=== PATIENT | female | born 1955 | race Caucasian/White ===

== ENCOUNTER → 2018-01-22 | Outpatient (CLI) | payer MEDICARE ==
--- NOTE | 2018-01-22 16:50 | WOMENS IMAGING REPORT ---
EXAM DESCRIPTION: BILAT SCREENING MAMMO W/CAD COMPLETED DATE/TIME: 01/22/2018 2:50 pm REASON FOR STUDY: ROUTINE SCREENING;Z12.31 Z12.31 ENCNTR SCREEN MAMMOGRAM FOR MALIGNANT NEOPLASM OF MICHAEL COMPARISON: 2008 TECHNIQUE: Standard craniocaudal and mediolateral oblique views of each breast recorded using [employer] acquisition. LIMITATIONS: None. FINDINGS: No masses, calcifications or architectural distortion. No areas of suspicion. Read with the assistance of CAD. .[facility] - R2 Cenova Version 1.3 .[facility] - R2 Cenova Version 1.3 .[facility] - R2 Cenova Version 2.4 .[facility] [place] R2 Cenova Version 2.4 .[facility] - R2 [employer] Version 9.2 IMPRESSION: NORMAL MAMMOGRAM. BIRADS 1. BREAST DENSITY: b. There are scattered areas of fibroglandular density. BIRAD: 1 NEGATIVE RECOMMENDATION: ROUTINE SCREENING Please continue yearly bilateral screening mammography/tomosynthesis in January 2019 COMMENT: The patient has been notified of the results by letter per SA requirements. Additional no tification policies are in place for contacting patient with suspicious or incomplete findings. Quality ID #[id number]: The [employer] recommends an annual screening mammogram for women aged 40 years or over. This facility utilizes a reminder system to ensure that all patients receive reminder letters, and/or direct phone calls for appointments. This includes reminders for routine scr eening mammograms, diagnostic mammograms, or other Breast Imaging Interventions when appropriate. Th is patient will be placed in the appropriate reminder system. The [employer] (ACR) has developed recommendations for screening MRI of the breast s in certain patient populations, to be used in conjunction with mammography. Breast MRI surveillanc e may be appropriate for women with more than 20% lifetime risk of developing breast cancer as deter mined by genetic testing, significant family history of the disease, or history of mantle radiation f or Hodgkins Disease. ACR Practice Guidelines 2008. TECHNICAL DOCUMENTATION: FINDING NUMBER: (1) ASSESSMENT: (1) JOB ID: [id number] [employer]- All Rights Reserved Reading location - IP/workstation name: [email or web address]
== END ==
LOC: WI 10:20
PROVIDERS: ATTEND Nurse Practitioner Family
DX: Z12.31 Encounter for screening mammogram for malignant neoplasm of breast (principal)
CPT/HCPCS: 77067

== ENCOUNTER → 2018-12-08 | Outpatient (CLI) | payer MEDICARE ==
--- NOTE | 2018-12-08 15:14 | RADIOLOGY REPORT (SQ) ---
EXAM DESCRIPTION: CHEST PA/LATERAL COMPLETED DATE/TIME: 12/08/2018 3:01 pm REASON FOR STUDY: COUGH COMPARISON: None. EXAM PARAMETERS: NUMBER OF VIEWS: two views TECHNIQUE: Digital Frontal and Lateral radiographic views of the chest acquired. RADIATION DOSE: NA LIMITATIONS: none FINDINGS: LUNGS AND PLEURA: No opacities, masses or pneumothorax. No pleural effusion. MEDIASTINUM AND HILAR STRUCTURES: No masses or contour abnormalities. HEART AND VASCULAR STRUCTURES: Heart normal size. No evidence for failure. BONES: No acute findings. HARDWARE: None in the chest. OTHER: No other significant finding. IMPRESSION: NO SIGNIFICANT RADIOGRAPHIC FINDING IN THE CHEST. TECHNICAL DOCUMENTATION: JOB ID: [id number] [employer]- All Rights Reserved Reading location - IP/workstation name: [email or web address]
== END ==
LOC: OD 14:45
PROVIDERS: ATTEND Nurse Practitioner Family
DX: R05 Cough (principal)
CPT/HCPCS: 71046

== ENCOUNTER 2020-06-22 09:18 | Day surgery (SDC) | payer MEDICARE ==
[~2020-06-22 09:18] MED LIST: BESIFLOXACIN HCL 0.6% OPH SUSP 5 ML BOTTLE OD PRN; CHONDR SU A NA/HYALUR INTRAOC KIT (SURGICARE) ONE; CYCLOPENTOLATE 0.2%/PHENYLEPHRINE 1% OPH SOLN 2 ML OD PRN; DORZOLAMIDE HCL 2%/TIMOLOL MALEAT 0.5% OPH SOLN 10 ML OD PRN; EPINEPHRINE INJ/PF 1 MG/1 ML AMPULE ONE; KETOROLAC TROMETHAMINE 0.45% 4 DROP/0.4 ML DROPERETTE OD PRN; LIDOCAINE 1%/PHENYLEPHRINE 1.5% 1 ML VIAL ONE; PREDNISOLONE ACETATE 1% OPH SUSP 5 ML OD PRN; TETRACAINE HCL 0.5% OPH SOLN 4 ML OD PRN; TROPICAMIDE 1% OPH SOLN 15 ML OD PRN
[2020-06-22] MEDS ORDERED: ONDANSETRON HCL INJ/PF 4 MG/2 ML SDV ONE (09:33)
[2020-06-22] MEDS ORDERED: MIDAZOLAM 2 MG/2 ML INJ ONE (09:33)
[2020-06-22] MEDS ORDERED: FENTANYL CITRATE INJ/PF 100 MCG/2 ML AMPUL ONE (09:34)
--- NOTE | 2020-06-22 10:33 | Operative Report ---
Operative Report-[facility] Operative Report: DATE OF SURGERY: June 22, 2020 PREOPERATIVE DIAGNOSIS: NUCLEAR CATARACT, RIGHT EYE. POSTOPERATIVE DIAGNOSIS: NUCLEAR CATARACT, RIGHT EYE. PROCEDURE PERFORMED: PHACOEMULSIFICATION WITH POSTERIOR CHAMBER INTRAOCULAR LENS IMPLANT, RIGHT EYE. SURGEON: Michelet Palafox DO MEDICATIONS AND ANESTHESIA: Versed: IV Versed Tetracaine drops: 1 to 2 drops given as needed COMPLICATION: None INDICATIONS FOR SURGERY: Medical necessity: Best corrected visual acuity worse than 20/40 secondary to cataracts with impairment of ability to carry out needs or desired activities, blurred vision, visual distortion, reduced contrast sensitivity and/or glare with association functional impairment and supporting documentation/testing, and cataracts causing symptomatic impairment of visual functions not corrected with tolerable changes in glasses or contact lenses interfering with activities of daily life. PROCEDURE: Consent: The risks, benefits and alternatives of this procedures was discussed with the patient. The patient read and signed the consent forms, was identified and was seated in the exam chair. IOL: MX 60 E 21.0 IOL Diopters: Phacoemulsification with posterior chamber intraocular lens implant: The face was prepped with 5% povidone iodine solution, and a few drops of 5% povidone iodine solution was instilled into the inferior fornix. A non-fenestrated drape was placed over the eye and the lids were parted with the speculum. A paracentesis was made with a 15 degree blade, and 1% lidocaine MPF followed by viscoelastic was injected into the anterior chamber. A 2.4 mm metal micro- keratome was used to create a temporal clear corneal incision. A circular anterior capsulorrhexis was created, followed by hydro-dissection and hydro- delineation. The phacoemulsification hand piece was inserted and the nucleus was removed with the Phaco chop technique. The irrigation-aspiration hand piece was used to remove the residual cortex, and vacuum the posterior capsule. The capsular bag was inflated and viscoelastic and the above-mentioned IOL was injected into the eye with care to insert both leaning and trailing haptics in the capsular bag. The irrigation/aspiration hand piece was reinserted to remove residual viscoelastic from the capsular bag and anterior chamber. The corneal incision was hydrated, and anterior chamber was inflated with sterile BSS via the paracentesis site, and found to be watertight. Postop medication: 1 drop of prednisolone into operative by followed by 1 drop of Cosopt into operative eye followed by 1 drop of Besivance intraoperative by other:
== END 2020-06-22 10:19 | disposition home or self-care (01) ==
LOC: SC 09:18
PROVIDERS: ATTEND Ophthalmology
DX: Z53.09 Procedure and treatment not carried out because of other contraindication (principal)
CPT/HCPCS: A9270; J3490; J0171; J2250; J2405; J3010

== ENCOUNTER 2020-06-22 15:52 | Inpatient (IN) | payer MEDICARE ==
--- NOTE | 2020-06-22 17:36 | ER Document Report ---
ED Medical Screen (RME) - General Chief Complaint: Blood Pressure Problem Stated Complaint: BLOOD PRESSURE ISSUES Time Seen by Provider: 06/22/20 17:23 Primary Care Provider: AMEE GRIMM FNP-C [Primary Care Provider] - Follow up as needed TRAVEL OUTSIDE OF THE [place] IN LAST 30 DAYS: No - HPI Notes: 06/22/20 17:35 64-year-old female to the emergency department with complaints of elevated blood pressure. She states she is post to get cataract surgery today but when she went her blood pressure was 190/100s. Patient states that she is had a little bit of shortness of breath with her blood pressure but she thought it was potentially just feeling nervous. She denies any chest pain or leg swelling. She denies any dizziness, lightheadedness. She states that her vision is not any worse than usual with her cataracts. She states that she called her primary care physician who is scheduled her for an appointment for tomorrow but they take wanted her to come to the emergency department for further evaluation tonight. I performed a brief medical screening exam on the patient determined that the patient needs further evaluation and management by main side provider. I have placed initial orders to help expedite care. - Related Data Allergies/Adverse Reactions: No Known Allergies Allergy (Verified 06/22/20 17:23) Home Medications: Lisinopril. Azathioprine. prednisone. hydroxychloroquine. hydrochlorothiazide. levothyroxine. mult vitamin. iron. claritin Past Medical History - Past Medical History Cardiac Medical History: Reports: Hx Hypertension Denies: Hx Heart Attack Pulmonary Medical History: Denies: Hx Asthma Neurological Medical History: Denies: Hx Cerebrovascular Accident, Hx Seizures GI Medical History: Denies: Hx Hepatitis, Hx Hiatal Hernia, Hx Ulcer Musculoskeltal Medical History: Reports Hx Arthritis Infectious Medical History: Denies: Hx Hepatitis Past Surgical History: Reports: Hx Hysterectomy. Denies: Hx Mastectomy, Hx Open Heart Surgery, Hx Pacemaker - Immunizations Hx Diphtheria, Pertussis, Tetanus Vaccination: No Physical Exam - Vital signs Vitals: Temp Pulse Resp BP Pulse Ox 98.7 F 108 H 20 190/95 H 98 06/22/20 15:56 06/22/20 15:56 06/22/20 15:56 06/22/20 15:56 06/22/20 15:56 Course - Vital Signs Vital signs: Temp Pulse Resp BP Pulse Ox 98.7 F 108 H 20 190/95 H 98 06/22/20 15:56 06/22/20 15:56 06/22/20 15:56 06/22/20 15:56 06/22/20 15:56 Doctor's Discharge - Discharge Referrals: AMEE GRIMM FNP-C [Primary Care Provider] - Follow up as needed
--- NOTE | 2020-06-22 17:54 | RADIOLOGY REPORT (SQ) ---
EXAM DESCRIPTION: CHEST 2 VIEWS IMAGES COMPLETED DATE/TIME: 06/22/2020 5:43 pm REASON FOR STUDY: SOB, elevated blood pressure COMPARISON: 12/08/2018 TECHNIQUE: Frontal and lateral radiographic views of the chest acquired. NUMBER OF VIEWS: Two view. LIMITATIONS: None. FINDINGS: LUNGS AND PLEURA: No pneumothorax. Diffusely increased interstitial prominence bilaterall y. No consolidation or significant pleural effusion. MEDIASTINUM AND HILAR STRUCTURES: Stable. HEART AND VASCULAR STRUCTURES: Similar cardiomegaly. BONES: No acute findings. HARDWARE: None in the chest. OTHER: No other significant finding. IMPRESSION: Diffusely increased interstitial prominence bilaterally. Cardiomegaly. No consolidatio n or significant pleural effusion. TECHNICAL DOCUMENTATION: JOB ID: [id number] [employer]- All Rights Reserved Reading location - IP/workstation name: [email or web address]
[2020-06-22 18:21] LABS: ABSOLUTE LYMPHOCYTES (AUTO) 0.6 10^3/uL (0.5-4.7); ABSOLUTE MONOCYTES (AUTO) 0.4 10^3/uL (0.1-1.4); ABSOLUTE NEUT (AUTO) 5.2 10^3/uL (1.7-8.2); BASOPHILS % (AUTO) 0.5 % (0-2); EOSINOPHILS % (AUTO) 0.5 % (0-6); MEAN CORPUSCULAR HEMOGLOBIN 27.6 pg (27.0-33.4); MEAN CORPUSCULAR HGB CONC 33.5 g/dL (32.0-36.0); MEAN CORPUSCULAR VOLUME 83 fl (80-97); MONOCYTES % (AUTO) 6.8 % (3-13); PLATELET COUNT 112 10^3/uL (150-450); RED CELL DISTRIBUTION WIDTH 15.2 % (11.5-14.0); SEGMENTED NEUTROPHILS % (AUTO) 83.2 % (42-78); TOTAL CELLS COUNTED % (AUTO) 100 %; WHITE BLOOD COUNT 6.2 10^3/uL (4.0-10.5)
[2020-06-22 18:41] LABS: ALBUMIN 3.7 g/dL (3.5-5.0); ALKALINE PHOSPHATASE 64 U/L (38-126); ANION GAP 11 (5-19); ASPARTATE AMINO TRANSFERASE 37 U/L (14-36); BILIRUBIN,DIRECT 0.4 mg/dL (0.0-0.4); BILIRUBIN,TOTAL 0.8 mg/dL (0.2-1.3); BLOOD UREA NITROGEN 32 mg/dL (7-20); CALCIUM 9.2 mg/dL (8.4-10.2); CARBON DIOXIDE 24 mmol/L (22-30); CHLORIDE 108 mmol/L (98-107); GLUCOSE 93 mg/dL (75-110); POTASSIUM 3.9 mmol/L (3.6-5.0); TOTAL PROTEIN 6.9 g/dL (6.3-8.2)
--- NOTE | 2020-06-22 22:06 | EKG REPORT ---
SEVERITY:- ABNORMAL ECG - SINUS RHYTHM LVH WITH SECONDARY REPOLARIZATION ABNORMALITY : Confirmed by: Des Palacios 22-Jun-2020 22:05:54
[2020-06-23] MEDS ORDERED: LORAZEPAM 0.5 MG TABLET PO ONE (00:46)
--- NOTE | 2020-06-23 01:01 | ER Document Report ---
ED General - General Chief Complaint: Blood Pressure Problem Stated Complaint: BLOOD PRESSURE ISSUES Time Seen by Provider: 06/22/20 17:23 Mode of Arrival: Ambulatory Information source: Patient Notes: 64-year-old female with history of hypothyroidism, lupus, arthritis and hypertension presenting to the emergency department with complaints of elevated blood pressure and shortness of breath. She reports she has been on lisinopril 20 mg for well over a year. She does report that the last few time she went and saw her lupus doctor he told her that her blood pressure was elevated but to co ntinue taking her medication. She states this morning she went to have outpatient cataract surgery and they found her to have a blood pressure of 194/116. They told her they were not able to perform the surgery due to this. She states it was after that time that she started feeling short of breath. She feels that the shortness of breath is likely because she is nervous. She denies any history of anxiety. She does report pain under her bilateral breasts every time she takes a deep breath. TRAVEL OUTSIDE OF THE [place] IN LAST 30 DAYS: No - Related Data Allergies/Adverse Reactions: Iodinated Contrast Media Allergy (Verified 06/23/20 01:38) Generalized rash Home Medications: Lisinopril. Azathioprine. prednisone. hydroxychloroquine. hydrochlorothiazide. levothyroxine. mult vitamin. iron. claritin Past Medical History - General Information source: Patient - Social History Smoking Status: Former Smoker Frequency of alcohol use: None Drug Abuse: None Family History: Hypertension - Past Medical History Cardiac Medical History: Reports: Hx Hypertension Pulmonary Medical History: Denies: Hx Asthma Endocrine Medical History: Reports: Hx Hypothyroidism Malignancy Medical History: Reports: Hx Skin Cancer Musculoskeletal Medical History: Reports Hx Arthritis Past Surgical History: Reports: Hx Hysterectomy, Hx Whipple, Other - skin cancer removal - Immunizations Hx Diphtheria, Pertussis, Tetanus Vaccination: No Review of Systems - Review of Systems Respiratory: Short of breath -: Yes All other systems reviewed and negative Physical Exam - Vital signs Vitals: Temp Pulse Resp BP Pulse Ox 98.7 F 108 H 20 190/95 H 98 06/22/20 15:56 06/22/20 15:56 06/22/20 15:56 06/22/20 15:56 06/22/20 15:56 - Notes Notes: PHYSICAL EXAMINATION: GENERAL: Well-appearing, well-nourished and in no acute distress. HEAD: Atraumatic, normocephalic. EYES: Pupils equal round and reactive to light, extraocular movements intact, conjunctiva are normal. ENT: Nares patent, oropharynx clear without exudates. Moist mucous membranes. NECK: Normal range of motion, supple without lymphadenopathy LUNGS: Breath sounds clear to auscultation bilaterally and equal. No wheezes rales or rhonchi. Increased work of breathing, tachypnea. HEART: Regular rate and rhythm without murmurs ABDOMEN: Soft, nontender, nondistended abdomen. No guarding, no rebound. No masses appreciated. Female : deferred Musculoskeletal: Normal range of motion, no pitting or edema. No cyanosis. NEUROLOGICAL: Cranial nerves grossly intact. Normal speech, normal gait. Normal sensory, motor exams PSYCH: Anxious. SKIN: Warm, Dry, normal turgor, no rashes or lesions noted. Course - Re-evaluation Re-evalutation: Patient admitted to the hospitalist for acute congestive heart failure and hypertensive urgency. - Vital Signs Vital signs: Temp Pulse Resp BP Pulse Ox 98.5 F 66 16 156/92 H 99 06/24/20 13:50 06/24/20 13:50 06/24/20 13:50 06/24/20 13:50 06/24/20 13:50 - Laboratory Result Diagrams: 06/24/20 06:05 06/24/20 06:05 Laboratory results interpreted by me: 06/22/20 06/22/20 06/22/20 17:45 17:45 17:45 RBC 2.90 L Hgb 8.0 L Hct 24.0 L RDW 15.2 H Plt Count 112 L Lymph % (Auto) 9.0 L Seg Neutrophils % 83.2 H Chloride 108 H BUN 32 H Est GFR ( Amer) 55 L Est GFR (MDRD) Non-Af 46 L AST 37 H NT-Pro-B Natriuret Pep 24023 H - Diagnostic Test Radiology reviewed: Image reviewed, Reports reviewed - EKG Interpretation by Me EKG shows normal: Sinus rhythm - rate 98, LVH, no obvious acute ST segment elevations or depressions. Discharge - Discharge Clinical Impression: Acute CHF (congestive heart failure) Qualifiers: Heart failure type: unspecified Qualified Code(s): I50.9 - Heart failure, unspecified Hypertension Qualifiers: Hypertension type: unspecified Qualified Code(s): I10 - Essential (primary) hypertension Condition: Fair Disposition: ADMITTED INPATIENT Admitting Provider: Nabor (Hospitalist) Unit Admitted: [facility]
[2020-06-23] MEDS ORDERED: NITROGLYCERIN 2% OINTMENT 1 GM PACKET TP ONE (01:52)
[2020-06-23] MEDS ORDERED: FUROSEMIDE INJ/PF 40 MG/4 ML SDV IV ONE (01:55)
[2020-06-23] MEDS ORDERED: ACETAMINOPHEN 325 MG TABLET PO ONE (02:14)
--- NOTE | 2020-06-23 02:25 | RADIOLOGY REPORT (SQ) ---
CT CHEST WITHOUT INTRAVENOUS CONTRAST: 06/23/2020 1:21 AM CDT HISTORY: 64-year old patient with chest pain and dyspnea. COMPARISON: None available TECHNIQUE: Serial 3 mm axial images were obtained from above the thoracic inlet to the upper abdomen without intravenous contrast administered. Sagittal and coronal reconstructions were also obtained and reviewed. This exam was performed according to our departmental dose-optimization program, which includes automated exposure control, adjustment of the mA and/or KV according to the patient's size and/or use of iterative reconstruction technique. FINDINGS: Both lobes of the thyroid appear homogenous with no suspicious nodules identified. The ascending aorta is enlarged and measures at least 4.1 cm in transverse dimension.. The main pulmonary artery is enlarged and measures at least 4.6 cm in transverse dimension. The heart is enlarged. Trace pericardial fluid is seen. Coronary artery calcification are seen. No focal consolidative airspace opacity is seen. There is some mild interlobular septal thickening and groundglass change. There is trace bilateral pleural thickening or fluid noted. There is no evidence of a pneumothorax. The central tracheobronchial tree is patent. Evaluation for lung nodules is limited by respiratory motion artifact. No significant supraclavicular, axillary, or mediastinal lymphadenopathy is identified. There are shotty nonspecific pretracheal and paratracheal lymph nodes measuring at least 1.6 cm in short axis dimension. Evaluation of the upper abdomen is limited by the lack of intravenous contrast. No gross abnormality seen at the upper abdomen. There is trace pneumobilia present. There are splenic granulomas present. Review of the bone show no evidence of any suspicious lytic or blastic lesions. IMPRESSION: There is interlobular septal thickening and groundglass change present. This may reflect mild edema. The main pulmonary artery is enlarged, which can be seen with pulmonary hypertension. The ascending aorta is enlarged which can be followed within one year.
[2020-06-23] MEDS ORDERED: NITROGLYCERIN/D5W 50 MG/250 ML RTUINJ IV PRN ×2 (02:27→03:01)
[2020-06-23] MEDS ORDERED: MORPHINE SULFATE 10 MG/ML INJ IV ONE (02:49)
[2020-06-23] MEDS ORDERED: MAG HYDROX/AL HYDROX/SIMETH SUSP 30 ML UDCUP PO PRN (03:01)
[2020-06-23] MEDS ORDERED: ONDANSETRON 4 MG TAB.RAPDIS PO PRN (03:01)
[2020-06-23] MEDS ORDERED: ACETAMINOPHEN 325 MG TABLET PO PRN (03:01)
[2020-06-23] MEDS ORDERED: MAGNESIUM HYDROXIDE SUSP 30 ML UDCUP PO PRN (03:01)
[2020-06-23] MEDS ORDERED: GUAIFENESIN SYRP 200 MG/10 ML UDC PO PRN (03:10)
[2020-06-23] MEDS ORDERED: HYDRALAZINE HCL INJ/PF 20 MG/1 ML SDV IV PRN (03:10)
[2020-06-23] MEDS ORDERED: MELATONIN 5 MG TABLET PO PRN (03:10)
[2020-06-23] MEDS ORDERED: MORPHINE SULFATE 10 MG/ML INJ IV PRN (03:10)
[2020-06-23] MEDS ORDERED: LORAZEPAM INJ 2 MG/1 ML VIAL IV PRN (03:10)
[2020-06-23] MEDS ORDERED: METOPROLOL TARTRATE PF/INJ 5 MG/5 ML SDV IV PRN (03:12)
--- NOTE | 2020-06-23 06:34 | PDOC H&P ---
History of Present Illness Admission Date/PCP: 06/23/20 03:09 VALDEMAR CHAVEZ-Nida Patient complains of: Dyspnea History of Present Illness: DANDRE SANTOS is a 64 year old female who presented to the emergency room with acute dyspnea. This morning she went to a same-day surgery appointment where she was informed her blood pressure was too high to allow for surgery to be performed. She went home and over the course of the day became short of breath with her dyspnea being worsened by exertion and accompanied by a sharp pain under her breasts bilaterally with deep inspirations. Her dyspnea gradually worsened throughout the day and became moderately severe prior to her emergency room arrival. She denies other associated or accompanying signs and symptoms. She denies prior similar episodes. She denies identification of any additional aggravating or ameliorating factors for her dyspnea. In the emergency room she was found to have severe hypertension with acute congestive heart failure and imminent pulmonary edema. She was treated with IV Lasix, oxygen via BiPAP and a nitroglycerin infusion. She showed improvement with those interventions and was subsequently admitted to the hospital for further evaluation and treatment. Past Medical History Cardiac Medical History: Reports: Hypertension Denies: Coronary Artery Disease, DVT, Myocardial Infarction, Hyperlipidema, Pulmonary Embolism Pulmonary Medical History: Denies: Asthma, Chronic Obstructive Pulmonary Disease (COPD) EENT Medical History: Reports: Cataracts Denies: Ears - Hearing aids Neurological Medical History: Denies: Hemorrhagic CVA, Ischemic CVA, Seizures Endocrine Medical History: Reports: Hypothyroidism Denies: Diabetes Mellitus Type 1, Diabetes Mellitus Type 2, Hyperthyroidism Renal/ Medical History: Denies: Chronic Kidney Disease, Nephrolithiasis Malignancy Medical History: Reports: Skin Cancer GI Medical History: Reports: Gastroesophageal Reflux Disease Denies: Cirrhosis, Hepatitis, Hiatal Hernia, Peptic Ulcer Disease Musculoskeltal Medical History: Reports: Arthritis Denies: Fibromyalgia Skin Medical History: Denies: Eczema, Psoriasis Psychiatric Medical History: Denies: Alcohol Dependency, Substance Abuse, Tobacco Dependency Traumatic Medical History: Reports: None Hematology: Reports: Anemia - Chronic Denies: Bleeding Tendencies Infectious Medical History: Reports: None Past Surgical History Past Surgical History: Reports: Hysterectomy, Other - Skin cancer excision, Whipple procedure Social History Information Source: Patient Lives with: Spouse/Significant other Smoking Status: Former Smoker Electronic Cigarette use?: No Frequency of Alcohol Use: None Hx Recreational Drug Use: No Drugs: None Hx Prescription Drug Abuse: No - Advance Directive Resuscitation Status: Full Code Surrogate healthcare decision maker:: Holger Nettles Family History Family History: Hypertension Parental Family History Reviewed: Yes Children Family History Reviewed: No Sibling(s) Family History Reviewed.: Yes Medication/Allergy Home Medications: Azathioprine [Imuran 50 mg Tablet] 50 mg PO TID 06/14/20 Hydrochlorothiazide [Hydrodiuril 12.5 mg Tablet] 12.5 mg PO QAM 06/14/20 Hydroxychloroquine Sulfate [Plaquenil] 100 mg PO QAM 06/14/20 Iron 65 mg PO 06/14/20 Levothyroxine Sodium [Synthroid] 200 mcg PO QAM 06/14/20 Lisinopril [Prinivil] 20 mg PO QAM 06/14/20 Loratadine [Claritin 10 mg Tablet] 10 mg PO DAILY 06/14/20 Multivitamin [Multivitamins] 1 each PO QAM 06/14/20 Prednisone [Deltasone 20 mg Tablet] 20 mg PO 06/14/20 Allergies/Adverse Reactions: Iodinated Contrast Media Allergy (Verified 06/23/20 01:38) Generalized rash Review of Systems Constitutional: ABSENT: chills, fever(s) Eyes: ABSENT: visual disturbances, other - Eye pain Ears: ABSENT: hearing changes, other - Ear pain Nose, Mouth, and Throat: ABSENT: headache(s), sore throat Cardiovascular: PRESENT: as per HPI, dyspnea on exertion. ABSENT: chest pain, palpitations Respiratory: PRESENT: as per HPI, dyspnea. ABSENT: cough Gastrointestinal: ABSENT: abdominal pain, constipation, diarrhea, nausea, vomiting Genitourinary: ABSENT: dysuria, hematuria Musculoskeletal: PRESENT: other - Chronic arthritis. ABSENT: joint swelling, muscle weakness Integumentary: ABSENT: pruritus, rash Neurological: ABSENT: confusion, convulsions, focal weakness, memory loss, syncope Psychiatric: ABSENT: anxiety, depression Endocrine: ABSENT: cold intolerance, heat intolerance Hematologic/Lymphatic: ABSENT: easy bleeding, easy bruising Allergic/Immunologic: ABSENT: seasonal rhinorrhea Physical Exam Vital Signs: Temp Pulse Resp BP Pulse Ox 99.0 F 98 29 H 166/104 H 100 06/23/20 01:11 06/23/20 00:29 06/23/20 02:45 06/23/20 02:45 06/23/20 02:45 Intake & Output 06/21/20 06/22/20 06/23/20 23:59 23:59 23:59 Weight 78.2 kg General appearance: PRESENT: no acute distress, cooperative, other - On BiPAP 10 my exam Head exam: PRESENT: atraumatic, normocephalic Eye exam: PRESENT: conjunctiva pink. ABSENT: conjunctival injection Ear exam: PRESENT: normal external ear exam. ABSENT: bleeding, drainage Mouth exam: PRESENT: dry mucosa, neck supple Neck exam: ABSENT: thyromegaly, tracheal deviation Respiratory exam: PRESENT: rales - Fine rales in the lower one third of both lung garcia, symmetrical, other - On BiPAP at the time of my exam Cardiovascular exam: PRESENT: gallop - S4 gallop rhythm, RRR. ABSENT: clicks, rubs Pulses: PRESENT: normal radial pulses, normal dorsalis pedis pul Vascular exam: PRESENT: normal capillary refill. ABSENT: pallor GI/Abdominal exam: PRESENT: normal bowel sounds, soft Rectal exam: PRESENT: deferred Extremities exam: ABSENT: joint swelling, pedal edema Musculoskeletal exam: ABSENT: deformity, dislocation Neurological exam: PRESENT: alert, oriented to person, oriented to place, oriented to time, oriented to situation, CN II-XII grossly intact. ABSENT: motor sensory deficit Psychiatric exam: PRESENT: appropriate affect, normal mood Skin exam: PRESENT: dry, intact, warm. ABSENT: jaundice, rash, urticaria Results Laboratory Results: 06/22/20 17:45 06/22/20 06/22/20 17:45 17:45 WBC 6.2 RBC 2.90 L Hgb 8.0 L Hct 24.0 L MCV 83 MCH 27.6 MCHC 33.5 RDW 15.2 H Plt Count 112 L Seg Neutrophils % 83.2 H Sodium 142.5 Potassium 3.9 Chloride 108 H Carbon Dioxide 24 Anion Gap 11 BUN 32 H Creatinine 1.20 Est GFR ( Amer) 55 L Glucose 93 Calcium 9.2 Total Bilirubin 0.8 AST 37 H Alkaline Phosphatase 64 Total Protein 6.9 Albumin 3.7 06/22/20 06/22/20 06/22/20 17:45 17:45 22:11 Troponin I 0.049 0.060 NT-Pro-B Natriuret Pep [id number] H Impressions: Chest X-Ray 06/22/20 17:34 IMPRESSION: Diffusely increased interstitial prominence bilaterally. Cardiomegaly. No consolidation or significant pleural effusion. Chest CT 06/23/20 01:43 IMPRESSION: There is interlobular septal thickening and groundglass change present. This may reflect mild edema. The main pulmonary artery is enlarged, which can be seen with pulmonary hypertension. The ascending aorta is enlarged which can be followed within one year. Assessment and Plan - Diagnosis (1) Acute CHF (congestive heart failure) Qualifiers: Heart failure type: unspecified Qualified Code(s): I50.9 - Heart failure, unspecified Is this a current diagnosis for this admission?: Yes (2) Hypertensive crisis Is this a current diagnosis for this admission?: Yes (3) Hypothyroidism Qualifiers: Hypothyroidism type: unspecified Qualified Code(s): E03.9 - Hypothyroidism, unspecified Is this a current diagnosis for this admission?: Yes (4) Systemic lupus erythematosus arthritis Is this a current diagnosis for this admission?: Yes - Plan Summary Summary: Patient will be admitted to the [facility] where she will receive routine supportive and symptomatic cares. Patient will be treated and evaluated per the congestive heart failure protocol. Consultation with Dr. Wren will be obtained. Patient will be treated with morphine sulfate 2 mg IV every hour as needed for severe dyspnea. She will receive Lasix 40 mg IV every 12 hours. She will be placed on nitroglycerin 2% ointment 1 g topically every 6 hours. Intravenous hydralazine and/or metoprolol will be used for control of hypertension. She will be placed on a cardiac diet. Additional laboratory and/or radiographic evaluations will be obtained as appropriate. - Time Time Spent with patient: Less than 15 minutes Medications reviewed and adjusted accordingly: Yes Anticipated Discharge Disposition: Home with Home Health Anticipated Discharge Timeframe: within 72 hours - Inpatient Certification Based on my medical assessment, after consideration of the patient's comorbidities, presenting symptoms, or acuity I expect that the services needed warrant INPATIENT care.: Yes I certify that my determination is in accordance with my understanding of Medicare's requirements for reasonable and necessary INPATIENT services [42 CFR 412.3e].: Yes Medical Necessity: Need Close Monitoring Due to Risk of Patient Decompensation, Need For Continuous Telemetry Monitoring, Risk of Complication if Not Cared For in Hospital
[2020-06-23] MEDS ORDERED: CLOPIDOGREL BISULFATE 75 MG TABLET PO SCH (10:00)
[2020-06-23] MEDS: ASPIRIN 81 MG TABLET, ENT COATED PO SCH (10:44)
[2020-06-23] MEDS: FUROSEMIDE INJ/PF 40 MG/4 ML SDV IV SCH ×2 (10:44→21:24)
[2020-06-23] MEDS: LISINOPRIL 10 MG TABLET PO SCH (10:45)
[2020-06-23] MEDS: METOPROLOL TARTRATE 50 MG TABLET PO SCH (10:45)
[2020-06-23] MEDS: POTASSIUM CHLORIDE 10 MEQ TABLET.ER PO SCH ×3 (10:45→18:16)
[2020-06-23] MEDS: DOCUSATE SODIUM 100 MG CAPSULE PO SCH (10:50)
[2020-06-23] MEDS: NITROGLYCERIN 2% OINTMENT 1 GM PACKET TP SCH ×3 (12:00→18:17)
[2020-06-23] MEDS: HEPARIN SOD (PORCINE) 5,000 UNIT/ML 1 ML VIAL SUBCUT SCH (13:25)
[2020-06-23] MEDS ORDERED: PREDNISONE 20 MG TABLET PO SCH (16:00)
--- NOTE | 2020-06-23 16:04 | PDOC PROGRESS REPORT ---
Subjective Progress Note for:: 06/23/20 Subjective:: 06/23/20 D2 Hospital stay. She was seen and examined at bedside. She denies any SOB, no chest pain, no palpitations. She was started on lasix, metoprolol, EVANS and plavix. She denied any prior episode of SOB or cardiac issues. She has never underwent stress test before. Reason For Visit: ACUTE CHF,HYPERTENSION Physical Exam Vital Signs: Temp Pulse Resp BP Pulse Ox 99.5 F 84 16 151/88 H 97 06/23/20 12:51 06/23/20 14:00 06/23/20 12:51 06/23/20 12:51 06/23/20 12:51 Intake & Output 06/22/20 06/23/20 06/24/20 06:59 06:59 06:59 Output Total 800 Balance -800 Weight 78.2 kg General appearance: PRESENT: no acute distress, cooperative Head exam: PRESENT: atraumatic, normocephalic Eye exam: PRESENT: EOMI, PERRLA Mouth exam: PRESENT: moist Neck exam: PRESENT: full ROM Respiratory exam: PRESENT: rales, symmetrical, unlabored Cardiovascular exam: PRESENT: RRR, +S1, +S2 Pulses: PRESENT: +2 pedal pulses bilateral GI/Abdominal exam: PRESENT: normal bowel sounds, soft. ABSENT: tenderness Extremities exam: PRESENT: full ROM Musculoskeletal exam: PRESENT: full ROM Neurological exam: PRESENT: alert, awake, oriented to person, oriented to place, oriented to time, oriented to situation Psychiatric exam: PRESENT: normal mood Skin exam: PRESENT: normal color Results Laboratory Results: 06/22/20 17:45 06/22/20 17:45 06/22/20 06/22/20 17:45 17:45 WBC 6.2 RBC 2.90 L Hgb 8.0 L Hct 24.0 L MCV 83 MCH 27.6 MCHC 33.5 RDW 15.2 H Plt Count 112 L Seg Neutrophils % 83.2 H Sodium 142.5 Potassium 3.9 Chloride 108 H Carbon Dioxide 24 Anion Gap 11 BUN 32 H Creatinine 1.20 Est GFR ( Amer) 55 L Glucose 93 Calcium 9.2 Total Bilirubin 0.8 AST 37 H Alkaline Phosphatase 64 Total Protein 6.9 Albumin 3.7 06/22/20 06/22/20 06/22/20 17:45 17:45 22:11 Troponin I 0.049 0.060 NT-Pro-B Natriuret Pep [id number] H 06/23/20 09:05 Troponin I 0.064 NT-Pro-B Natriuret Pep Impressions: Chest X-Ray 06/22/20 17:34 IMPRESSION: Diffusely increased interstitial prominence bilaterally. Cardiomegaly. No consolidation or significant pleural effusion. Chest CT 06/23/20 01:43 IMPRESSION: There is interlobular septal thickening and groundglass change present. This may reflect mild edema. The main pulmonary artery is enlarged, which can be seen with pulmonary hypertension. The ascending aorta is enlarged which can be followed within one year. Assessment and Plan - Diagnosis (1) Congestive heart failure due to high blood pressure Qualifiers: Heart failure type: unspecified Qualified Code(s): I11.0 - Hypertensive hea rt disease with heart failure Is this a current diagnosis for this admission?: Yes Plan: - came in with elevated BP 200/100s and SOB - no known prior cardiac history - EKG sinus rhythm, LVH - BNP 62,000 - CXR diffusely increased interstitial prominence bilaterally. Cardiomegaly. No consolidation or significant pleural effusion. - trop 0.049>0.060>0.064 - on Lasix 40 Iv BID - started on beta zhen and EVANS - echo pending - daily weights - strict IO (2) Non-ST elevation (NSTEMI) myocardial infarction Is this a current diagnosis for this admission?: Yes Plan: - came in due to SOB, denies chest pain, jaw pain - former smoker quit a few years ago, 1ppd for 10 years, has SLE, no prior cardiac history - EKG sinus rhythm, LVH - Trop 0.049>0.060>0.064 no active chest pain - trop leak likely 2/2 elevated blood pressure rather than coronary thrombus - on lovenox - started on aspirin, EVANS, BB, statin - will monitor (3) Hypertensive crisis Is this a current diagnosis for this admission?: Yes Plan: - came in with 181/106 BP - with pulm congestion - improved on lasix - started on lisinopril beta zhen (4) Systemic lupus erythematosus arthritis Is this a current diagnosis for this admission?: Yes Plan: on resume plaquenil and prednisone (5) Hypothyroidism Qualifiers: Hypothyroidism type: unspecified Qualified Code(s): E03.9 - Hypothyroidism, unspecified Is this a current diagnosis for this admission?: Yes Plan: - continue levothyroxine - Time Time Spent with patient: 25-34 minutes Medications reviewed and adjusted accordingly: Yes Anticipated Discharge Disposition: Home, Self Care Anticipated Discharge Timeframe: within 48 hours
[2020-06-23] MEDS: LEVOTHYROXINE SODIUM 0.1 MG TABLET PO SCH (18:19)
[2020-06-23] MEDS: PREDNISONE 10 MG TABLET PO SCH (18:21)
[2020-06-23] MEDS: ENOXAPARIN SODIUM INJ 80 MG/0.8 ML DISP.SYRIN SUBCUT SCH (21:25)
[2020-06-23] MEDS ORDERED: ATORVASTATIN CALCIUM 40 MG TABLET PO SCH (22:00)
[2020-06-24] MEDS: NITROGLYCERIN 2% OINTMENT 1 GM PACKET TP SCH ×3 (00:50→13:37)
[2020-06-24] MEDS: PANTOPRAZOLE SODIUM 40 MG TABLET.DR PO SCH ×2 (03:22→05:32)
[2020-06-24] MEDS: HEPARIN SOD (PORCINE) 5,000 UNIT/ML 1 ML VIAL SUBCUT SCH (03:23)
[2020-06-24] MEDS: LEVOTHYROXINE SODIUM 0.1 MG TABLET PO SCH (05:32)
[2020-06-24 06:41] LABS: APPEARANCE,URINE CLEAR; BILIRUBIN,URINE NEGATIVE (NEGATIVE); COLOR,URINE YELLOW; GLUCOSE, URINE NEGATIVE (NEGATIVE); KETONES,URINE NEGATIVE (NEGATIVE); LEUKOCYTE ESTERASE,URINE NEGATIVE (NEGATIVE); NITRITE,URINE NEGATIVE (NEGATIVE); PROTEIN,URINE 30 mg/dL (NEGATIVE); URINE SPECIFIC GRAVITY 1.008; UROBILINOGEN,URINE NEGATIVE mg/dL (<2.0)
[2020-06-24 06:49] LABS: ABSOLUTE LYMPHOCYTES (AUTO) 0.4 10^3/uL (0.5-4.7); ABSOLUTE MONOCYTES (AUTO) 0.3 10^3/uL (0.1-1.4); BASOPHILS % (AUTO) 0.3 % (0-2); EOSINOPHILS % (AUTO) 0.1 % (0-6); HEMATOCRIT 23.1 % (36.0-47.0); LYMPHOCYTES % (AUTO) 11.8 % (13-45); MEAN CORPUSCULAR HEMOGLOBIN 27.4 pg (27.0-33.4); MEAN CORPUSCULAR HGB CONC 33.5 g/dL (32.0-36.0); MEAN CORPUSCULAR VOLUME 82 fl (80-97); MONOCYTES % (AUTO) 7.4 % (3-13); RED BLOOD COUNT 2.82 10^6/uL (3.72-5.28); RED CELL DISTRIBUTION WIDTH 15.1 % (11.5-14.0); SEGMENTED NEUTROPHILS % (AUTO) 80.4 % (42-78); TOTAL CELLS COUNTED % (AUTO) 100 %; WHITE BLOOD COUNT 3.7 10^3/uL (4.0-10.5)
[2020-06-24 07:03] LABS: ANION GAP 9 (5-19); BLOOD UREA NITROGEN 41 mg/dL (7-20); CALCIUM 8.9 mg/dL (8.4-10.2); CARBON DIOXIDE 26 mmol/L (22-30); CHLORIDE 106 mmol/L (98-107); CHOLESTEROL 165.04 mg/dL (0-200); GLUCOSE 111 mg/dL (75-110); TRIGLYCERIDES 157 mg/dL (<150)
[2020-06-24 07:13] LABS: DIRECT LDL 70 mg/dL (<100)
[2020-06-24 07:17] LABS: VLDL CHOLESTEROL 31.4 mg/dL (10-31)
[2020-06-24 08:00] LABS: PLATELET COUNT 70 10^3/uL (150-450)
[2020-06-24 08:01] LABS: HEMOGLOBIN 7.7 g/dL (12.0-15.5)
[2020-06-24] MEDS: LISINOPRIL 10 MG TABLET PO SCH (09:50)
[2020-06-24] MEDS: METOPROLOL TARTRATE 50 MG TABLET PO SCH (09:50)
[2020-06-24] MEDS: DOCUSATE SODIUM 100 MG CAPSULE PO SCH (09:51)
[2020-06-24] MEDS: ASPIRIN 81 MG TABLET, ENT COATED PO SCH (09:51)
[2020-06-24] MEDS: POTASSIUM CHLORIDE 10 MEQ TABLET.ER PO SCH ×2 (09:51→13:38)
[2020-06-24] MEDS: PREDNISONE 10 MG TABLET PO SCH (09:51)
[2020-06-24] MEDS: ENOXAPARIN SODIUM INJ 80 MG/0.8 ML DISP.SYRIN SUBCUT SCH (09:52)
[2020-06-24 13:51] VITALS: BP 156/92
[2020-06-24] MEDS ORDERED: FUROSEMIDE INJ/PF 40 MG/4 ML SDV IV ONE (14:00)
--- NOTE | 2020-06-25 06:49 | PDOC DISCHARGE SUMMARY ---
Impression - Admit/DC Date/PCP Admission Date/Primary Care Provider: 06/23/20 03:09 GLORIA CHAVEZ Discharge Date: 06/25/20 - Discharge Diagnosis (1) Congestive heart failure due to high blood pressure Is this a current diagnosis for this admission?: Yes (2) Non-ST elevation (NSTEMI) myocardial infarction Is this a current diagnosis for this admission?: Yes (3) Hypertensive crisis Is this a current diagnosis for this admission?: Yes (4) Systemic lupus erythematosus arthritis Is this a current diagnosis for this admission?: Yes (5) Hypothyroidism Is this a current diagnosis for this admission?: Yes - Additional Information Resuscitation Status: Full Code Discharge Diet: Cardiac Discharge Activity: Activity As Tolerated, Balance Activity w/Rest, Weigh Daily Referrals: AMEE GRIMM FNP-C [Primary Care Provider] - 06/27/20 10:30 am Prescriptions: Prednisone [Deltasone 10 mg Tablet] 10 mg PO DAILY 30 Days #30 tablet Aspirin [Ecotrin 81 mg EC Tablet] 81 mg PO DAILY 30 Days #30 tabec Sacubitril/Valsartan [Entresto 24 mg/26 mg Tablet] 1 tab PO BID 30 Days #60 tablet Furosemide [Lasix 20 mg Tablet] 20 mg PO QAM 14 Days #30 tablet Atorvastatin Calcium [Lipitor 40 mg Tablet] 40 mg PO QHS 30 Days #30 tablet Metoprolol Tartrate [Lopressor 50 mg Tablet] 50 mg PO DAILY 30 Days #30 tablet Home Medications: Hydroxychloroquine Sulfate [Plaquenil] 200 mg PO QAM 06/14/20 Levothyroxine Sodium [Synthroid] 200 mcg PO Q6AM 06/14/20 Ferrous Sulfate [Feosol 325 mg Tablet] 325 mg PO DAILY 06/23/20 Loratadine [Claritin 10 mg Tablet] 10 mg PO DAILY 06/23/20 Multivitamin [Tab-A-Carter (Multiple Vitamin) Tablet] 1 tab PO DAILY 06/23/20 Triamcinolone Acetonide [Aristocort 0.1% Cream] 1 applic TP TIDP PRN 06/23/20 Aspirin [Ecotrin 81 mg EC Tablet] 81 mg PO DAILY 30 Days #30 tabec 06/24/20 Atorvastatin Calcium [Lipitor 40 mg Tablet] 40 mg PO QHS 30 Days #30 tablet 06/24/20 Furosemide [Lasix 20 mg Tablet] 20 mg PO QAM 14 Days #30 tablet 06/24/20 Metoprolol Tartrate [Lopressor 50 mg Tablet] 50 mg PO DAILY 30 Days #30 tablet 06/24/20 Prednisone [Deltasone 10 mg Tablet] 10 mg PO DAILY 30 Days #30 tablet 06/24/20 Sacubitril/Valsartan [Entresto 24 mg/26 mg Tablet] 1 tab PO BID 30 Days #60 tablet 06/24/20 History of Present Illiness History of Present Illness: DANDRE SANTOS is a 64 year old female, who presented to the emergency room with acute dyspnea. This morning she went to a same-day surgery appointment where she was informed her blood pressure was too high to allow for surgery to be performed. She went home and over the course of the day became short of breath with her dyspnea being worsened by exertion and accompanied by a sharp pain under her breasts bilaterally with deep inspirations. Her dyspnea gradually worsened throughout the day and became moderately severe prior to her emergency room arrival. She denies other associated or accompanying signs and symptoms. She denies prior similar episodes. She denies identification of any additional aggravating or ameliorating factors for her dyspnea. In the emergency room she was found to have severe hypertension with acute congestive heart failure and imminent pulmonary edema. She was treated with IV Lasix, oxygen via BiPAP and a nitroglycerin infusion. She showed improvement with those interventions and was subsequently admitted to the hospital for further evaluation and treatment. Hospital Course Hospital Course: 06/23/20 D2 Hospital stay. She was seen and examined at bedside. She denies any SOB, no chest pain, no palpitations. She was started on lasix, metoprolol, EVANS and plavix. She denied any prior episode of SOB or cardiac issues. She has never underwent stress test before. 06/24/20 She remained stable with no SOB, no chest pain. Echo result came back and showed EF of 25%, grade III diastolic dysfunction but she is otherwise stable. She was discharged on beta zhen, lisinopril, aspirin and statin. 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 Physical Exam Vital Signs: Temp Pulse Resp BP Pulse Ox 98.5 F 66 16 156/92 H 99 06/24/20 13:50 06/24/20 13:50 06/24/20 13:50 06/24/20 13:50 06/24/20 13:50 Intake & Output 06/23/20 06/24/20 06/25/20 06:59 06:59 06:59 Intake Total 974 Output Total 800 2200 Balance -800 -1226 Weight 78.2 kg 76.4 kg General appearance: PRESENT: no acute distress, cooperative Head exam: PRESENT: atraumatic, normocephalic Eye exam: PRESENT: EOMI, PERRLA Mouth exam: PRESENT: moist Neck exam: PRESENT: full ROM Respiratory exam: PRESENT: rales, symmetrical, unlabored. ABSENT: tachypnea Cardiovascular exam: PRESENT: RRR, +S1, +S2 Pulses: PRESENT: +2 pedal pulses bilateral GI/Abdominal exam: PRESENT: normal bowel sounds, soft. ABSENT: rebound, tenderness Extremities exam: PRESENT: full ROM Musculoskeletal exam: PRESENT: full ROM Neurological exam: PRESENT: alert, awake, oriented to person, oriented to place, oriented to time, oriented to situation Psychiatric exam: PRESENT: normal mood Skin exam: PRESENT: normal color Results Laboratory Results: WBC 3.7 10^3/uL (4.0-10.5) L 06/24/20 06:05 RBC 2.82 10^6/uL (3.72-5.28) L 06/24/20 06:05 Hgb 7.7 g/dL (12.0-15.5) L 06/24/20 06:05 Hct 23.1 % (36.0-47.0) L 06/24/20 06:05 MCV 82 fl (80-97) 06/24/20 06:05 MCH 27.4 pg (27.0-33.4) 06/24/20 06:05 MCHC 33.5 g/dL (32.0-36.0) 06/24/20 06:05 RDW 15.1 % (11.5-14.0) H 06/24/20 06:05 Plt Count 70 10^3/uL (150-450) L 06/24/20 06:05 Lymph % (Auto) 11.8 % (13-45) L 06/24/20 06:05 [place] % (Auto) 7.4 % (3-13) 06/24/20 06:05 Eos % (Auto) 0.1 % (0-6) 06/24/20 06:05 Baso % (Auto) 0.3 % (0-2) 06/24/20 06:05 Absolute Neuts (auto) 3.0 10^3/uL (1.7-8.2) 06/24/20 06:05 Absolute Lymphs (auto) 0.4 10^3/uL (0.5-4.7) L 06/24/20 06:05 Absolute Monos (auto) 0.3 10^3/uL (0.1-1.4) 06/24/20 06:05 Absolute Eos (auto) 0.0 10^3/uL (0.0-0.6) 06/24/20 06:05 Absolute Basos (auto) 0.0 10^3/uL (0.0-0.2) 06/24/20 06:05 Seg Neutrophils % 80.4 % (42-78) H 06/24/20 06:05 Sodium 140.9 mmol/L (137-145) 06/24/20 06:05 Potassium 5.0 mmol/L (3.6-5.0) 06/24/20 06:05 Chloride 106 mmol/L (98-107) 06/24/20 06:05 Carbon Dioxide 26 mmol/L (22-30) 06/24/20 06:05 Anion Gap 9 (5-19) 06/24/20 06:05 BUN 41 mg/dL (7-20) H 06/24/20 06:05 Creatinine 1.39 mg/dL (0.52-1.25) H 06/24/20 06:05 Est GFR ( Amer) 46 (>60) L 06/24/20 06:05 Est GFR (MDRD) Non-Af 38 (>60) L 06/24/20 06:05 Glucose 111 mg/dL (75-110) H 06/24/20 06:05 Calcium 8.9 mg/dL (8.4-10.2) 06/24/20 06:05 Magnesium 1.8 mg/dL (1.6-2.3) 06/24/20 06:05 Total Bilirubin 0.8 mg/dL (0.2-1.3) 06/22/20 17:45 Direct Bilirubin 0.4 mg/dL (0.0-0.4) 06/22/20 17:45 Neonat Total Bilirubin Not Reportable 06/22/20 17:45 Neonat Direct Bilirubin Not Reportable 06/22/20 17:45 Neonat Indirect Bili Not Reportable 06/22/20 17:45 AST 37 U/L (14-36) H 06/22/20 17:45 ALT 31 U/L (<35) 06/22/20 17:45 Alkaline Phosphatase 64 U/L (38-126) 06/22/20 17:45 Troponin I 0.053 ng/mL 06/23/20 16:01 NT-Pro-B Natriuret Pep 31213 pg/mL (<125) H 06/22/20 17:45 Total Protein 6.9 g/dL (6.3-8.2) 06/22/20 17:45 Albumin 3.7 g/dL (3.5-5.0) 06/22/20 17:45 Triglycerides 157 mg/dL (<150) H 06/24/20 06:05 Cholesterol 165.04 mg/dL (0-200) 06/24/20 06:05 LDL Cholesterol Direct 70 mg/dL (<100) 06/24/20 06:05 VLDL Cholesterol 31.4 mg/dL (10-31) H 06/24/20 06:05 HDL Cholesterol 44 mg/dL (>40) 06/24/20 06:05 TSH 0.73 uIU/mL (0.47-4.68) 06/24/20 06:05 Urine Color YELLOW 06/24/20 05:38 Urine Appearance CLEAR 06/24/20 05:38 Urine pH 5.0 (5.0-9.0) 06/24/20 05:38 Ur Specific [place] 1.008 06/24/20 05:38 Urine Protein 30 mg/dL (NEGATIVE) H 06/24/20 05:38 Urine Glucose (UA) NEGATIVE mg/dL (NEGATIVE) 06/24/20 05:38 Urine Ketones NEGATIVE mg/dL (NEGATIVE) 06/24/20 05:38 Urine Blood LARGE (NEGATIVE) H 06/24/20 05:38 Urine Nitrite NEGATIVE (NEGATIVE) 06/24/20 05:38 Urine Bilirubin NEGATIVE (NEGATIVE) 06/24/20 05:38 Urine Urobilinogen NEGATIVE mg/dL (<2.0) 06/24/20 05:38 Ur Leukocyte Esterase NEGATIVE (NEGATIVE) 06/24/20 05:38 Urine WBC (Auto) 3 /HPF 06/24/20 05:38 Urine RBC (Auto) 29 /HPF 06/24/20 05:38 U Hyaline Cast (Auto) 14 /LPF 06/24/20 05:38 Squamous Epi Cells Auto <1 /HPF 06/24/20 05:38 Urine Mucus (Auto) RARE /LPF 06/24/20 05:38 Urine Ascorbic Acid NEGATIVE (NEGATIVE) 06/24/20 05:38 06/22/20 06/22/20 06/22/20 17:45 17:45 22:11 Troponin I 0.049 0.060 NT-Pro-B Natriuret Pep [id number] H 06/23/20 06/23/20 09:05 16:01 Troponin I 0.064 0.053 NT-Pro-B Natriuret Pep Impressions: Chest X-Ray 06/22/20 17:34 IMPRESSION: Diffusely increased interstitial prominence bilaterally. Cardiomegaly. No consolidation or significant pleural effusion. Chest CT 06/23/20 01:43 IMPRESSION: There is interlobular septal thickening and groundglass change present. This may reflect mild edema. The main pulmonary artery is enlarged, which can be seen with pulmonary hypertension. The ascending aorta is enlarged which can be followed within one year. Plan Health Concerns: Congestive Heart Failure You have been diagnosed as having congestive heart failure (CHF). CHF occurs when the heart is unable to pump blood efficiently, leading to fluid buildup in the veins and lungs. Typical symptoms are swelling of the legs, shortness of breath on minor exertion, and fatigue. CHF is treated with salt restriction, medicine to eliminate excess water and salt from the body, and medication to help the heart contract more efficiently. Eliminate added salt and salty foods in your diet. Decrease your activity until excess fluid has been eliminated. It will also be helpful to raise the head of your bed so you can sleep more easily. Keep a daily record of your weight. This will help your physician monitor your progress. Once extra water has been eliminated, light aerobic exercise da fam -- such as walking -- will be helpful (unless your physician has told you to restrict activity for other reasons). Be sure to follow up with the physician as instructed. Contact the doctor at once if you worsen in any way. Plan of Treatment: - start beta zhen, AVE, aspirin and statin - follow up with Dr. Magdiel Wren for a cardiac cath Time Spent: Greater than 30 Minutes Stroke Is this a Stroke Patient?: No Acute Heart Failure Is this a Heart Failure Patient?: No
== END 2020-06-24 15:16 | disposition home or self-care (01) | DRG 280 ==
LOC: ER 15:52 → EH 06-23 03:09 → 3W 06-23 07:11
PROVIDERS: ADMIT Emergency Medicine; ATTEND Internal Medicine
PROC: 5A09357 Assistance with Respiratory Ventilation, Less than 24 Consecutive Hours, Continuous Positive Airway Pressure (ICD-10-PCS; principal; 2020-06-23)
DX: I16.9 Hypertensive crisis, unspecified (principal); I21.4 Non-ST elevation (NSTEMI) myocardial infarction; I50.21 Acute systolic (congestive) heart failure; M32.9 Systemic lupus erythematosus, unspecified; I11.0 Hypertensive heart disease with heart failure; M19.90 Unspecified osteoarthritis, unspecified site; E03.9 Hypothyroidism, unspecified; K21.9 Gastro-esophageal reflux disease without esophagitis; D64.9 Anemia, unspecified; H26.9 Unspecified cataract; Z79.82 Long term (current) use of aspirin; Z79.52 Long term (current) use of systemic steroids; Z79.899 Other long term (current) drug therapy; Z85.828 Personal history of other malignant neoplasm of skin; Z87.891 Personal history of nicotine dependence; Z82.49 Family history of ischemic heart disease and other diseases of the circulatory system; Z91.041 Radiographic dye allergy status
CPT/HCPCS: 36415; 71046; 71250; 80048; 80053; 80061; 81001; 83735; 83880; 84443; 84484; 85025; 93005; 93010; 93306; 94660; 96374; 96375; 99285; J1644; J1650; J1940; J2270; J3490; J7512

== ENCOUNTER 2020-07-27 10:00 | Inpatient (IN) | payer MEDICARE ==
--- NOTE | 2020-07-27 10:27 | ER Document Report ---
ED Medical Screen (RME) - General Chief Complaint: Abnormal Lab Results Stated Complaint: ABNORMAL LABS Time Seen by Provider: 07/27/20 10:23 Primary Care Provider: AMEE GRIMM FNP-C [Primary Care Provider] - Follow up as needed Mode of Arrival: Ambulatory Information source: Patient Notes: 64-year-old female patient presented to the emergency department concern for abnormal labs. Patient had labs drawn yesterday at Dr. Magdiel Vickers' office, cardiology. Patient reports they called her this morning and told her that her platelets were abnormally low. Patient patient does report having history of this before. She states she is feeling very rundown, has lack of appetite and nausea. Patient appears well, nontoxic, respirations equal and unlabored. No acute distress noted. I have greeted and performed a rapid initial assessment of this patient. A comprehensive ED assessment and evaluation of the patient, analysis of test results and completion of the medical decision making process will be conducted by additional ED providers. I have specifically instructed the patient or family members with the patient to immediately return to any nursing staff should anything change in the patient's condition or with their chief complaint. TRAVEL OUTSIDE OF THE [place] IN LAST 30 DAYS: No - Related Data Allergies/Adverse Reactions: Iodinated Contrast Media Allergy (Verified 07/27/20 10:21) Generalized rash Past Medical History - Past Medical History Cardiac Medical History: Reports: Hx Hypertension Denies: Hx Coronary Artery Disease, Hx DVT, Hx Heart Attack, Hx Hypercholesterolemia, Hx Pulmonary Embolism Pulmonary Medical History: Denies: Hx Asthma, Hx COPD Neurological Medical History: Denies: Hx Cerebrovascular Accident, Hx Seizures Endocrine Medical History: Reports: Hx Hypothyroidism. Denies: Hx Diabetes Mellitus Type 1, Hx Diabetes Mellitus Type 2, Hx Hyperthyroidism Malignancy Medical History: Reports: Hx Skin Cancer GI Medical History: Reports: Hx Gastroesophageal Reflux Disease. Denies: Hx Cirrhosis, Hx Hepatitis, Hx Hiatal Hernia, Hx Ulcer Musculoskeltal Medical History: Reports Hx Arthritis, Denies Hx Fibromyalgia Skin Medical History: Denies Hx Eczema, Denies Hx Psoriasis Psychiatric Medical History: Denies: Hx Depression Infectious Medical History: Denies: Hx Hepatitis Past Surgical History: Reports: Hx Hysterectomy, Hx Whipple, Other - skin cancer removal. Denies: Hx Mastectomy, Hx Open Heart Surgery, Hx Pacemaker - Immunizations Hx Diphtheria, Pertussis, Tetanus Vaccination: No Physical Exam - Vital signs Vitals: Temp Pulse Resp BP Pulse Ox 98.2 F 76 18 151/72 H 100 07/27/20 10:05 07/27/20 10:05 07/27/20 10:05 07/27/20 10:05 07/27/20 10:05 Course - Vital Signs Vital signs: Temp Pulse Resp BP Pulse Ox 98.2 F 76 18 151/72 H 100 07/27/20 10:05 07/27/20 10:05 07/27/20 10:05 07/27/20 10:05 07/27/20 10:05 Doctor's Discharge - Discharge Referrals: AMEE GRIMM FNP-C [Primary Care Provider] - Follow up as needed
[2020-07-27 11:36] LABS: APPEARANCE,URINE SLIGHTLY-CLOUDY; BILIRUBIN,URINE NEGATIVE (NEGATIVE); COLOR,URINE YELLOW; GLUCOSE, URINE NEGATIVE (NEGATIVE); KETONES,URINE NEGATIVE (NEGATIVE); PROTEIN,URINE 100 mg/dL (NEGATIVE); URINE SPECIFIC GRAVITY 1.012; UROBILINOGEN,URINE NEGATIVE mg/dL (<2.0)
[2020-07-27 11:41] LABS: INTERNATIONAL RATION (INR) 0.97; PROTHROMBIN TIME 13.1 SEC (11.4-15.4)
[2020-07-27 11:42] LABS: PARTIAL THROMBOPLASTIN TIME 26.3 SEC (23.5-35.8)
[2020-07-27 11:48] LABS: ALBUMIN 3.4 g/dL (3.5-5.0); ALKALINE PHOSPHATASE 67 U/L (38-126); ANION GAP 11 (5-19); ASPARTATE AMINO TRANSFERASE 34 U/L (14-36); BILIRUBIN,DIRECT 0.1 mg/dL (0.0-0.4); BILIRUBIN,TOTAL 0.6 mg/dL (0.2-1.3); BLOOD UREA NITROGEN 48 mg/dL (7-20); CALCIUM 9.1 mg/dL (8.4-10.2); CARBON DIOXIDE 21 mmol/L (22-30); CHLORIDE 109 mmol/L (98-107); GLUCOSE 98 mg/dL (75-110); POTASSIUM 4.9 mmol/L (3.6-5.0); TOTAL PROTEIN 6.6 g/dL (6.3-8.2)
[2020-07-27 12:16] LABS: ABSOLUTE LYMPHOCYTES (AUTO) 0.3 10^3/uL (0.5-4.7); ABSOLUTE MONOCYTES (AUTO) 0.2 10^3/uL (0.1-1.4); ABSOLUTE NEUT (AUTO) 1.7 10^3/uL (1.7-8.2); BASOPHILS % (AUTO) 0.4 % (0-2); EOSINOPHILS % (AUTO) 0.2 % (0-6); MEAN CORPUSCULAR HEMOGLOBIN 27.5 pg (27.0-33.4); MEAN CORPUSCULAR HGB CONC 33.8 g/dL (32.0-36.0); MEAN CORPUSCULAR VOLUME 81 fl (80-97); MONOCYTES % (AUTO) 10.4 % (3-13); RED BLOOD COUNT 2.22 10^6/uL (3.72-5.28); RED CELL DISTRIBUTION WIDTH 15.8 % (11.5-14.0); TOTAL CELLS COUNTED % (AUTO) 100 %; WHITE BLOOD COUNT 2.3 10^3/uL (4.0-10.5)
[2020-07-27 12:40] LABS: HEMOGLOBIN 6.1 g/dL (12.0-15.5)
[2020-07-27] MEDS ORDERED: NORMAL SALINE 250 ML IV PRN ×2 (13:22)
--- NOTE | 2020-07-27 13:30 | ER Document Report ---
ED General - General Chief Complaint: Abnormal Lab Results Stated Complaint: ABNORMAL LABS Time Seen by Provider: 07/27/20 10:23 Primary Care Provider: AMEE GRIMM FNP-C [Primary Care Provider] - Follow up as needed Mode of Arrival: Ambulatory Information source: Patient TRAVEL OUTSIDE OF THE [place] IN LAST 30 DAYS: No - HPI Notes: Patient presents with abnormal laboratory values from the cardiology office. Patient has been having some cardiac issues and was being worked up for heart catheterization by the [facility] cooper. In the process he obtained some laboratory values and saw that her hemoglobin and platelets were very low and had her sent here to the emergency department for admission and further treatment. Patient states she has been having some nosebleeds but otherwise no significant bleeding from the urine stool or gums. She has been having some weakness and fatigue. States she has lupus and is chronically on Plaquenil. - Related Data Allergies/Adverse Reactions: Iodinated Contrast Media Allergy (Verified 07/27/20 10:21) Generalized rash Past Medical History - General Information source: Patient - Social History Smoking Status: Former Smoker Chew tobacco use (# tins/day): No Frequency of alcohol use: None Drug Abuse: None Family History: Hypertension - Past Medical History Cardiac Medical History: Reports: Hx Hypertension Denies: Hx Coronary Artery Disease, Hx DVT, Hx Heart Attack, Hx Hypercholesterolemia, Hx Pulmonary Embolism Pulmonary Medical History: Denies: Hx Asthma, Hx COPD Neurological Medical History: Denies: Hx Cerebrovascular Accident, Hx Seizures Endocrine Medical History: Reports: Hx Hypothyroidism. Denies: Hx Diabetes Mellitus Type 1, Hx Diabetes Mellitus Type 2, Hx Hyperthyroidism Malignancy Medical History: Reports: Hx Skin Cancer GI Medical History: Reports: Hx Gastroesophageal Reflux Disease. Denies: Hx Cirrhosis, Hx Hepatitis, Hx Hiatal Hernia, Hx Ulcer Musculoskeletal Medical History: Reports Hx Arthritis, Denies Hx Fibromyalgia Skin Medical History: Denies Hx Eczema, Denies Hx Psoriasis Psychiatric Medical History: Denies: Hx Depression Infectious Medical History: Denies: Hx Hepatitis Past Surgical History: Reports: Hx Hysterectomy, Hx Whipple, Other - skin cancer removal. Denies: Hx Mastectomy, Hx Open Heart Surgery, Hx Pacemaker - Immunizations Hx Diphtheria, Pertussis, Tetanus Vaccination: No Review of Systems - Review of Systems Constitutional: Malaise, Weakness. denies: Chills, Fever Cardiovascular: denies: Chest pain, Palpitations Respiratory: denies: Cough, Short of breath -: Yes All other systems reviewed and negative Physical Exam - Vital signs Vitals: Temp Pulse Resp BP Pulse Ox 98.2 F 76 18 151/72 H 100 07/27/20 10:05 07/27/20 10:05 07/27/20 10:05 07/27/20 10:05 07/27/20 10:05 Interpretation: Normal - General General appearance: Appears well, Alert - HEENT Head: Normocephalic, Atraumatic Eyes: Normal Pupils: PERRL - Respiratory Respiratory status: No respiratory distress Chest status: Nontender Breath sounds: Normal Chest palpation: Normal - Cardiovascular Rhythm: Regular Heart sounds: Normal auscultation Murmur: No - Abdominal Inspection: Normal Distension: No distension Bowel sounds: Normal Tenderness: Nontender Organomegaly: No organomegaly - Back Back: Normal, Nontender - Extremities General upper extremity: Normal inspection, Nontender, Normal color, Normal ROM, Normal temperature General lower extremity: Normal inspection, Nontender, Normal color, Normal ROM, Normal temperature, Normal weight bearing. No: Lyle's sign - Neurological Neuro grossly intact: Yes Cognition: Normal Orientation: AAOx4 Benjamin Coma Scale Eye Opening: Spontaneous Benjamin Coma Scale Verbal: Oriented [place] Coma Scale Motor: Obeys Commands Benjamin Coma Scale Total: 15 Speech: Normal Motor strength normal: LUE, RUE, LLE, RLE Sensory: Normal - Psychological Associated symptoms: Normal affect, Normal mood - Skin Skin Temperature: Warm Skin Moisture: Dry Skin Color: Pale Course - Re-evaluation Re-evalutation: 07/27/20 13:33 Patient presents with severe anemia and severe thrombocytopenia. I have discussed the case with oncology. Have also discussed the case with the hospitalist. At this time we are currently waiting on the morphology to determine our final treatment plan. In the meantime 2 units of blood have been ordered. In discussion with oncology they have requested that we not transfuse platelets until further evaluation can be done. - Vital Signs Vital signs: Temp Pulse Resp BP Pulse Ox 98.2 F 76 18 151/72 H 100 07/27/20 10:05 07/27/20 10:05 07/27/20 10:05 07/27/20 10:05 07/27/20 10:05 - Laboratory Result Diagrams: 07/27/20 11:55 07/27/20 11:05 Laboratory results interpreted by me: 07/27/20 07/27/20 07/27/20 11:05 11:05 11:05 WBC RBC Hgb Hct RDW Plt Count Absolute Lymphs (auto) Chloride 109 H Carbon Dioxide 21 L BUN 48 H Creatinine 1.37 H Est GFR ( Amer) 47 L Est GFR (MDRD) Non-Af 39 L Albumin 3.4 L Urine Protein 100 H Urine Blood LARGE H Crossmatch See Detail 07/27/20 11:55 WBC 2.3 L RBC 2.22 L Hgb 6.1 L Hct 18.0 L RDW 15.8 H Plt Count 7 L* Absolute Lymphs (auto) 0.3 L Chloride Carbon Dioxide BUN Creatinine Est GFR ( Amer) Est GFR (MDRD) Non-Af Albumin Urine Protein Urine Blood Crossmatch Critical Care Note - Critical Care Note Total time excluding time spent on procedures (mins): 50 Comments: Approximately 50 minutes of critical care time were spent on this patient with lupus, severe anemia, and severe thrombocytopenia. Discharge - Discharge Clinical Impression: Thrombocytopenia, Systemic lupus erythematosus arthritis Anemia Qualifiers: Anemia type: unspecified type Qualified Code(s): D64.9 - Anemia, unspecified Condition: Critical Disposition: ADMITTED INPATIENT Admitting Provider: Jessica (Hospitalist) Unit Admitted: Medical Floor Referrals: AMEE GRIMM FNP-C [Primary Care Provider] - Follow up as needed
[2020-07-27 13:37] LABS: ANISOCYTOSIS SLIGHT; PLATELET COMMENT DECREASED
[2020-07-27 13:38] LABS: OVALOCYTES 2+; POIKILOCYTOSIS 2+; TEAR DROP CELLS 2+
[2020-07-27 13:43] LABS: TOXIC GRANULATION SLIGHT
[2020-07-27] MEDS ORDERED: ZOLPIDEM TARTRATE 5 MG TABLET PO PRN (14:01)
[2020-07-27] MEDS ORDERED: ONDANSETRON HCL INJ/PF 4 MG/2 ML SDV IV PRN (14:01)
[2020-07-27] MEDS ORDERED: IPRATROPIUM/ALBUTEROL 0.5-2.5 MG/3 ML AMPUL NEB PRN (14:01)
[2020-07-27] MEDS ORDERED: ACETAMINOPHEN 325 MG TABLET PO PRN (14:01)
[2020-07-27] MEDS ORDERED: OXYCODONE-ACETAMINOPHEN 5-325 MG TABLET PO PRN (14:01)
[2020-07-27 14:56] LABS: ANION GAP 11 (5-19); BLOOD UREA NITROGEN 49 mg/dL (7-20); CALCIUM 8.8 mg/dL (8.4-10.2); CARBON DIOXIDE 18 mmol/L (22-30); CHLORIDE 110 mmol/L (98-107); GLUCOSE 83 mg/dL (75-110); POTASSIUM 4.6 mmol/L (3.6-5.0)
--- NOTE | 2020-07-27 15:10 | PDOC H&P ---
History of Present Illness Admission Date/PCP: 07/27/20 13:45 GLORIA CHAVEZ Patient complains of: Patient presents emergency room with evaluation after being sent from the cardiology office. She was found to have severe thrombocytopenia as well as anemia during routine blood work for a preop assessment for cardiac catheterization patient complains of epistaxis last episode this morning and she said she had noticed some bleeding from her skin History of Present Illness: DANDRE SANTOS is a 64 year old female Patient presents emergency room with evaluation after being sent from the cardiology office. She was found to have severe thrombocytopenia as well as anemia during routine blood work for a preop assessment for cardiac catheterization patient complains of epistaxis last episode this morning and she said she had noticed some bleeding from her skin but otherwise denies any vagina bleeding, hematuria or bloody stool. Of note she does have hematuria on her urinalysis. Patient was in the hospital about 3 to 4 weeks ago. She had presen abelino for with chest pain. In fact she was scheduled for cardiac cath from the visit today. She was on prednisone, azathioprine as well as Plaquenil and it appears she was taken off the prednisone and azathioprine at that visit. She was supposed to go back and see her heel cementer. She does have a history of SLE since 2004. She had been on the aforementioned medications since 2004 and on Plaquenil for about 4 years. She had been taking Plaquenil Past Medical History Cardiac Medical History: Reports: Hypertension Denies: Coronary Artery Disease, DVT, Myocardial Infarction, Hyperlipidema, Pulmonary Embolism Pulmonary Medical History: Denies: Asthma, Chronic Obstructive Pulmonary Disease (COPD) Neurological Medical History: Denies: Seizures Endocrine Medical History: Reports: Hypothyroidism Denies: Diabetes Mellitus Type 1, Diabetes Mellitus Type 2, Hyperthyroidism Malignancy Medical History: Reports: Skin Cancer GI Medical History: Reports: Gastroesophageal Reflux Disease Denies: Cirrhosis, Hepatitis, Hiatal Hernia Musculoskeltal Medical History: Reports: Arthritis Denies: Fibromyalgia Skin Medical History: Denies: Eczema, Psoriasis Psychiatric Medical History: Denies: Depression Hematology: Reports: Anemia - Chronic Denies: Sickle Cell Disease, Bleeding Tendencies Past Surgical History Past Surgical History: Reports: Hysterectomy, Other - skin cancer removal Denies: Amputation, Mastectomy, Pacemaker Social History Information Source: Patient Smoking Status: Former Smoker Electronic Cigarette use?: No Frequency of Alcohol Use: None Hx Recreational Drug Use: No Drugs: None Hx Prescription Drug Abuse: No - Advance Directive Resuscitation Status: Full Code Family History Family History: Reviewed & Not Pertinent, Hypertension Parental Family History Reviewed: No Children Family History Reviewed: Yes Sibling(s) Family History Reviewed.: Yes Medication/Allergy Home Medications: Hydroxychloroquine Sulfate [Plaquenil] 200 mg PO QAM 06/14/20 Levothyroxine Sodium [Synthroid] 200 mcg PO Q6AM 06/14/20 Multivitamin [Tab-A-Carter (Multiple Vitamin) Tablet] 1 tab PO DAILY 06/23/20 Aspirin [Ecotrin 81 mg EC Tablet] 81 mg PO DAILY 30 Days #30 tabec 06/24/20 Atorvastatin Calcium [Lipitor 40 mg Tablet] 40 mg PO QHS 30 Days #30 tablet 06/24/20 Furosemide [Lasix 20 mg Tablet] 20 mg PO QAM 14 Days #30 tablet 06/24/20 Metoprolol Tartrate [Lopressor 50 mg Tablet] 50 mg PO DAILY 30 Days #30 tablet 06/24/20 Sacubitril/Valsartan [Entresto 24 mg/26 mg Tablet] 1 tab PO BID 30 Days #60 tablet 06/24/20 Calcium Carbonate/Vitamin D3 [Calcium 600 + Vit D Caplet] 1 tab-cap PO DAILY 07/27/20 Allergies/Adverse Reactions: Iodinated Contrast Media Allergy (Verified 07/27/20 10:21) Generalized rash Review of Systems All systems: reviewed and no additional remarkable complaints except as stated Constitutional: ABSENT: chills, fever(s) Nose, Mouth, and Throat: ABSENT: headache(s) Cardiovascular: ABSENT: chest pain, dyspnea on exertion Respiratory: ABSENT: cough Gastrointestinal: ABSENT: abdominal pain Genitourinary: ABSENT: hematuria Musculoskeletal: ABSENT: back pain Neurological: ABSENT: abnormal speech, confusion, numbness, paresthesias, weakness Hematologic/Lymphatic: PRESENT: easy bleeding, easy bruising Physical Exam Vital Signs: Temp Pulse Resp BP Pulse Ox 98.2 F 76 18 151/72 H 100 07/27/20 10:05 07/27/20 10:05 07/27/20 10:05 07/27/20 10:05 07/27/20 10:05 Intake & Output 07/26/20 07/27/20 07/28/20 06:59 06:59 06:59 Weight 71.1 kg General appearance: PRESENT: no acute distress, well-nourished Head exam: PRESENT: atraumatic, normocephalic Eye exam: PRESENT: conjunctiva pale, PERRLA. ABSENT: scleral icterus Ear exam: PRESENT: normal external ear exam Mouth exam: PRESENT: moist, tongue midline Neck exam: ABSENT: carotid bruit, JVD, lymphadenopathy, thyromegaly Respiratory exam: PRESENT: clear to auscultation beth. ABSENT: rales, rhonchi, wheezes Cardiovascular exam: PRESENT: RRR, +S1, +S2. ABSENT: diastolic murmur, rubs, systolic murmur Pulses: PRESENT: normal dorsalis pedis pul Vascular exam: PRESENT: normal capillary refill GI/Abdominal exam: PRESENT: normal bowel sounds, soft. ABSENT: distended, guarding, mass, organolmegaly, rebound, tenderness Rectal exam: PRESENT: deferred Extremities exam: PRESENT: full ROM. ABSENT: calf tenderness, clubbing, pedal edema Musculoskeletal exam: PRESENT: ambulatory Neurological exam: PRESENT: alert, awake, oriented to person, oriented to place, oriented to time, oriented to situation, CN II-XII grossly intact. ABSENT: motor sensory deficit Psychiatric exam: PRESENT: appropriate affect, normal mood. ABSENT: homicidal ideation, suicidal ideation Skin exam: PRESENT: dry, intact, rash, warm. ABSENT: cyanosis Results Laboratory Results: 07/27/20 11:55 07/27/20 07/27/20 07/27/20 11:05 11:05 11:05 WBC Cancelled RBC Cancelled Hgb Cancelled Hct Cancelled MCV Cancelled MCH Cancelled MCHC Cancelled RDW Cancelled Plt Count Cancelled Seg Neutrophils % Cancelled Sodium 140.6 Potassium 4.9 Chloride 109 H Carbon Dioxide 21 L Anion Gap 11 BUN 48 H Creatinine 1.37 H Est GFR ( Amer) 47 L Glucose 98 Calcium 9.1 Total Bilirubin 0.6 AST 34 Alkaline Phosphatase 67 Total Protein 6.6 Albumin 3.4 L Urine Color Urine Appearance Urine pH Ur Specific [place] Urine Protein Urine Glucose (UA) Urine Ketones Urine Blood Urine RBC (Auto) Blood Type O POSITIVE Antibody Screen NEGATIVE 07/27/20 07/27/20 11:05 11:55 WBC 2.3 L RBC 2.22 L Hgb 6.1 L Hct 18.0 L MCV 81 MCH 27.5 MCHC 33.8 RDW 15.8 H Plt Count 7 L* Seg Neutrophils % 74.0 Sodium Potassium Chloride Carbon Dioxide Anion Gap BUN Creatinine Est GFR ( Amer) Glucose Calcium Total Bilirubin AST Alkaline Phosphatase Total Protein Albumin Urine Color YELLOW Urine Appearance SLIGHTLY-CLOUDY Urine pH 5.0 Ur Specific [place] 1.012 Urine Protein 100 H Urine Glucose (UA) NEGATIVE Urine Ketones NEGATIVE Urine Blood LARGE H Urine RBC (Auto) 19 Blood Type Antibody Screen Assessment and Plan - Diagnosis (1) Pancytopenia Is this a current diagnosis for this admission?: Yes Plan: Patient came in with a platelet count of 7000 and she had been having some epistaxis as well as ecchymosis. I see very little to take care. Dr. Archuleta was consulted and I did speak with her and she suggested a blood transfusion only and to hold off on any platelets at this time. Pathologist did review her slide as recommended and no schistocytes were identified and as such patient to be started on prednisone for possible ITP. She suggest to monitor for any bleeding for now. (2) Systemic lupus erythematosus arthritis Is this a current diagnosis for this admission?: Yes Plan: Patient gives a history of SLE for about 15 years. She does follow with a heel cementer. She had been on azathioprine and prednisone which were discontinued during her last admission. This may have played a role in her current pancytopenia. We will continue to follow her values. (3) Chronic kidney disease (CKD) stage G3a/A1, moderately decreased glomerular filtration rate (GFR) between 45-59 mL/min/1.73 square meter and albuminuria creatinine ratio less than 30 mg/g Is this a current diagnosis for this admission?: Yes Plan: Function relatively stable - Plan Summary Summary: At this time as patient has no urgent cardiology needs will defer any cardiology consult if she remains stable she can follow-up as outpatient - Time Time Spent with patient: 35 or more minutes Medications reviewed and adjusted accordingly: Yes Anticipated Discharge Disposition: Home, Self Care Anticipated Discharge Timeframe: within 72 hours
--- NOTE | 2020-07-27 15:11 | PDOC CONSULTATION ---
Consultation Consult Date: 07/27/20 Attending physician:: MARINA HOFFMAN Provider Consulted: LETTY FORD Consult reason:: CHF History of Present Illness Admission Date/PCP: 07/27/20 13:45 GLORIA CHAVEZ Patient complains of: Epistaxis History of Present Illness: DANDRE SANTOS is a 64 year old female With the following active problems 1. Systemic lupus erythematosus 2. Dilated cardiomyopathy 3. Congestive heart failure Patient was admitted to the hospital in June with uncontrolled hypertension and heart failure symptoms. She was diuresed and improved significantly. However during the evaluation and prior to discharge she was noted to have severe LV dysfunction with ejection fraction estimated at approximately 25%. Based on that an outpatient referral to my office was made. I saw the patient in the office. At that time she was fairly well compensated. Based on her presentation with dilated cardiomyopathy and given risk factors for coronary artery disease including age we decided to proceed with cardiac catheterization. As part of the work-up preoperative lab tests were ordered which included a hemogram. This morning I was alerted to the fact that patient had panic labs including hemoglobin at 6.6 g/dL and platelet count less than 5K. Subsequently I called the patient at her residence. She appeared to be in her usual state of health but reported that she was having unprovoked epistaxis episodes as well as spontaneous skin bruising. No other symptoms. From a heart failure standpoint she was doing well. I also spoke with Dr. Miko Hart car salesperson who suggested this as a plan since the blood dyscrasia was quite profound. Subsequently patient presented to the hospital. Past Medical History Cardiac Medical History: Reports: Hypertension Denies: Coronary Artery Disease, DVT, Myocardial Infarction, Hyperlipidema, Pulmonary Embolism Pulmonary Medical History: Denies: Asthma, Chronic Obstructive Pulmonary Disease (COPD) Neurological Medical History: Denies: Seizures Endocrine Medical History: Reports: Hypothyroidism Denies: Diabetes Mellitus Type 1, Diabetes Mellitus Type 2, Hyperthyroidism Malignancy Medical History: Reports: Skin Cancer GI Medical History: Reports: Gastroesophageal Reflux Disease Denies: Cirrhosis, Hepatitis, Hiatal Hernia Musculoskeltal Medical History: Reports: Arthritis Denies: Fibromyalgia Skin Medical History: Denies: Eczema, Psoriasis Psychiatric Medical History: Denies: Depression Hematology: Reports: Anemia - Chronic Denies: Sickle Cell Disease, Bleeding Tendencies Past Surgical History Past Surgical History: Reports: Hysterectomy, Other - skin cancer removal Denies: Amputation, Mastectomy, Pacemaker Social History Smoking Status: Former Smoker Electronic Cigarette use?: No Frequency of Alcohol Use: None Hx Recreational Drug Use: No Drugs: None Hx Prescription Drug Abuse: No Family History Family History: Hypertension Parental Family History Reviewed: Yes - No familial illnesses Children Family History Reviewed: NA Sibling(s) Family History Reviewed.: NA Medication/Allergy Home Medications: Hydroxychloroquine Sulfate [Plaquenil] 200 mg PO QAM 06/14/20 Levothyroxine Sodium [Synthroid] 200 mcg PO Q6AM 06/14/20 Multivitamin [Tab-A-Carter (Multiple Vitamin) Tablet] 1 tab PO DAILY 06/23/20 Aspirin [Ecotrin 81 mg EC Tablet] 81 mg PO DAILY 30 Days #30 tabec 06/24/20 Atorvastatin Calcium [Lipitor 40 mg Tablet] 40 mg PO QHS 30 Days #30 tablet 06/24/20 Furosemide [Lasix 20 mg Tablet] 20 mg PO QAM 14 Days #30 tablet 06/24/20 Metoprolol Tartrate [Lopressor 50 mg Tablet] 50 mg PO DAILY 30 Days #30 tablet 06/24/20 Sacubitril/Valsartan [Entresto 24 mg/26 mg Tablet] 1 tab PO BID 30 Days #60 t ablet 06/24/20 Calcium Carbonate/Vitamin D3 [Calcium 600 + Vit D Caplet] 1 tab-cap PO DAILY 07/27/20 Allergies/Adverse Reactions: Iodinated Contrast Media Allergy (Verified 07/27/20 10:21) Generalized rash Review of Systems Constitutional: PRESENT: as per HPI Eyes: ABSENT: as per HPI, visual disturbances, other Nose, Mouth, and Throat: PRESENT: other - Epistaxis Cardiovascular: PRESENT: dyspnea on exertion, orthropnea Neurological: ABSENT: as per HPI, abnormal gait, abnormal movements, abnormal speech, confusion, convulsions, dizziness, focal weakness, frequent falls, lack of coordination, memory loss, numbness, paresthesias, restless legs, syncope, tingling, tremor(s), vertigo, weakness, other Hematologic/Lymphatic: PRESENT: easy bleeding, easy bruising Physical Exam Vital Signs: Temp Pulse Resp BP Pulse Ox 98.2 F 76 18 151/72 H 100 07/27/20 10:05 07/27/20 10:05 07/27/20 10:05 07/27/20 10:05 07/27/20 10:05 Intake & Output 07/26/20 07/27/20 07/28/20 06:59 06:59 06:59 Weight 71.1 kg General appearance: PRESENT: cooperative, well-developed, well-nourished Head exam: PRESENT: atraumatic, normocephalic Eye exam: PRESENT: conjunctiva pale Mouth exam: PRESENT: moist Respiratory exam: PRESENT: clear to auscultation beth, symmetrical, unlabored Cardiovascular exam: PRESENT: RRR, +S1, +S2 Pulses: PRESENT: normal radial pulses GI/Abdominal exam: PRESENT: soft Rectal exam: PRESENT: deferred Musculoskeletal exam: PRESENT: normal inspection Neurological exam: PRESENT: alert, awake, oriented to person, oriented to place, oriented to time Psychiatric exam: PRESENT: appropriate affect Skin exam: PRESENT: dry, intact Results Laboratory Results: 07/27/20 11:55 07/27/20 13:05 07/27/20 07/27/20 07/27/20 11:05 11:05 11:05 WBC Cancelled RBC Cancelled Hgb Cancelled Hct Cancelled MCV Cancelled MCH Cancelled MCHC Cancelled RDW Cancelled Plt Count Cancelled Seg Neutrophils % Cancelled Sodium 140.6 Potassium 4.9 Chloride 109 H Carbon Dioxide 21 L Anion Gap 11 BUN 48 H Creatinine 1.37 H Est GFR ( Amer) 47 L Glucose 98 Calcium 9.1 Total Bilirubin 0.6 AST 34 Alkaline Phosphatase 67 Total Protein 6.6 Albumin 3.4 L Urine Color Urine Appearance Urine pH Ur Specific [place] Urine Protein Urine Glucose (UA) Urine Ketones Urine Blood Urine RBC (Auto) Blood Type O POSITIVE Antibody Screen NEGATIVE 07/27/20 07/27/20 07/27/20 11:05 11:55 13:05 WBC 2.3 L RBC 2.22 L Hgb 6.1 L Hct 18.0 L MCV 81 MCH 27.5 MCHC 33.8 RDW 15.8 H Plt Count 7 L* Seg Neutrophils % 74.0 Sodium 138.6 Potassium 4.6 Chloride 110 H Carbon Dioxide 18 L Anion Gap 11 BUN 49 H Creatinine 1.28 H Est GFR ( Amer) 51 L Glucose 83 Calcium 8.8 Total Bilirubin AST Alkaline Phosphatase Total Protein Albumin Urine Color YELLOW Urine Appearance SLIGHTLY-CLOUDY Urine pH 5.0 Ur Specific [place] 1.012 Urine Protein 100 H Urine Glucose (UA) NEGATIVE Urine Ketones NEGATIVE Urine Blood LARGE H Urine RBC (Auto) 19 Blood Type Antibody Screen Assessment & Plan - Notes Notes: 1. Dilated cardiomyopathy Patient appears to be euvolemic on exam Given presentation with pancytopenia she is not a candidate for invasive work- up. Cardiac catheterization will have to be put on hold at the moment Continue medications for dilated cardiomyopathy. Continue sacubitril/valsartan 24/26 mg twice daily Continue metoprolol tartrate 50 mg twice daily 2. Congestive heart failure Patient appears to be euvolemic I believe there are plans for blood transfusion Volume status is to be closely monitored. She may require furosemide injections after transfusion 3. Pancytopenia Hematology input has been requested
[2020-07-27] MEDS ORDERED: PREDNISONE 20 MG TABLET PO SCH (18:00)
[2020-07-27] MEDS: SACUBITRIL/VALSARTAN 24 MG/26 MG TABLET PO SCH (18:22)
[2020-07-27] MEDS: ATORVASTATIN CALCIUM 40 MG TABLET PO SCH (21:50)
[2020-07-28 05:28] LABS: HEMATOCRIT 23.3 % (36.0-47.0); MEAN CORPUSCULAR HEMOGLOBIN 27.6 pg (27.0-33.4); MEAN CORPUSCULAR HGB CONC 34.1 g/dL (32.0-36.0); MEAN CORPUSCULAR VOLUME 81 fl (80-97); RED BLOOD COUNT 2.87 10^6/uL (3.72-5.28); RED CELL DISTRIBUTION WIDTH 15.4 % (11.5-14.0)
[2020-07-28] MEDS ORDERED: LEVOTHYROXINE SODIUM 200 MCG PO SCH (06:00)
[2020-07-28] MEDS: PANTOPRAZOLE SODIUM 40 MG TABLET.DR PO SCH (06:05)
[2020-07-28] MEDS: LEVOTHYROXINE SODIUM 0.1 MG TABLET PO SCH (06:05)
[2020-07-28 06:20] LABS: HEMOGLOBIN 7.9 g/dL (12.0-15.5); WHITE BLOOD COUNT 1.9 10^3/uL (4.0-10.5)
[2020-07-28 06:21] LABS: PLATELET COUNT 5 10^3/uL (150-450)
[2020-07-28 06:25] LABS: ABSOLUTE LYMPHOCYTES# (MANUAL) 0.2 10^3/uL (0.5-4.7); ABSOLUTE MONOCYTES # (MANUAL) 0.2 10^3/uL (0.1-1.4); BAND NEUTROPHILS % (MANUAL) 2 % (3-5); BASOPHILS % (MANUAL) 0 % (0-2); EOSINOPHILS % (MANUAL) 0 % (0-6); LYMPHOCYTES % (MANUAL) 12 % (13-45); MONOCYTES % (MANUAL) 10 % (3-13); SEGMENTED NEUTROPHILS % (MAN) 76 % (42-78); TOTAL CELLS COUNTED 50
[2020-07-28 06:26] LABS: ANISOCYTOSIS SLIGHT; OVALOCYTES 1+; PLATELET COMMENT DECREASED; TEAR DROP CELLS SLIGHT
[2020-07-28 07:08] LABS: PLATELET COUNT 7 10^3/uL (150-450)
[2020-07-28] MEDS: PREDNISONE 20 MG TABLET PO SCH ×2 (10:27→17:54)
[2020-07-28] MEDS: MULTIVITAMIN TABLET PO SCH (10:28)
[2020-07-28] MEDS: CALCIUM CARBONATE 600 MG/VITAMIN D3 400 UNIT TABLET PO SCH (10:28)
[2020-07-28] MEDS: METOPROLOL TARTRATE 50 MG TABLET PO SCH (10:28)
[2020-07-28] MEDS: SACUBITRIL/VALSARTAN 24 MG/26 MG TABLET PO SCH ×2 (10:28→17:54)
[2020-07-28] MEDS: DOCUSATE SODIUM 100 MG CAPSULE PO SCH (10:28)
--- NOTE | 2020-07-28 10:48 | PDOC CONSULTATION ---
Consultation Consult Date: 07/28/20 Provider Consulted: DANISH SMITH Consult reason:: Hematology/Oncology consultation was requested for patient with pancytopenia. History of Present Illness Admission Date/PCP: 07/27/20 13:45 GLORIA CHAVEZ History of Present Illness: DANDRE SANTOS is a 64 year old female who has been treated for lupus for quite some time. She had been on plaquinil, prednisone and azothiaprine for the lupus. Three weeks ago, her cataract surgery was cancelled due to uncontrolled HTN and new CHF. Cardiology work-up has been in process and she was scheduled for a cardiac cath in [place] but pre-op blood work showed low PLT count and patient was instructed to come to the hospital. The prednisone and azothiaprine were stopped last week in preparation for the heart cath (had been taking these since 2004). Over the last 2 weeks, she reports nose bleeds every day, all day, but not enough to be concerning. She also has noticed increased bruising the day before her admission. She has been weak, dizzy, and had increased dyapnea on Exertion. However, she thought this was due to her heart. Today, she denies any recent infections. No prior ITP, but she did require PLT transfusion in the past prior to a surgery. She does not remember seeing hemato logist in the past. Past Medical History Cardiac Medical History: Reports: Hypertension Denies: Coronary Artery Disease, DVT, Myocardial Infarction, Hyperlipidema, Pulmonary Embolism Pulmonary Medical History: Denies: Asthma, Chronic Obstructive Pulmonary Disease (COPD) Neurological Medical History: Denies: Seizures Endocrine Medical History: Reports: Hypothyroidism Denies: Diabetes Mellitus Type 1, Diabetes Mellitus Type 2, Hyperthyroidism Malignancy Medical History: Reports: Skin Cancer GI Medical History: Reports: Gastroesophageal Reflux Disease Denies: Cirrhosis, Hepatitis, Hiatal Hernia Musculoskeltal Medical History: Reports: Arthritis Denies: Fibromyalgia Skin Medical History: Denies: Eczema, Psoriasis Psychiatric Medical History: Denies: Depression Hematology: Reports: Anemia - Chronic Denies: Sickle Cell Disease, Bleeding Tendencies Past Surgical History Past Surgical History: Reports: Hysterectomy, Other - skin cancer removal Denies: Amputation, Mastectomy, Pacemaker Social History Information Source: Patient, Parent Lives with: Spouse/Significant other Smoking Status: Former Smoker Electronic Cigarette use?: No Frequency of Alcohol Use: None Hx Recreational Drug Use: No Drugs: None Hx Prescription Drug Abuse: No Past Social History Note: Son lives in [place]. She quit smoking in 1998 - Advance Directive Resuscitation Status: Full Code Family History Family History: Hypertension Parental Family History Reviewed: Yes - Mom with CAD Children Family History Reviewed: Yes Sibling(s) Family History Reviewed.: Yes - Brother with CAD Medication/Allergy Home Medications: Hydroxychloroquine Sulfate [Plaquenil] 200 mg PO QAM 06/14/20 Levothyroxine Sodium [Synthroid] 200 mcg PO Q6AM 06/14/20 Multivitamin [Tab-A-Carter (Multiple Vitamin) Tablet] 1 tab PO DAILY 06/23/20 Aspirin [Ecotrin 81 mg EC Tablet] 81 mg PO DAILY 30 Days #30 tabec 06/24/20 Atorvastatin Calcium [Lipitor 40 mg Tablet] 40 mg PO QHS 30 Days #30 tablet 06/24/20 Furosemide [Lasix 20 mg Tablet] 20 mg PO QAM 14 Days #30 tablet 06/24/20 Metoprolol Tartrate [Lopressor 50 mg Tablet] 50 mg PO DAILY 30 Days #30 tablet 06/24/20 Sacubitril/Valsartan [Entresto 24 mg/26 mg Tablet] 1 tab PO BID 30 Days #60 tablet 06/24/20 Calcium Carbonate/Vitamin D3 [Calcium 600 + Vit D Caplet] 1 tab-cap PO DAILY 07/27/20 Allergies/Adverse Reactions: Iodinated Contrast Media Allergy (Verified 07/27/20 10:21) Generalized rash Review of Systems Constitutional: ABSENT: fever(s), headache(s) Eyes: ABSENT: visual disturbances Ears: ABSENT: hearing changes Nose, Mouth, and Throat: ABSENT: sore throat Cardiovascular: ABSENT: chest pain Respiratory: PRESENT: dyspnea Gastrointestinal: ABSENT: hematemesis, hematochezia Genitourinary: ABSENT: hematuria Integumentary: PRESENT: as per HPI Neurological: PRESENT: dizziness, weakness Hematologic/Lymphatic: PRESENT: as per HPI Physical Exam Vital Signs: Temp Pulse Resp BP Pulse Ox 98.1 F 78 16 147/80 H 98 07/28/20 07:46 07/28/20 09:11 07/28/20 09:11 07/28/20 07:46 07/28/20 09:11 Intake & Output 07/27/20 07/28/20 07/29/20 06:59 06:59 06:59 Intake Total 850 Balance 850 Weight 71 kg General appearance: PRESENT: no acute distress, well-developed, well-nourished Exam: 64 year old female. Eye exam: PRESENT: EOMI, PERRLA Mouth exam: PRESENT: moist, tongue midline Neck exam: ABSENT: lymphadenopathy, tenderness Respiratory exam: PRESENT: clear to auscultation beth, unlabored Cardiovascular exam: PRESENT: RRR GI/Abdominal exam: PRESENT: soft. ABSENT: tenderness Extremities exam: ABSENT: pedal edema Musculoskeletal exam: PRESENT: normal inspection Neurological exam: PRESENT: alert, awake Psychiatric exam: PRESENT: appropriate affect Skin exam: PRESENT: other - echymoses over arms. Petechei over legs. Results Laboratory Results: 07/28/20 04:36 07/27/20 13:05 07/27/20 07/27/20 07/27/20 11:05 11:05 11:05 WBC Cancelled RBC Cancelled Hgb Cancelled Hct Cancelled MCV Cancelled MCH Cancelled MCHC Cancelled RDW Cancelled Plt Count Cancelled Seg Neutrophils % Cancelled Sodium 140.6 Potassium 4.9 Chloride 109 H Carbon Dioxide 21 L Anion Gap 11 BUN 48 H Creatinine 1.37 H Est GFR ( Amer) 47 L Glucose 98 Calcium 9.1 Total Bilirubin 0.6 AST 34 Alkaline Phosphatase 67 Total Protein 6.6 Albumin 3.4 L Urine Color Urine Appearance Urine pH Ur Specific [place] Urine Protein Urine Glucose (UA) Urine Ketones Urine Blood Urine RBC (Auto) Blood Type O POSITIVE Antibody Screen NEGATIVE 07/27/20 07/27/20 07/27/20 11:05 11:55 13:05 WBC 2.3 L RBC 2.22 L Hgb 6.1 L Hct 18.0 L MCV 81 MCH 27.5 MCHC 33.8 RDW 15.8 H Plt Count 7 L* Seg Neutrophils % 74.0 Sodium 138.6 Potassium 4.6 Chloride 110 H Carbon Dioxide 18 L Anion Gap 11 BUN 49 H Creatinine 1.28 H Est GFR ( Amer) 51 L Glucose 83 Calcium 8.8 Total Bilirubin AST Alkaline Phosphatase Total Protein Albumin Urine Color YELLOW Urine Appearance SLIGHTLY-CLOUDY Urine pH 5.0 Ur Specific [place] 1.012 Urine Protein 100 H Urine Glucose (UA) NEGATIVE Urine Ketones NEGATIVE Urine Blood LARGE H Urine RBC (Auto) 19 Blood Type Antibody Screen 07/28/20 04:36 WBC 1.9 L RBC 2.87 L Hgb 7.9 L Hct 23.3 L MCV 81 MCH 27.6 MCHC 34.1 RDW 15.4 H Plt Count 5 L* Seg Neutrophils % Not Reportable Sodium Potassium Chloride Carbon Dioxide Anion Gap BUN Creatinine Est GFR ( Amer) Glucose Calcium Total Bilirubin AST Alkaline Phosphatase Total Protein Albumin Urine Color Urine Appearance Urine pH Ur Specific [place] Urine Protein Urine Glucose (UA) Urine Ketones Urine Blood Urine RBC (Auto) Blood Type Antibody Screen Assessment & Plan - Diagnosis (1) Pancytopenia Is this a current diagnosis for this admission?: Yes Plan: Multiple possible causes of this currently. However, most likely is due to Lupus and medications for Lupus. Would HOLD plaquinil. Prednisone has been started for possible ITP. There were no schistocytes on smear to suggest TTP. I will check B12, Folate, ferritin, and retic count. If no improvement in the next few days, then consider bone marrow biopsy. I do not believe this is HIT, but will HOLD all heparin products just in case. ANC remains >1. No evidence of fevers. (2) Systemic lupus erythematosus arthritis Is this a current diagnosis for this admission?: Yes Plan: I will try to reach her regular char puller to discuss her further.
--- NOTE | 2020-07-28 10:53 | PDOC PROGRESS REPORT ---
Subjective Date:: 07/28/20 Subjective:: Patient feels well. She denies any bleeding or epistaxis. Her platelet count i s noted to be down again to 5000. Reason For Visit: PANCYTOPENIA, SLE Physical Exam Vital Signs: Temp Pulse Resp BP Pulse Ox 98.1 F 78 16 147/80 H 98 07/28/20 07:46 07/28/20 09:11 07/28/20 09:11 07/28/20 07:46 07/28/20 09:11 Intake & Output 07/27/20 07/28/20 07/29/20 06:59 06:59 06:59 Intake Total 850 Balance 850 Weight 71 kg General appearance: PRESENT: no acute distress, well-developed, well-nourished Head exam: PRESENT: atraumatic, normocephalic Eye exam: PRESENT: conjunctiva pink, EOMI, PERRLA. ABSENT: scleral icterus Ear exam: PRESENT: normal external ear exam Mouth exam: PRESENT: moist, tongue midline Neck exam: ABSENT: carotid bruit, JVD, lymphadenopathy, thyromegaly Respiratory exam: PRESENT: clear to auscultation beth, unlabored. ABSENT: rales, rhonchi, wheezes Cardiovascular exam: PRESENT: RRR, +S1, +S2. ABSENT: diastolic murmur, rubs, systolic murmur Pulses: PRESENT: normal dorsalis pedis pul Vascular exam: PRESENT: normal capillary refill GI/Abdominal exam: PRESENT: normal bowel sounds, soft. ABSENT: distended, guarding, mass, organolmegaly, rebound, tenderness Rectal exam: PRESENT: deferred Extremities exam: PRESENT: full ROM. ABSENT: calf tenderness, clubbing, pedal edema Neurological exam: PRESENT: alert, awake, oriented to person, oriented to place, oriented to time, oriented to situation, CN II-XII grossly intact. ABSENT: motor sensory deficit Psychiatric exam: PRESENT: appropriate affect, normal mood. ABSENT: homicidal ideation, suicidal ideation Skin exam: PRESENT: dry, intact, rash, warm. ABSENT: cyanosis Results Laboratory Results: 07/28/20 04:36 07/27/20 13:05 07/27/20 07/27/20 07/27/20 11:05 11:05 11:05 WBC Cancelled RBC Cancelled Hgb Cancelled Hct Cancelled MCV Cancelled MCH Cancelled MCHC Cancelled RDW Cancelled Plt Count Cancelled Seg Neutrophils % Cancelled Sodium 140.6 Potassium 4.9 Chloride 109 H Carbon Dioxide 21 L Anion Gap 11 BUN 48 H Creatinine 1.37 H Est GFR ( Amer) 47 L Glucose 98 Calcium 9.1 Total Bilirubin 0.6 AST 34 Alkaline Phosphatase 67 Total Protein 6.6 Albumin 3.4 L Urine Color Urine Appearance Urine pH Ur Specific [place] Urine Protein Urine Glucose (UA) Urine Ketones Urine Blood Urine RBC (Auto) Blood Type O POSITIVE Antibody Screen NEGATIVE 07/27/20 07/27/20 07/27/20 11:05 11:55 13:05 WBC 2.3 L RBC 2.22 L Hgb 6.1 L Hct 18.0 L MCV 81 MCH 27.5 MCHC 33.8 RDW 15.8 H Plt Count 7 L* Seg Neutrophils % 74.0 Sodium 138.6 Potassium 4.6 Chloride 110 H Carbon Dioxide 18 L Anion Gap 11 BUN 49 H Creatinine 1.28 H Est GFR ( Amer) 51 L Glucose 83 Calcium 8.8 Total Bilirubin AST Alkaline Phosphatase Total Protein Albumin Urine Color YELLOW Urine Appearance SLIGHTLY-CLOUDY Urine pH 5.0 Ur Specific [place] 1.012 Urine Protein 100 H Urine Glucose (UA) NEGATIVE Urine Ketones NEGATIVE Urine Blood LARGE H Urine RBC (Auto) 19 Blood Type Antibody Screen 07/28/20 04:36 WBC 1.9 L RBC 2.87 L Hgb 7.9 L Hct 23.3 L MCV 81 MCH 27.6 MCHC 34.1 RDW 15.4 H Plt Count 5 L* Seg Neutrophils % Not Reportable Sodium Potassium Chloride Carbon Dioxide Anion Gap BUN Creatinine Est GFR ( Amer) Glucose Calcium Total Bilirubin AST Alkaline Phosphatase Total Protein Albumin Urine Color Urine Appearance Urine pH Ur Specific [place] Urine Protein Urine Glucose (UA) Urine Ketones Urine Blood Urine RBC (Auto) Blood Type Antibody Screen Assessment and Plan - Diagnosis (1) Pancytopenia Is this a current diagnosis for this admission?: Yes (2) Systemic lupus erythematosus arthritis Is this a current diagnosis for this admission?: Yes (3) Chronic kidney disease (CKD) stage G3a/A1, moderately decreased glomerular filtration rate (GFR) between 45-59 mL/min/1.73 square meter and albuminuria creatinine ratio less than 30 mg/g Is this a current diagnosis for this admission?: Yes - Plan Summary Summary: At this time as patient has no urgent cardiology needs will defer any cardiology consult if she remains stable she can follow-up as outpatient 07/28 Patient is being treated for presumptive ITP. Her prednisone has been increased to 80 mg a day. Hemoglobin did increase after transfusion but platelet count is still down. We will continue to monitor closely. At this time as per oil pipe inspector helper recommendation no platelet transfusion indicated. Patient remains afebrile and no indications for antibiotics currently - Time Time Spent with patient: 15-24 minutes Medications reviewed and adjusted accordingly: Yes Anticipated Discharge Disposition: Home, Self Care Anticipated Discharge Timeframe: within 72 hours
[2020-07-28 11:51] LABS: IRON(TIBC) 44.1 ug/dL (37-170)
[2020-07-28 11:52] LABS: ABSOLUTE RETICS # 0.051 10^6/uL (0.028-0.122); RETICULOCYTE COUNT (AUTO) 1.78 % (0.66-2.85)
--- NOTE | 2020-07-28 12:18 | PDOC PROGRESS REPORT ---
Subjective Date:: 07/28/20 Subjective:: Patient seen and examined. Resting comfortably. Reports epistaxis. No chest p ain, dyspnea, PND or orthopnea. Patient is not on telemetry. Reason For Visit: PANCYTOPENIA, SLE Physical Exam Vital Signs: Temp Pulse Resp BP Pulse Ox 98.1 F 78 16 147/80 H 98 07/28/20 07:46 07/28/20 09:11 07/28/20 09:11 07/28/20 07:46 07/28/20 09:11 Intake & Output 07/27/20 07/28/20 07/29/20 06:59 06:59 06:59 Intake Total 850 Balance 850 Weight 71 kg General appearance: PRESENT: well-developed, well-nourished Head exam: PRESENT: atraumatic Eye exam: PRESENT: conjunctiva pale, EOMI Mouth exam: PRESENT: moist Neck exam: PRESENT: full ROM Respiratory exam: PRESENT: clear to auscultation beth, symmetrical, unlabored Cardiovascular exam: PRESENT: RRR, +S1, +S2 GI/Abdominal exam: PRESENT: soft Rectal exam: PRESENT: deferred Neurological exam: PRESENT: alert, awake, oriented to person, oriented to place, oriented to time, oriented to situation Skin exam: PRESENT: dry, intact, normal color Results Laboratory Results: 07/28/20 04:36 07/27/20 13:05 07/27/20 07/27/20 07/27/20 11:05 11:55 13:05 WBC 2.3 L RBC 2.22 L Hgb 6.1 L Hct 18.0 L MCV 81 MCH 27.5 MCHC 33.8 RDW 15.8 H Plt Count 7 L* Seg Neutrophils % 74.0 Retic Count (auto) Sodium 138.6 Potassium 4.6 Chloride 110 H Carbon Dioxide 18 L Anion Gap 11 BUN 49 H Creatinine 1.28 H Est GFR ( Amer) 51 L Glucose 83 Calcium 8.8 Blood Type O POSITIVE Antibody Screen NEGATIVE 07/28/20 07/28/20 04:36 04:36 WBC 1.9 L RBC 2.87 L Hgb 7.9 L Hct 23.3 L MCV 81 MCH 27.6 MCHC 34.1 RDW 15.4 H Plt Count 5 L* Seg Neutrophils % Not Reportable Retic Count (auto) 1.78 Sodium Potassium Chloride Carbon Dioxide Anion Gap BUN Creatinine Est GFR ( Amer) Glucose Calcium Blood Type Antibody Screen EKG Comments: Laboratory data creatinine is 1.28 07/27/2020 Hemoglobin is 7.9 Hematocrit 23.3 White blood cell count 1.9 Platelets low at 5 Assessment & Plan - Diagnosis (1) Dilated cardiomyopathy Is this a current diagnosis for this admission?: Yes Plan: Dilated cardiomyopathy Euvolemic on exam Continue guideline directed medical therapy 3 water restriction to 1.25 L/day No added salt in the diet Plans for cardiac catheterization are on hold on account of profound anemia and thrombocytopenia Would ideally place patient on telemetry given dilated cardiomyopathy (2) Pancytopenia Is this a current diagnosis for this admission?: Yes Plan: Appreciate hematology input Patient is on prednisone therapy Potential plans for bone marrow biopsy if there is no improvement. No concerning ongoing bleeding noted. Plan continue to watch hemoglobin and hematocrit as well as platelet count. - Notes Notes: Continue sacubitril/valsartan 24/26 mg twice daily Continue metoprolol tartrate 50 mg twice daily continue atorvastatin 40 mg daily
[2020-07-28 12:50] LABS: PATH REVIEW PATHOLOGIST REVIEWED
[2020-07-28 12:50] LABS: PATH REVIEW PATHOLOGIST REVIEWED
[2020-07-28 13:03] LABS: FOLATE > 20.00 ng/mL (>2.76)
[2020-07-28] MEDS: ATORVASTATIN CALCIUM 40 MG TABLET PO SCH (21:21)
[2020-07-29] MEDS: LEVOTHYROXINE SODIUM 0.1 MG TABLET PO SCH (05:39)
[2020-07-29] MEDS: PANTOPRAZOLE SODIUM 40 MG TABLET.DR PO SCH (05:40)
[2020-07-29 08:08] LABS: HEMATOCRIT 23.1 % (36.0-47.0); MEAN CORPUSCULAR HEMOGLOBIN 27.3 pg (27.0-33.4); MEAN CORPUSCULAR HGB CONC 33.9 g/dL (32.0-36.0); MEAN CORPUSCULAR VOLUME 80 fl (80-97); RED BLOOD COUNT 2.87 10^6/uL (3.72-5.28); RED CELL DISTRIBUTION WIDTH 15.6 % (11.5-14.0); WHITE BLOOD COUNT 2.7 10^3/uL (4.0-10.5)
[2020-07-29 08:24] LABS: ABSOLUTE LYMPHOCYTES# (MANUAL) 0.4 10^3/uL (0.5-4.7); ABSOLUTE MONOCYTES # (MANUAL) 0.1 10^3/uL (0.1-1.4); BAND NEUTROPHILS % (MANUAL) 1 % (3-5); BASOPHILS % (MANUAL) 0 % (0-2); EOSINOPHILS % (MANUAL) 0 % (0-6); LYMPHOCYTES % (MANUAL) 16 % (13-45); METAMYELOCYTES % (MANUAL) 1 % (0-1); MONOCYTES % (MANUAL) 3 % (3-13); SEGMENTED NEUTROPHILS % (MAN) 79 % (42-78); TOTAL CELLS COUNTED 100
[2020-07-29 08:26] LABS: ANISOCYTOSIS 1+; PLATELET COMMENT DECREASED; TEAR DROP CELLS 1+
[2020-07-29] MEDS ORDERED: NORMAL SALINE 250 ML IV PRN ×4 (08:27→08:48)
[2020-07-29 08:33] LABS: HEMOGLOBIN 7.8 g/dL (12.0-15.5); PLATELET COUNT 16 10^3/uL (150-450)
--- NOTE | 2020-07-29 08:33 | PDOC PROGRESS REPORT ---
Subjective Date:: 07/29/20 Subjective:: Patient states that for several hours last night, she had another nose bleed. S he states that one of the nurses put a piece of gauze up her nostril and this seemed to stop it. No other evidence of bleeding. She has no other complaints today and is eating breakfast. She has been getting up to the bathroom without difficulty. Reason For Visit: PANCYTOPENIA, SLE Physical Exam Vital Signs: Temp Pulse Resp BP Pulse Ox 97.6 F 57 L 18 138/65 H 100 07/29/20 03:28 07/29/20 07:00 07/29/20 03:28 07/29/20 03:28 07/29/20 03:28 Intake & Output 07/28/20 07/29/20 07/30/20 06:59 06:59 06:59 Intake Total 850 1602 Balance 850 1602 Weight 71 kg 73.9 kg General appearance: PRESENT: no acute distress Head exam: PRESENT: normocephalic Eye exam: PRESENT: EOMI Mouth exam: PRESENT: moist Respiratory exam: PRESENT: unlabored Extremities exam: ABSENT: pedal edema Musculoskeletal exam: PRESENT: normal inspection Neurological exam: PRESENT: alert, awake Psychiatric exam: PRESENT: appropriate affect Skin exam: PRESENT: normal color Results Laboratory Results: 07/27/20 13:05 07/28/20 07/28/20 07/29/20 04:36 04:36 05:40 Seg Neutrophils % Not Reportable Retic Count (auto) 1.78 Iron 44.1 TIBC 260 % Saturation 17 Ferritin 318.00 H Vitamin B12 > 1000.0 H Folate > 20.00 Assessment & Plan - Diagnosis (1) Pancytopenia Is this a current diagnosis for this admission?: Yes Plan: Thought to be due to autoimmune modulating medications and autoimmune process. All offending agents are on hold (except perhaps Entresto). She is on Prednisone. Await today's CBC. (2) Systemic lupus erythematosus arthritis Is this a current diagnosis for this admission?: Yes (3) Epistaxis not due to trauma Is this a current diagnosis for this admission?: Yes Plan: I will transfuse one platelet pharesis pack, due to the active bleeding. I have asked nurses to place her on bleeding precautions and to call me with any other evidence of bleeding. - Time Time Spent with patient: Less than 15 minutes
[2020-07-29] MEDS: SACUBITRIL/VALSARTAN 24 MG/26 MG TABLET PO SCH ×2 (09:58→17:08)
[2020-07-29] MEDS: METOPROLOL TARTRATE 50 MG TABLET PO SCH (09:58)
[2020-07-29] MEDS: PREDNISONE 20 MG TABLET PO SCH ×2 (09:58→17:08)
[2020-07-29] MEDS: CALCIUM CARBONATE 600 MG/VITAMIN D3 400 UNIT TABLET PO SCH (09:58)
[2020-07-29] MEDS: DOCUSATE SODIUM 100 MG CAPSULE PO SCH (09:58)
[2020-07-29] MEDS: MULTIVITAMIN TABLET PO SCH (09:58)
--- NOTE | 2020-07-29 16:12 | PDOC PROGRESS REPORT ---
Subjective Date:: 07/29/20 Subjective:: Patient feels well. She apparently had episodes of epistaxis yesterday evening and so she was transfused with platelets. She is also to be transfused with packed red blood cells Reason For Visit: PANCYTOPENIA, SLE Physical Exam Vital Signs: Temp Pulse Resp BP Pulse Ox 98.1 F 67 16 150/75 H 98 07/29/20 11:20 07/29/20 14:00 07/29/20 13:29 07/29/20 11:20 07/29/20 13:29 Intake & Output 07/28/20 07/29/20 07/30/20 06:59 06:59 06:59 Intake Total 850 1602 545 Balance 850 1602 545 Weight 71 kg 73.9 kg General appearance: PRESENT: no acute distress, well-nourished Head exam: PRESENT: atraumatic, normocephalic Eye exam: PRESENT: EOMI, PERRLA. ABSENT: scleral icterus Mouth exam: PRESENT: moist, tongue midline Neck exam: ABSENT: carotid bruit, JVD, lymphadenopathy, thyromegaly Respiratory exam: PRESENT: clear to auscultation beth. ABSENT: rales, rhonchi, wheezes Cardiovascular exam: PRESENT: RRR, +S1, +S2. ABSENT: diastolic murmur, rubs, systolic murmur Pulses: PRESENT: normal dorsalis pedis pul Vascular exam: PRESENT: normal capillary refill GI/Abdominal exam: PRESENT: normal bowel sounds, soft. ABSENT: distended, guarding, mass, organolmegaly, rebound, tenderness Rectal exam: PRESENT: deferred Extremities exam: PRESENT: full ROM. ABSENT: calf tenderness, clubbing, pedal edema Neurological exam: PRESENT: alert, awake, oriented to person, oriented to place, oriented to time, oriented to situation, CN II-XII grossly intact. ABSENT: motor sensory deficit Psychiatric exam: PRESENT: appropriate affect, normal mood. ABSENT: homicidal ideation, suicidal ideation Skin exam: PRESENT: dry, intact, warm. ABSENT: cyanosis, rash Results Laboratory Results: 07/29/20 05:40 07/27/20 13:05 07/27/20 07/29/20 11:05 05:40 WBC 2.7 L RBC 2.87 L Hgb 7.8 L Hct 23.1 L MCV 80 MCH 27.3 MCHC 33.9 RDW 15.6 H Plt Count 16 L* D Seg Neutrophils % Not Reportable Blood Type O POSITIVE Antibody Screen NEGATIVE Assessment and Plan - Diagnosis (1) Pancytopenia Is this a current diagnosis for this admission?: Yes Plan: Patient came in with a platelet count of 7000 and she had been having some epistaxis as well as ecchymosis. I see very little to take care. Dr. Archuleta was consulted and I did speak with her and she suggested a blood transfusion only and to hold off on any platelets at this time. Pathologist did review her slide as recommended and no schistocytes were identified and as such patient to be started on prednisone for possible ITP. She suggest to monitor for any bleeding for now. (2) Systemic lupus erythematosus arthritis Is this a current diagnosis for this admission?: Yes (3) Chronic kidney disease (CKD) stage G3a/A1, moderately decreased glomerular filtration rate (GFR) between 45-59 mL/min/1.73 square meter and albuminuria creatinine ratio less than 30 mg/g Is this a current diagnosis for this admission?: Yes - Plan Summary Summary: At this time as patient has no urgent cardiology needs will defer any cardiology consult if she remains stable she can follow-up as outpatient 07/28 Patient is being treated for presumptive ITP. Her prednisone has been increased to 80 mg a day. Hemoglobin did increase after transfusion but platelet count is still down. We will continue to monitor closely. At this time as per he matologist recommendation no platelet transfusion indicated. Patient remains afebrile and no indications for antibiotics currently 07/29 patient is being transfused with packed red blood cell blood as well as platelets. Her platelet count is noted to be slightly elevated. She continues on prednisone. Appreciate oncology's input. Remains hemodynamically stable - Time Time Spent with patient: 15-24 minutes Medications reviewed and adjusted accordingly: Yes Anticipated Discharge Disposition: Home, Self Care Anticipated Discharge Timeframe: within 48 hours
[2020-07-29] MEDS: ATORVASTATIN CALCIUM 40 MG TABLET PO SCH (21:57)
[2020-07-29 23:15] LABS: ABSOLUTE LYMPHOCYTES (AUTO) 0.4 10^3/uL (0.5-4.7); ABSOLUTE MONOCYTES (AUTO) 0.3 10^3/uL (0.1-1.4); ABSOLUTE NEUT (AUTO) 5.2 10^3/uL (1.7-8.2); BASOPHILS % (AUTO) 0.1 % (0-2); HEMATOCRIT 28.8 % (36.0-47.0); LYMPHOCYTES % (AUTO) 6.4 % (13-45); MEAN CORPUSCULAR HEMOGLOBIN 28.7 pg (27.0-33.4); MEAN CORPUSCULAR VOLUME 82 fl (80-97); MONOCYTES % (AUTO) 4.4 % (3-13); RED BLOOD COUNT 3.51 10^6/uL (3.72-5.28); RED CELL DISTRIBUTION WIDTH 15.5 % (11.5-14.0); SEGMENTED NEUTROPHILS % (AUTO) 89.1 % (42-78); TOTAL CELLS COUNTED % (AUTO) 100 %
[2020-07-29 23:57] LABS: WHITE BLOOD COUNT 5.8 10^3/uL (4.0-10.5)
[2020-07-29 23:58] LABS: HEMOGLOBIN 10.1 g/dL (12.0-15.5); PLATELET COUNT 32 10^3/uL (150-450)
[2020-07-30] MEDS: LEVOTHYROXINE SODIUM 0.1 MG TABLET PO SCH (05:36)
[2020-07-30] MEDS: PANTOPRAZOLE SODIUM 40 MG TABLET.DR PO SCH (05:36)
[2020-07-30 06:16] LABS: ABSOLUTE LYMPHOCYTES (AUTO) 0.4 10^3/uL (0.5-4.7); ABSOLUTE MONOCYTES (AUTO) 0.3 10^3/uL (0.1-1.4); ABSOLUTE NEUT (AUTO) 4.6 10^3/uL (1.7-8.2); BASOPHILS % (AUTO) 0.1 % (0-2); HEMATOCRIT 30.2 % (36.0-47.0); HEMOGLOBIN 10.6 g/dL (12.0-15.5); LYMPHOCYTES % (AUTO) 6.7 % (13-45); MEAN CORPUSCULAR HGB CONC 35.2 g/dL (32.0-36.0); MEAN CORPUSCULAR VOLUME 82 fl (80-97); MONOCYTES % (AUTO) 6.3 % (3-13); RED BLOOD COUNT 3.67 10^6/uL (3.72-5.28); RED CELL DISTRIBUTION WIDTH 15.5 % (11.5-14.0); SEGMENTED NEUTROPHILS % (AUTO) 86.9 % (42-78); TOTAL CELLS COUNTED % (AUTO) 100 %; WHITE BLOOD COUNT 5.4 10^3/uL (4.0-10.5)
[2020-07-30 06:30] LABS: ANION GAP 9 (5-19); BLOOD UREA NITROGEN 67 mg/dL (7-20); CALCIUM 8.4 mg/dL (8.4-10.2); CARBON DIOXIDE 18 mmol/L (22-30); CHLORIDE 109 mmol/L (98-107); GLUCOSE 181 mg/dL (75-110); POTASSIUM 4.8 mmol/L (3.6-5.0)
[2020-07-30 07:01] LABS: PLATELET COUNT 35 10^3/uL (150-450)
[2020-07-30] MEDS: PREDNISONE 20 MG TABLET PO SCH ×2 (09:16→17:30)
[2020-07-30] MEDS: METOPROLOL TARTRATE 50 MG TABLET PO SCH (09:16)
[2020-07-30] MEDS: SACUBITRIL/VALSARTAN 24 MG/26 MG TABLET PO SCH ×2 (09:16→17:30)
[2020-07-30] MEDS: MULTIVITAMIN TABLET PO SCH (09:16)
[2020-07-30] MEDS: DOCUSATE SODIUM 100 MG CAPSULE PO SCH (09:16)
[2020-07-30] MEDS: CALCIUM CARBONATE 600 MG/VITAMIN D3 400 UNIT TABLET PO SCH (09:16)
--- NOTE | 2020-07-30 12:19 | PDOC PROGRESS REPORT ---
Subjective Date:: 07/30/20 Subjective:: Patient feels well. She apparently had episodes of epistaxis yesterday evening and so she was transfused with platelets. She is also to be transfused with packed red blood cells Patient platelet count continues to recover currently at 35,000. No further bleeding episodes. She remains afebrile and her white count is also recovered. Hemoglobin is currently at 10.6. She is still somewhat acidotic and her kidney function still reflects azotemia with a BUN of 67 she has received a total of 4 units of packed red blood cells and 1 platelet pheresis I think is reasonable to continue to monitor her at least overnight and make sure her counts remain stable and hopefully improved prior to discharge. She remains on prednisone 40 mg twice a day and remains off any immunosuppressants or biologic agents Reason For Visit: PANCYTOPENIA, SLE Physical Exam Vital Signs: Temp Pulse Resp BP Pulse Ox 97.6 F 54 L 17 164/75 H 100 07/30/20 07:50 07/30/20 07:14 07/30/20 07:14 07/30/20 07:14 07/30/20 07:14 Intake & Output 07/29/20 07/30/20 07/31/20 06:59 06:59 06:59 Intake Total 1602 2044 Balance 1602 2044 Weight 73.9 kg 75.5 kg General appearance: PRESENT: no acute distress, well-nourished Head exam: PRESENT: atraumatic, normocephalic Eye exam: PRESENT: conjunctiva pink, EOMI, PERRLA. ABSENT: scleral icterus Ear exam: PRESENT: normal external ear exam Mouth exam: PRESENT: moist, tongue midline Neck exam: ABSENT: carotid bruit, JVD, lymphadenopathy, thyromegaly Respiratory exam: PRESENT: clear to auscultation beth. ABSENT: rales, rhonchi, wheezes Cardiovascular exam: PRESENT: RRR. ABSENT: diastolic murmur, rubs, systolic murmur Pulses: PRESENT: normal dorsalis pedis pul Vascular exam: PRESENT: normal capillary refill GI/Abdominal exam: PRESENT: normal bowel sounds, soft. ABSENT: distended, guarding, mass, organolmegaly, rebound, tenderness Rectal exam: PRESENT: deferred Extremities exam: PRESENT: full ROM. ABSENT: calf tenderness, clubbing, pedal edema Neurological exam: PRESENT: alert, awake, oriented to person, oriented to place, oriented to time, oriented to situation, CN II-XII grossly intact. ABSENT: motor sensory deficit Psychiatric exam: PRESENT: appropriate affect, normal mood. ABSENT: homicidal ideation, suicidal ideation Skin exam: PRESENT: dry, intact, warm, other - scattered rashes, contusions. ABSENT: cyanosis, rash Results Laboratory Results: 07/30/20 05:15 07/30/20 05:15 07/27/20 07/29/20 07/29/20 11:05 21:25 23:01 WBC Cancelled 5.8 D RBC Cancelled 3.51 L Hgb Cancelled 10.1 L D Hct Cancelled 28.8 L MCV Cancelled 82 MCH Cancelled 28.7 MCHC Cancelled 35.0 RDW Cancelled 15.5 H Plt Count Cancelled 32 L Seg Neutrophils % Cancelled 89.1 H Sodium Potassium Chloride Carbon Dioxide Anion Gap BUN Creatinine Est GFR ( Amer) Glucose Calcium Blood Type O POSITIVE Antibody Screen NEGATIVE 07/30/20 07/30/20 05:15 05:15 WBC 5.4 RBC 3.67 L Hgb 10.6 L Hct 30.2 L MCV 82 MCH 29.0 MCHC 35.2 RDW 15.5 H Plt Count 35 L Seg Neutrophils % 86.9 H Sodium 136.3 L Potassium 4.8 Chloride 109 H Carbon Dioxide 18 L Anion Gap 9 BUN 67 H Creatinine 1.34 H Est GFR ( Amer) 48 L Glucose 181 H Calcium 8.4 Blood Type Antibody Screen Assessment and Plan - Diagnosis (1) Pancytopenia Is this a current diagnosis for this admission?: Yes (2) Systemic lupus erythematosus arthritis Is this a current diagnosis for this admission?: Yes (3) Chronic kidney disease (CKD) stage G3a/A1, moderately decreased glomerular filtration rate (GFR) between 45-59 mL/min/1.73 square meter and albuminuria creatinine ratio less than 30 mg/g Is this a current diagnosis for this admission?: Yes - Plan Summary Summary: At this time as patient has no urgent cardiology needs will defer any cardiology consult if she remains stable she can follow-up as outpatient 07/28 Patient is being treated for presumptive ITP. Her prednisone has been increased to 80 mg a day. Hemoglobin did increase after transfusion but platelet count is still down. We will continue to monitor closely. At this time as per criminal legal assistant recommendation no platelet transfusion indicated. Patient remains afebrile and no indications for antibiotics currently 07/29 patient is being transfused with packed red blood cell blood as well as platelets. Her platelet count is noted to be slightly elevated. She continues on prednisone. Appreciate oncology's input. Remains hemodynamically stable - Time Time Spent with patient: 15-24 minutes Medications reviewed and adjusted accordingly: Yes Anticipated Discharge Disposition: Home, Self Care Anticipated Discharge Timeframe: within 24 hours
[2020-07-30] MEDS: ATORVASTATIN CALCIUM 40 MG TABLET PO SCH (21:00)
[2020-07-31] MEDS: PANTOPRAZOLE SODIUM 40 MG TABLET.DR PO SCH (05:37)
[2020-07-31] MEDS: LEVOTHYROXINE SODIUM 0.1 MG TABLET PO SCH (05:37)
--- NOTE | 2020-07-31 08:07 | PDOC PROGRESS REPORT ---
Subjective Date:: 07/31/20 Subjective:: Patient states that she feels much better than on admission. No concerns today. No evidence of bleeding. Reason For Visit: PANCYTOPENIA, SLE Physical Exam Vital Signs: Temp Pulse Resp BP Pulse Ox 97.5 F 81 17 174/82 H 100 07/31/20 04:24 07/31/20 07:00 07/31/20 04:24 07/31/20 04:24 07/31/20 04:24 Intake & Output 07/30/20 07/31/20 08/01/20 06:59 06:59 06:59 Intake Total 2043 1905 Balance 2043 1905 Weight 75.5 kg 75.5 kg General appearance: PRESENT: no acute distress Head exam: PRESENT: normocephalic Eye exam: PRESENT: EOMI Respiratory exam: PRESENT: unlabored Extremities exam: ABSENT: pedal edema Neurological exam: PRESENT: alert, other - Sitting up in bed. Psychiatric exam: PRESENT: appropriate affect Skin exam: PRESENT: normal color, other - Echymoses over arms. Results Laboratory Results: 07/30/20 05:15 07/30/20 05:15 Assessment & Plan - Diagnosis (1) Pancytopenia Is this a current diagnosis for this admission?: Yes Plan: May have been due to immuosuppressive medications. Now much improved. (2) Systemic lupus erythematosus arthritis Is this a current diagnosis for this admission?: Yes Plan: All regular meds on hold. She will need to coordinate with chief information security officer on discharge to slowly resume these medications. (3) Epistaxis not due to trauma Is this a current diagnosis for this admission?: Yes Plan: Now resolved. No further bleeding. (4) Thrombocytopenia Is this a current diagnosis for this admission?: Yes Plan: Most likely ITP. This continue to improve. OK to discharge from my standpoint. She should continue current dose of prednisone and I will see her in the office for weekly CBCs to wean this dose over time. - Time Time Spent with patient: Less than 15 minutes
[2020-07-31] MEDS: DOCUSATE SODIUM 100 MG CAPSULE PO SCH (09:31)
[2020-07-31] MEDS: MULTIVITAMIN TABLET PO SCH (09:31)
[2020-07-31] MEDS: PREDNISONE 20 MG TABLET PO SCH (09:31)
[2020-07-31] MEDS: METOPROLOL TARTRATE 50 MG TABLET PO SCH (09:31)
[2020-07-31] MEDS: SACUBITRIL/VALSARTAN 24 MG/26 MG TABLET PO SCH (09:32)
[2020-07-31] MEDS: CALCIUM CARBONATE 600 MG/VITAMIN D3 400 UNIT TABLET PO SCH (09:32)
[2020-07-31 10:55] LABS: ABSOLUTE LYMPHOCYTES (AUTO) 0.3 10^3/uL (0.5-4.7); ABSOLUTE MONOCYTES (AUTO) 0.4 10^3/uL (0.1-1.4); ABSOLUTE NEUT (AUTO) 4.9 10^3/uL (1.7-8.2); BASOPHILS % (AUTO) 0.1 % (0-2); HEMATOCRIT 31.5 % (36.0-47.0); HEMOGLOBIN 10.6 g/dL (12.0-15.5); LYMPHOCYTES % (AUTO) 5.6 % (13-45); MEAN CORPUSCULAR HEMOGLOBIN 28.4 pg (27.0-33.4); MEAN CORPUSCULAR HGB CONC 33.8 g/dL (32.0-36.0); MEAN CORPUSCULAR VOLUME 84 fl (80-97); MONOCYTES % (AUTO) 6.5 % (3-13); RED BLOOD COUNT 3.75 10^6/uL (3.72-5.28); RED CELL DISTRIBUTION WIDTH 15.4 % (11.5-14.0); SEGMENTED NEUTROPHILS % (AUTO) 87.8 % (42-78); TOTAL CELLS COUNTED % (AUTO) 100 %; WHITE BLOOD COUNT 5.6 10^3/uL (4.0-10.5)
[2020-07-31 11:06] LABS: ANION GAP 14 (5-19); BLOOD UREA NITROGEN 65 mg/dL (7-20); CALCIUM 7.9 mg/dL (8.4-10.2); CARBON DIOXIDE 15 mmol/L (22-30); CHLORIDE 106 mmol/L (98-107); GLUCOSE 287 mg/dL (75-110); POTASSIUM 4.6 mmol/L (3.6-5.0)
[2020-07-31 11:39] LABS: PLATELET COUNT 36 10^3/uL (150-450)
[2020-07-31] MEDS ORDERED: SODIUM BICARBONATE 8.4% INJ 50 MEQ/50 ML DISP.SYRIN IV ONE (12:15)
[2020-07-31 16:11] LABS: ANION GAP 8 (5-19); BLOOD UREA NITROGEN 68 mg/dL (7-20); CALCIUM 8.1 mg/dL (8.4-10.2); CARBON DIOXIDE 21 mmol/L (22-30); CHLORIDE 107 mmol/L (98-107); GLUCOSE 204 mg/dL (75-110); POTASSIUM 4.8 mmol/L (3.6-5.0)
[2020-07-31 16:28] VITALS: BP 163/82
--- NOTE | 2020-07-31 16:31 | PDOC DISCHARGE SUMMARY ---
Impression - Admit/DC Date/PCP Admission Date/Primary Care Provider: 07/27/20 13:45 GLORIA CHAVEZ Discharge Date: 07/31/20 - Discharge Diagnosis (1) Pancytopenia Is this a current diagnosis for this admission?: Yes (2) Systemic lupus erythematosus arthritis Is this a current diagnosis for this admission?: Yes (3) Chronic kidney disease (CKD) stage G3a/A1, moderately decreased glomerular filtration rate (GFR) between 45-59 mL/min/1.73 square meter and albuminuria creatinine ratio less than 30 mg/g Is this a current diagnosis for this admission?: Yes (4) Acidosis, metabolic Is this a current diagnosis for this admission?: Yes (5) Drug-induced ITP Is this a current diagnosis for this admission?: Yes - Additional Information Resuscitation Status: Full Code Discharge Diet: As Tolerated Discharge Activity: Activity As Tolerated Referrals: AMEE GRIMM FNP-C [Primary Care Provider] - 08/08/20 (within a week to recheck CBC, BMPand other lab values as indicated) DANISH SMITH MD [ACTIVE STAFF] - (within a week with CBC to determine further steroid dose. ) Prescriptions: Prednisone [Deltasone 20 mg Tablet] 40 mg PO BID #60 tablet Home Medications: Levothyroxine Sodium [Synthroid] 200 mcg PO Q6AM 06/14/20 Multivitamin [Tab-A-Carter (Multiple Vitamin) Tablet] 1 tab PO DAILY 06/23/20 Atorvastatin Calcium [Lipitor 40 mg Tablet] 40 mg PO QHS 30 Days #30 tablet 06/24/20 Furosemide [Lasix 20 mg Tablet] 20 mg PO QAM 14 Days #30 tablet 06/24/20 Metoprolol Tartrate [Lopressor 50 mg Tablet] 50 mg PO DAILY 30 Days #30 tablet 06/24/20 Sacubitril/Valsartan [Entresto 24 mg/26 mg Tablet] 1 tab PO BID 30 Days #60 tablet 06/24/20 Calcium Carbonate/Vitamin D3 [Calcium 600-Vit D3 400 Caplet] 1 tab-cap PO DAILY 07/27/20 Acetaminophen [Tylenol 325 mg Tablet] 650 mg PO Q4HP PRN tablet 07/31/20 Prednisone [Deltasone 20 mg Tablet] 40 mg PO BID #60 tablet 07/31/20 History of Present Illiness History of Present Illness: DANDRE SANTOS is a 64 year old female Patient presents emergency room with evaluation after being sent from the cardiology office. She was found to have severe thrombocytopenia as well as anemia during routine blood work for a preop assessment for cardiac catheterization patient complains of epistaxis last episode this morning and she said she had noticed some bleeding from her skin but otherwise denies any vagina bleeding, hematuria or bloody stool. Of note she does have hematuria on her urinalysis. Patient was in the hospital about 3 to 4 weeks ago. She had presented for with chest pain. In fact she was scheduled for cardiac cath from the visit today. She was on prednisone, azathioprine as well as Plaquenil and it appears she was taken off the prednisone and azathioprine at that visit. She was supposed to go back and see her elevator repairer. She does have a history of SLE since 2004. She had been on the aforementioned medications since 2004 and on Plaquenil for about 4 years. She had been taking Plaquenil Hospital Course Hospital Course: Patient was admitted with severe thrombocytopenia. She had been scheduled for cardiac cath and had preop evaluation done which revealed a platelet count of 7000 and so she was sent to the hospital. Patient had episodes of epistaxis while in hospital. She was also found to be anemic with hemoglobin of 6.8 on initial presentation. As such she was initially transfused with 2 units of packed red blood cells and was started on prednisone for possible ITP. Her platelet count initially went down to 5000 and she had further episodes of epistasis so she did receive 1 pheresis pack of platelet and received another 2 units of packed red blood cells. Platelet count has since showed an increased and currently it is 36,000 today. She was seen by Dr. Archuleta on consultation and she will follow up with her as outpatient to monitor her CBC. Patient was noted to be acidotic today although the etiology was not quite clear. There was no signs of infection and she remained afebrile with no localizing clinical infection while in hospital. Also azotemic with a creatinine at about 1.3 and a BUN rising from 48-68 which may be a reflection of the bleeding that she had. 50 mEq of bicarb as a CO2 was 15 early on today and repeat value she is 21. Her glucose was also noted to be elevated but this is likely secondary to prednisone. Patient will need to follow-up with her PCP so that a BMP as well as a CBC can be monitored to ensure resolution back to baseline. She has otherwise remained hemodynamically stable in fact her blood pressure has been somewhat high and so this will need to be reevaluated with her medications adjusted if needed metabolic acidosis. 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 As she has been taken off Plaquenil and her other immuno modulating agents and she will need to follow-up with her elevator repairer for evaluation Physical Exam Vital Signs: Temp Pulse Resp BP Pulse Ox 97.9 F 57 L 16 157/91 H 99 07/31/20 11:27 07/31/20 14:00 07/31/20 11:27 07/31/20 11:27 07/31/20 11:27 Intake & Output 07/30/20 07/31/20 08/01/20 06:59 06:59 06:59 Intake Total 2043 1906 240 Balance 2043 1906 240 Weight 75.5 kg 75.5 kg General appearance: PRESENT: no acute distress, well-developed, well-nourished Head exam: PRESENT: atraumatic, normocephalic Eye exam: PRESENT: conjunctiva pink, EOMI, PERRLA. ABSENT: scleral icterus Ear exam: PRESENT: normal external ear exam Mouth exam: PRESENT: moist, tongue midline Neck exam: ABSENT: carotid bruit, JVD, lymphadenopathy, thyromegaly Respiratory exam: PRESENT: clear to auscultation beth. ABSENT: rales, rhonchi, wheezes Cardiovascular exam: PRESENT: RRR, +S1, +S2. ABSENT: diastolic murmur, rubs, systolic murmur Pulses: PRESENT: normal dorsalis pedis pul Vascular exam: PRESENT: normal capillary refill GI/Abdominal exam: PRESENT: normal bowel sounds, soft. ABSENT: distended, guarding, mass, organolmegaly, rebound, tenderness Rectal exam: PRESENT: deferred Extremities exam: PRESENT: full ROM. ABSENT: calf tenderness, clubbing, pedal edema Neurological exam: PRESENT: alert, awake, oriented to person, oriented to place, oriented to time, oriented to situation, CN II-XII grossly intact. ABSENT: motor sensory deficit Psychiatric exam: PRESENT: appropriate affect, normal mood. ABSENT: homicidal ideation, suicidal ideation Skin exam: PRESENT: dry, intact, rash, warm. ABSENT: cyanosis Results Laboratory Results: WBC 5.6 10^3/uL (4.0-10.5) 07/31/20 09:35 RBC 3.75 10^6/uL (3.72-5.28) 07/31/20 09:35 Hgb 10.6 g/dL (12.0-15.5) L 07/31/20 09:35 Hct 31.5 % (36.0-47.0) L 07/31/20 09:35 MCV 84 fl (80-97) 07/31/20 09:35 MCH 28.4 pg (27.0-33.4) 07/31/20 09:35 MCHC 33.8 g/dL (32.0-36.0) 07/31/20 09:35 RDW 15.4 % (11.5-14.0) H 07/31/20 09:35 Plt Count 36 10^3/uL (150-450) L 07/31/20 09:35 Lymph % (Auto) 5.6 % (13-45) L 07/31/20 09:35 [place] % (Auto) 6.5 % (3-13) 07/31/20 09:35 Eos % (Auto) 0.0 % (0-6) 07/31/20 09:35 Baso % (Auto) 0.1 % (0-2) 07/31/20 09:35 Reticulocyte # 0.051 10^6/uL (0.028-0.122) 07/28/20 04:36 Absolute Neuts (auto) 4.9 10^3/uL (1.7-8.2) 07/31/20 09:35 Absolute Lymphs (auto) 0.3 10^3/uL (0.5-4.7) L 07/31/20 09:35 Absolute Monos (auto) 0.4 10^3/uL (0.1-1.4) 07/31/20 09:35 Absolute Eos (auto) 0.0 10^3/uL (0.0-0.6) 07/31/20 09:35 Absolute Basos (auto) 0.0 10^3/uL (0.0-0.2) 07/31/20 09:35 Total Counted Cancelled 07/29/20 21:25 Seg Neutrophils % 87.8 % (42-78) H 07/31/20 09:35 Seg Neuts % (Manual) Cancelled 07/29/20 21:25 Band Neutrophils % Cancelled 07/29/20 21:25 Lymphocytes % (Manual) Cancelled 07/29/20 21:25 Atypical Lymphs % Cancelled 07/29/20 21:25 Monocytes % (Manual) Cancelled 07/29/20 21:25 Eosinophils % (Manual) Cancelled 07/29/20 21:25 Basophils % (Manual) Cancelled 07/29/20 21:25 Metamyelocytes % Cancelled 07/29/20 21:25 Myelocytes % Cancelled 07/29/20 21:25 Promyelocytes % Cancelled 07/29/20 21:25 Immature Leukocytes % Cancelled 07/29/20 21:25 Abs Neuts (Manual) Cancelled 07/29/20 21:25 Abs Lymphs (Manual) Cancelled 07/29/20 21:25 Abs Monocytes (Manual) Cancelled 07/29/20 21:25 Absolute Eos (Manual) Cancelled 07/29/20 21:25 Abs Basophils (Manual) Cancelled 07/29/20 21:25 Nucleated RBCs Cancelled 07/29/20 21:25 Differential Comment Cancelled 07/29/20 21:25 Hypersegmented Neuts Cancelled 07/29/20 21:25 Smudge Cells Cancelled 07/29/20 21:25 Toxic Granulation Cancelled 07/29/20 21:25 Toxic Vacuolation Cancelled 07/29/20 21:25 Dohle Bodies Cancelled 07/29/20 21:25 Ayla Rods Cancelled 07/29/20 21:25 WBC Morphology Comment Cancelled 07/29/20 21:25 Platelet Estimate Cancelled 07/29/20 21:25 Clumped Platelets Cancelled 07/29/20 21:25 Large Platelets Cancelled 07/29/20 21:25 Giant Platelets Cancelled 07/29/20 21:25 Platelet Comment Cancelled 07/29/20 21:25 Polychromasia Cancelled 07/29/20 21:25 Hypochromasia Cancelled 07/29/20 21:25 Poikilocytosis Cancelled 07/29/20 21:25 Basophilic Stippling Cancelled 07/29/20 21:25 Anisocytosis Cancelled 07/29/20 21:25 Microcytosis Cancelled 07/29/20 21:25 Macrocytosis Cancelled 07/29/20 21:25 Spherocytes Cancelled 07/29/20 21:25 Pappenheimer Bodies Cancelled 07/29/20 21:25 Sickle Cells Cancelled 07/29/20 21:25 Target Cells Cancelled 07/29/20 21:25 Tear Drop Cells Cancelled 07/29/20 21:25 Ovalocytes Cancelled 07/29/20 21:25 Stomatocytes Cancelled 07/29/20 21:25 Helmet Cells Cancelled 07/29/20 21:25 [place] Bodies Cancelled 07/29/20 21:25 [place]lap Cells Cancelled 07/29/20 21:25 Acanthocytes (Spur) Cancelled 07/29/20 21:25 Rouleaux Cancelled 07/29/20 21:25 Schistocytes Cancelled 07/29/20 21:25 RBC Morph Comment Cancelled 07/29/20 21:25 Retic Count (auto) 1.78 % (0.66-2.85) 07/28/20 04:36 PT 13.1 SEC (11.4-15.4) 07/27/20 11:05 INR 0.97 07/27/20 11:05 APTT 26.3 SEC (23.5-35.8) 07/27/20 11:05 Sodium 136.3 mmol/L (137-145) L 07/31/20 15:45 Potassium 4.8 mmol/L (3.6-5.0) 07/31/20 15:45 Chloride 107 mmol/L (98-107) 07/31/20 15:45 Carbon Dioxide 21 mmol/L (22-30) L 07/31/20 15:45 Anion Gap 8 (5-19) 07/31/20 15:45 BUN 68 mg/dL (7-20) H 07/31/20 15:45 Creatinine 1.33 mg/dL (0.52-1.25) H 07/31/20 15:45 Est GFR ( Amer) 49 (>60) L 07/31/20 15:45 Est GFR (MDRD) Non-Af 40 (>60) L 07/31/20 15:45 Glucose 204 mg/dL (75-110) H 07/31/20 15:45 Calcium 8.1 mg/dL (8.4-10.2) L 07/31/20 15:45 Iron 44.1 ug/dL (37-170) 07/28/20 04:36 TIBC 260 ug/dL (250-450) 07/28/20 04:36 % Saturation 17 % 07/28/20 04:36 Ferritin 318.00 ng/mL (11.1-264.0) H 07/28/20 04:36 Total Bilirubin 0.6 mg/dL (0.2-1.3) 07/27/20 11:05 Direct Bilirubin 0.1 mg/dL (0.0-0.4) 07/27/20 11:05 Neonat Total Bilirubin Not Reportable 07/27/20 11:05 Neonat Direct Bilirubin Not Reportable 07/27/20 11:05 Neonat Indirect Bili Not Reportable 07/27/20 11:05 AST 34 U/L (14-36) 07/27/20 11:05 ALT 19 U/L (<35) 07/27/20 11:05 Alkaline Phosphatase 67 U/L (38-126) 07/27/20 11:05 Total Protein 6.6 g/dL (6.3-8.2) 07/27/20 11:05 Albumin 3.4 g/dL (3.5-5.0) L 07/27/20 11:05 Vitamin B12 > 1000.0 pg/mL (239-931) H 07/28/20 04:36 Folate > 20.00 ng/mL (>2.76) 07/28/20 04:36 Urine Color YELLOW 07/27/20 11:05 Urine Appearance SLIGHTLY-CLOUDY 07/27/20 11:05 Urine pH 5.0 (5.0-9.0) 07/27/20 11:05 Ur Specific [place] 1.012 07/27/20 11:05 Urine Protein 100 mg/dL (NEGATIVE) H 07/27/20 11:05 Urine Glucose (UA) NEGATIVE mg/dL (NEGATIVE) 07/27/20 11:05 Urine Ketones NEGATIVE mg/dL (NEGATIVE) 07/27/20 11:05 Urine Blood LARGE (NEGATIVE) H 07/27/20 11:05 Urine Nitrite (Reflex) NEGATIVE (NEGATIVE) 07/27/20 11:05 Urine Bilirubin NEGATIVE (NEGATIVE) 07/27/20 11:05 Urine Urobilinogen NEGATIVE mg/dL (<2.0) 07/27/20 11:05 Leukocyte Esterase Rfl NEGATIVE (NEGATIVE) 07/27/20 11:05 Urine RBC (Auto) 19 /HPF 07/27/20 11:05 Urine Bacteria (Auto) TRACE /HPF 07/27/20 11:05 Urine WBC (Reflex) 6 /HPF 07/27/20 11:05 Squamous Epi Cells Auto 1 /HPF 07/27/20 11:05 Urine Mucus (Auto) RARE /LPF 07/27/20 11:05 Urine Ascorbic Acid NEGATIVE (NEGATIVE) 07/27/20 11:05 Slides for Path Review Cancelled 07/29/20 21:25 Blood Type O POSITIVE 07/27/20 11:05 Blood Type Confirm O POSITIVE 07/27/20 13:49 Antibody Screen NEGATIVE 07/27/20 11:05 Crossmatch See Detail 07/27/20 11:05 Plan Health Concerns: Follow-up with PCP to monitor her CBC as well as BMP and for medication adjustments as needed. Patient also need to follow-up with her elevator repairer so she can be placed on other agents as appropriate for her SLE as are her pertinent medications have been discontinued Time Spent: Greater than 30 Minutes Stroke Is this a Stroke Patient?: No Acute Heart Failure Is this a Heart Failure Patient?: No
== END 2020-07-31 16:43 | disposition home or self-care (01) | DRG 809 ==
LOC: ER 10:00 → EH 13:45 → 4W 22:45
PROVIDERS: ADMIT Internal Medicine; ATTEND Internal Medicine
PROC: 30233N1 Transfusion of Nonautologous Red Blood Cells into Peripheral Vein, Percutaneous Approach (ICD-10-PCS; principal; 2020-07-27)
PROC: 30233R1 Transfusion of Nonautologous Platelets into Peripheral Vein, Percutaneous Approach (ICD-10-PCS; 2020-07-27)
PROC: 30233N1 Transfusion of Nonautologous Red Blood Cells into Peripheral Vein, Percutaneous Approach (ICD-10-PCS; 2020-07-29)
DX: D61.818 Other pancytopenia (principal); D69.3 Immune thrombocytopenic purpura; E87.2 Acidosis; I42.0 Dilated cardiomyopathy; D63.1 Anemia in chronic kidney disease; M32.9 Systemic lupus erythematosus, unspecified; I11.0 Hypertensive heart disease with heart failure; I50.9 Heart failure, unspecified; M19.90 Unspecified osteoarthritis, unspecified site; N18.31 Chronic kidney disease, stage 3a; E03.9 Hypothyroidism, unspecified; K21.9 Gastro-esophageal reflux disease without esophagitis; R31.9 Hematuria, unspecified; R04.0 Epistaxis; Z79.52 Long term (current) use of systemic steroids; Z79.899 Other long term (current) drug therapy; Z85.828 Personal history of other malignant neoplasm of skin; Z87.891 Personal history of nicotine dependence; Z82.49 Family history of ischemic heart disease and other diseases of the circulatory system; Z79.82 Long term (current) use of aspirin; Z91.041 Radiographic dye allergy status
CPT/HCPCS: 36415; 36430; 80048; 80053; 81001; 82607; 82728; 82746; 83540; 83550; 85025; 85045; 85610; 85730; 86850; 86900; 86901; 86920; 99285; J3490; J7512; P9016; P9035

== ENCOUNTER 2020-08-03 16:48 | Emergency (ER) | payer MEDICARE ==
[2020-08-03] MEDS ORDERED: METOPROLOL TARTRATE 50 MG TABLET PO ONE (17:52)
[2020-08-03 18:05] LABS: HEMATOCRIT 31.9 % (36.0-47.0); HEMOGLOBIN 10.8 g/dL (12.0-15.5); MEAN CORPUSCULAR HEMOGLOBIN 28.1 pg (27.0-33.4); MEAN CORPUSCULAR HGB CONC 33.9 g/dL (32.0-36.0); MEAN CORPUSCULAR VOLUME 83 fl (80-97); RED BLOOD COUNT 3.85 10^6/uL (3.72-5.28); RED CELL DISTRIBUTION WIDTH 15.3 % (11.5-14.0); WHITE BLOOD COUNT 6.3 10^3/uL (4.0-10.5)
[2020-08-03 18:16] LABS: ALBUMIN 3.3 g/dL (3.5-5.0); ALKALINE PHOSPHATASE 55 U/L (38-126); ANION GAP 8 (5-19); ASPARTATE AMINO TRANSFERASE 24 U/L (14-36); BILIRUBIN,DIRECT 0.1 mg/dL (0.0-0.4); BILIRUBIN,TOTAL 0.7 mg/dL (0.2-1.3); BLOOD UREA NITROGEN 63 mg/dL (7-20); CALCIUM 8.6 mg/dL (8.4-10.2); CARBON DIOXIDE 21 mmol/L (22-30); CHLORIDE 106 mmol/L (98-107); CREATINE KINASE 30 U/L (30-135); GLUCOSE 156 mg/dL (75-110); POTASSIUM 4.5 mmol/L (3.6-5.0); TOTAL PROTEIN 6.3 g/dL (6.3-8.2)
[2020-08-03 18:35] LABS: TROPONIN I 0.029 ng/mL
[2020-08-03 18:48] LABS: PLATELET COUNT 31 10^3/uL (150-450)
[2020-08-03 18:50] LABS: ABSOLUTE LYMPHOCYTES# (MANUAL) 0.6 10^3/uL (0.5-4.7); ABSOLUTE MONOCYTES # (MANUAL) 0.6 10^3/uL (0.1-1.4); BASOPHILS % (MANUAL) 1 % (0-2); EOSINOPHILS % (MANUAL) 0 % (0-6); LYMPHOCYTES % (MANUAL) 9 % (13-45); MONOCYTES % (MANUAL) 9 % (3-13); SEGMENTED NEUTROPHILS % (MAN) 81 % (42-78); TOTAL CELLS COUNTED 100
[2020-08-03 18:53] LABS: ANISOCYTOSIS SLIGHT; OVALOCYTES 1+; PLATELET COMMENT DECREASED; TEAR DROP CELLS 1+
--- NOTE | 2020-08-03 19:36 | EKG REPORT ---
SEVERITY:- ABNORMAL ECG - SINUS RHYTHM LVH WITH SECONDARY REPOLARIZATION ABNORMALITY : Confirmed by: Marvin Valles MD 03-Aug-2020 19:35:11
[2020-08-03 19:38] VITALS: BP 208/92
--- NOTE | 2020-08-03 20:04 | ER Document Report ---
Entered by TONY RIVERA SCRIBE 08/03/20 1804 Acting as scribe for:HALLEY SALAZAR, DO ED General - General Chief Complaint: High Blood Pressure Stated Complaint: HIGH BLOOD PRESSURE Time Seen by Provider: 08/03/20 17:46 Primary Care Provider: AMEE GRIMM FNP-C [Primary Care Provider] - 08/05/20 Information source: Patient, [facility] Records Notes: This 64 year old female patient presents to the emergency department today with complaints of high blood pressure. Patient states at 3pm today she checked her blood pressure at home and it was 204/102, then she called her PCP and was told to check again. Patient states it was 198/98 and was told to visit the ED. Barbara ent states she was admitted in the hospital from 07/27-07/31 this month for pancytopenia, lupus, and dilated cardiomyopathy, and patient's cardiac cath was put on hold, also because her platelets were low. Patient states she was put on prednisone and stopped taking plaquenil, but was put back on it last week. Denies chest pain, shortness of breath, any recent falls, or problems with bleeding. Patient states she takes metoprolol for her HTN and stopped taking aspirin. Patient reports a follow up appointment on 08/16 next month. TRAVEL OUTSIDE OF THE [place] IN LAST 30 DAYS: No - Related Data Allergies/Adverse Reactions: Iodinated Contrast Media Allergy (Verified 07/27/20 10:21) Generalized rash Past Medical History - General Information source: Patient, [facility] Records - Social History Smoking Status: Former Smoker Cigarette use (# per day): No Frequency of alcohol use: None Drug Abuse: None Family History: Hypertension Patient has homicidal ideation: No - Past Medical History Cardiac Medical History: Reports: Hx Hypertension Endocrine Medical History: Reports: Hx Hypothyroidism Malignancy Medical History: Reports: Hx Skin Cancer GI Medical History: Reports: Hx Gastroesophageal Reflux Disease Musculoskeletal Medical History: Reports Hx Arthritis, Reports Hx Systemic Lupus Erythematosus Past Surgical History: Reports: Hx Hysterectomy, Hx Whipple, Other - skin cancer removal - Immunizations Hx Diphtheria, Pertussis, Tetanus Vaccination: No Review of Systems - Review of Systems Constitutional: No symptoms reported EENT: No symptoms reported Cardiovascular: See HPI, Other - high blood pressure. denies: Chest pain Respiratory: See HPI. denies: Short of breath Gastrointestinal: No symptoms reported Genitourinary: No symptoms reported Female Genitourinary: No symptoms reported Musculoskeletal: No symptoms reported Skin: No symptoms reported Hematologic/Lymphatic: See HPI Neurological/Psychological: No symptoms reported -: Yes All other systems reviewed and negative Physical Exam - Vital signs Vitals: Temp Pulse Resp BP Pulse Ox 97.2 F 65 18 196/98 H 98 08/03/20 16:57 08/03/20 16:57 08/03/20 16:57 08/03/20 16:57 08/03/20 16:57 - General General appearance: Appears well, Alert - HEENT Head: Normocephalic, Atraumatic Eyes: Normal Pupils: PERRL - Respiratory Respiratory status: No respiratory distress Chest status: Nontender Breath sounds: Normal Chest palpation: Normal - Cardiovascular Rhythm: Regular Heart sounds: Normal auscultation Murmur: No - Abdominal Inspection: Normal Distension: No distension Bowel sounds: Normal Tenderness: Nontender - Extremities General upper extremity: Normal inspection, Normal ROM General lower extremity: Normal inspection, Normal ROM. No: Edema - Neurological Neuro grossly intact: Yes Cognition: Normal Orientation: AAOx4 Benjamin Coma Scale Eye Opening: Spontaneous Benjamin Coma Scale Verbal: Oriented Benjamin Coma Scale Motor: Obeys Commands Benjamin Coma Scale Total: 15 Speech: Normal Sensory: Normal - Psychological Associated symptoms: Normal affect, Normal mood - Skin Skin Temperature: Warm Skin Moisture: Dry Skin Color: Ecchymosis Course - Re-evaluation Re-evalutation: 08/04/20 02:38 MDM 64 year old female with pancytopenia recently is here with elevated BP but no symptoms. Her blood work is reassuring, Plt count stable as is H/H. No ches t pain and no sob. Very mild gradual onset headache that is better as BP is down a bit. She has hematology follow up and we discussed return here precautions - worsening headache, vomiting, bleeding, chest pain or other problems or concerns. BP better here after treatment and have increased metop rolol and furosemide for the short term. - Vital Signs Vital signs: Temp Pulse Resp BP Pulse Ox 97.2 F 65 17 208/92 H 98 08/03/20 16:57 08/03/20 16:57 08/03/20 19:01 08/03/20 19:01 08/03/20 19:01 - Laboratory Result Diagrams: 08/03/20 17:45 08/03/20 17:45 Laboratory results interpreted by me: 08/03/20 08/03/20 17:45 17:45 Hgb 10.8 L Hct 31.9 L RDW 15.3 H Plt Count 31 L Seg Neuts % (Manual) 81 H Lymphocytes % (Manual) 9 L Sodium 134.7 L Carbon Dioxide 21 L BUN 63 H Est GFR (MDRD) Non-Af 52 L Glucose 156 H Albumin 3.3 L - Diagnostic Test Radiology reviewed: Image reviewed, Reports reviewed - EKG Interpretation by Me EKG shows normal: Sinus rhythm Rate: Normal Rhythm: NSR - NSR NL [place] 64 BPM repol ab LVH no st elevaiton or depression my interpretation. Discharge - Discharge Clinical Impression: Acute ITP Hypertension Qualifiers: Hypertension type: unspecified Qualified Code(s): I10 - Essential (primary) hypertension Anemia Qualifiers: Anemia type: other cause Other causes of anemia: other cause, not classified Qualified Code(s): D64.89 - Other specified anemias Condition: Stable Disposition: HOME, SELF-CARE Instructions: Beta Blockers ([facility]), High Blood Pressure ([facility]), High Blood Pressure, Requiring Treatment ([facility]), Thrombocytopenia ([facility]) Additional Instructions: See your doctor routinely in follow up. Continue the prednisone. Please return here for chest pain, shortness of breath or other concerns. Adjust your medicine as follows: Take 10 mg furosemide at 4 pm daily while on the prednisone. Take 25 mg metoprolol 12 hours after your 50 mg daily dose that you are currently taking. Keep your hematology appointment next month. Medicine has been sent to [facility]. Prescriptions: Furosemide [Lasix] 10 mg PO DAILY #30 tablet Metoprolol Tartrate [Lopressor 25 mg Tablet] 25 mg PO DAILY #30 tab Referrals: AMEE GRIMM FNP-C [Primary Care Provider] - 08/05/20 I personally performed the services described in the documentation, reviewed and edited the documentation which was dictated to the scribe in my presence, and it accurately records my words and actions.
== END 2020-08-03 20:38 | disposition home or self-care (01) ==
LOC: ER 16:48
DX: I10 Essential (primary) hypertension (principal); I42.0 Dilated cardiomyopathy; R51.9 Headache, unspecified; D64.9 Anemia, unspecified; D69.3 Immune thrombocytopenic purpura; M32.9 Systemic lupus erythematosus, unspecified; Z79.899 Other long term (current) drug therapy; Z87.891 Personal history of nicotine dependence; Z91.041 Radiographic dye allergy status
CPT/HCPCS: 93005; 99284; 36415; 82553; 82550; 85025; 80053; 84484; 93010; A9270

== ENCOUNTER 2020-08-23 08:15 | Inpatient (IN) | payer MEDICARE ==
[2020-08-23] MEDS ORDERED: ASPIRIN 325 MG TABLET PO ONE (09:23)
[2020-08-23] MEDS ORDERED: DILTIAZEM HCL INJ 25 MG/5 ML VIAL IV ONE (09:24)
[2020-08-23] MEDS ORDERED: DILTIAZEM HCL/D5W 125 MG/125 ML RTUINJ IV PRN (09:24)
[2020-08-23 09:26] LABS: ANION GAP 8 (5-19); BLOOD UREA NITROGEN 59 mg/dL (7-20); CALCIUM 8.9 mg/dL (8.4-10.2); CARBON DIOXIDE 28 mmol/L (22-30); CHLORIDE 98 mmol/L (98-107); GLUCOSE 157 mg/dL (75-110); POTASSIUM 4.3 mmol/L (3.6-5.0)
--- NOTE | 2020-08-23 09:26 | ER Document Report ---
ED Cardiac - General Chief Complaint: Chest Pain Stated Complaint: CHEST PAIN SHORTNESS OF BREATH Time Seen by Provider: 08/23/20 08:45 Primary Care Provider: AMEE GRIMM FNP-C [Primary Care Provider] - Follow up as needed Notes: HPI: 64-year-old female with past medical history as recorded including recently been diagnosed with congestive heart failure who presents today with 1 week of some worsening shortness of breath. No fevers. Some intermittent left-sided nonradiating chest discomfort. Nausea without vomiting or diarrhea. Patient is seen by the tagman Dr. Wren. No history of atrial fibrillation. Patient presents stating worsening shortness of breath with exertion. Currently no chest pain. Increased lower extremity swelling. ROS: See HPI All other review of systems reviewed and otherwise negative Reviewed vital signs and nursing note as charted by RN. PHYSICAL EXAM: CONSTITUTIONAL: Alert and oriented and responds appropriately to questions. Well-appearing; well-nourished HEAD: Normocephalic; atraumatic EYES: PERRL; Conjunctivae clear, sclerae non-icteric ENT: Normal nose; no rhinorrhea; moist mucous membranes; pharynx without lesions noted NECK: Supple without meningismus; non-tender; no cervical lymphadenopathy, no masses CARD: Tachycardic and irregular; no murmurs; symmetric distal pulses RESP: Normal chest excursion without splinting or tachypnea; breath sounds clear and equal bilaterally; minimal rales with no wheezing or rhonchi ABD/GI: Normal bowel sounds; non-distended; soft, non-tender BACK: The back appears normal and is non-tender to palpation EXT: Normal ROM in all joints; non-tender to palpation; 2+ bilateral lower extremity edema SKIN: No acute lesions noted NEURO: CN 2-12 intact; 5/5 bilateral upper and lower extremity strength with sensation intact to light touch PSYCH: The patient's mood and manner are appropriate. Grooming and personal hygiene are appropriate. TRAVEL OUTSIDE OF THE [place] IN LAST 30 DAYS: No - Related Data Allergies/Adverse Reactions: Iodinated Contrast Media Allergy (Verified 08/23/20 08:46) Generalized rash Home Medications: prednisone. entresto. furosemide. metoprol tar Past Medical History - Social History Smoking Status: Former Smoker Chew tobacco use (# tins/day): No Frequency of alcohol use: None Drug Abuse: None Family History: Hypertension Patient has homicidal ideation: No - Past Medical History Cardiac Medical History: Reports: Hx Hypertension Denies: Hx Coronary Artery Disease, Hx DVT, Hx Heart Attack, Hx Hypercholesterolemia, Hx Pulmonary Embolism Pulmonary Medical History: Denies: Hx Asthma, Hx COPD Neurological Medical History: Denies: Hx Cerebrovascular Accident, Hx Seizures Endocrine Medical History: Reports: Hx Hypothyroidism. Denies: Hx Diabetes Mellitus Type 1, Hx Diabetes Mellitus Type 2, Hx Hyperthyroidism Malignancy Medical History: Reports: Hx Skin Cancer GI Medical History: Reports: Hx Gastroesophageal Reflux Disease. Denies: Hx Cirrhosis, Hx Hepatitis, Hx Hiatal Hernia, Hx Ulcer Musculoskeletal Medical History: Reports Hx Arthritis, Denies Hx Fibromyalgia, Reports Hx Systemic Lupus Erythematosus Skin Medical History: Denies Hx Eczema, Denies Hx Psoriasis Psychiatric Medical History: Denies: Hx Depression Infectious Medical History: Denies: Hx Hepatitis Past Surgical History: Reports: Hx Hysterectomy, Hx Whipple, Other - skin cancer removal. Denies: Hx Mastectomy, Hx Open Heart Surgery, Hx Pacemaker - Immunizations Hx Diphtheria, Pertussis, Tetanus Vaccination: No Physical Exam - Vital signs Vitals: Resp 26 H 08/23/20 08:40 Course - Re-evaluation Re-evalutation: Given the above history and physical examination, we will obtain basic labs, place the patient on the monitor, and reassess. I would like to evaluate for the possibility of ACS. Patient looks to be in atrial fibrillation with rapid ventricular response. She states no history of this previously. She is current ly chest pain-free. Lower extremity edema is present. Concern about the worsening congestive heart failure secondary to rate related tachycardia. We will slow the rate and reassess. EKG shows a heart of 138, atrial fibrillation with rapid ventricular response. Slight ST depressions in leads I, II, and aVL. Most likely rate related 08/23/20 11:21 Labs as recorded. No obvious overt heart failure on x-ray of the chest. Troponin as recorded. Patient currently has no chest pain. Heart rate is improved on the diltiazem drip. Awaiting CBC. The first draw hemolyzed. 08/23/20 12:26 Hemoglobin as recorded. This is slight drop from previous. I did perform a digital rectal exam showing some nontender thrombosed external hemorrhoids with no gross blood with Hemoccult negative stool. Patient denies any shortness of breath that the heart rate has improved. I reviewed the patient's previous past medical charting it appears that the patient was admitted 1 month ago secondary to ITP with a very low platelet count. She was supposed to have an outpatient cardiac catheterization but the platelets were too low. She was admitted and found to have some heart failure. She has a history of lupus. Patient did not alert me of any of this upon arrival. I believe this explains the patient's Hemoccult negative stool with a slightly lower hemoglobin than previously recorded. Platelets here today as recorded. Heart rate has improved. Patient will be admitted to the hospital for further evaluation and treatment. 08/23/20 12:45 Platelets today as recorded. I did call and speak directly to the tagman Dr. Wren about the patient. I spoke to the hospitalist she would like me to obtain a CTA of the chest. This has been ordered. - Vital Signs Vital signs: Temp Pulse Resp BP Pulse Ox 19 132/106 H 98 08/23/20 10:30 08/23/20 10:30 08/23/20 09:01 - Laboratory Results Result Diagrams: 08/23/20 11:12 08/23/20 08:36 Laboratory Results Interpreted: 08/23/20 08/23/20 08/23/20 08:36 08:36 11:12 RBC 2.98 L Hgb 8.5 L Hct 25.5 L RDW 17.7 H Plt Count 66 L Seg Neuts % (Manual) 83 H Lymphocytes % (Manual) 12 L Monocytes % (Manual) 2 L Sodium 134.2 L BUN 59 H Est GFR (MDRD) Non-Af 51 L Glucose 157 H NT-Pro-B Natriuret Pep 369351 H Critical Laboratory Results Reviewed: Yes Attending or Supervising Physician who Reviewed Labs: Tamara - Radiology Results Critical Radiology Results Reviewed: No Critical Results Critical Care Note - Critical Care Note Total time excluding time spent on procedures (mins): 40 Discharge - Discharge Clinical Impression: Atrial fibrillation with RVR, Lower extremity edema, Thrombocytopenia Condition: Fair Disposition: ADMITTED INPATIENT Admitting Provider: Nyasia (Hospitalist) Unit Admitted: IMCU Referrals: AMEE GRIMM FNP-C [Primary Care Provider] - Follow up as needed
[2020-08-23 09:54] LABS: TROPONIN I 0.071 ng/mL
--- NOTE | 2020-08-23 09:59 | RADIOLOGY REPORT (SQ) ---
EXAM DESCRIPTION: CHEST SINGLE VIEW IMAGES COMPLETED DATE/TIME: 08/23/2020 9:19 am REASON FOR STUDY: 19; CP COMPARISON: 06/22/2020 EXAM PARAMETERS: NUMBER OF VIEWS: One view. TECHNIQUE: Single frontal radiographic view of the chest acquired. RADIATION DOSE: NA LIMITATIONS: None. FINDINGS: LUNGS AND PLEURA: Chronic blunting of both costophrenic angles. No infiltrate or pneumoth orax. MEDIASTINUM AND HILAR STRUCTURES: Stable. HEART AND VASCULAR STRUCTURES: Stable heart size. Normal vasculature. BONES: No acute findings. HARDWARE: None in the chest. OTHER: No other significant finding. IMPRESSION: NO ACUTE RADIOGRAPHIC FINDING IN THE CHEST. TECHNICAL DOCUMENTATION: JOB ID: [id number] 2010 [email or web address]- All Rights Reserved Reading location - IP/workstation name: [email or web address]
[2020-08-23] MEDS ORDERED: FUROSEMIDE INJ/PF 40 MG/4 ML SDV IV ONE (10:16)
[2020-08-23 11:37] LABS: HEMATOCRIT 25.5 % (36.0-47.0); HEMOGLOBIN 8.5 g/dL (12.0-15.5); MEAN CORPUSCULAR HEMOGLOBIN 28.7 pg (27.0-33.4); MEAN CORPUSCULAR HGB CONC 33.5 g/dL (32.0-36.0); MEAN CORPUSCULAR VOLUME 86 fl (80-97); RED BLOOD COUNT 2.98 10^6/uL (3.72-5.28); RED CELL DISTRIBUTION WIDTH 17.7 % (11.5-14.0); WHITE BLOOD COUNT 6.8 10^3/uL (4.0-10.5)
[2020-08-23 12:05] LABS: PLATELET COUNT 66 10^3/uL (150-450)
[2020-08-23 12:09] LABS: ABSOLUTE LYMPHOCYTES# (MANUAL) 0.8 10^3/uL (0.5-4.7); ABSOLUTE MONOCYTES # (MANUAL) 0.1 10^3/uL (0.1-1.4); BASOPHILS % (MANUAL) 0 % (0-2); EOSINOPHILS % (MANUAL) 3 % (0-6); LYMPHOCYTES % (MANUAL) 12 % (13-45); MONOCYTES % (MANUAL) 2 % (3-13); SEGMENTED NEUTROPHILS % (MAN) 83 % (42-78); TOTAL CELLS COUNTED 100
[2020-08-23 12:14] LABS: ANISOCYTOSIS 1+; OVALOCYTES 1+; PLATELET COMMENT DECREASED; POIKILOCYTOSIS 1+; TEAR DROP CELLS 1+
[2020-08-23 12:15] LABS: POLYCHROMASIA 1+
--- NOTE | 2020-08-23 14:20 | EKG REPORT ---
SEVERITY:- ABNORMAL ECG - ATRIAL FIBRILLATION, V-RATE 86-174 LVH WITH SECONDARY REPOLARIZATION ABNORMALITY BORDERLINE PROLONGED QT INTERVAL : Confirmed by: Stephany Gifford MD 23-Aug-2020 14:18:15
[2020-08-23] MEDS ORDERED: DIPHENHYDRAMINE HCL 50 MG/ML VIAL IV ONE (14:30)
[2020-08-23] MEDS ORDERED: HYDROCORTISONE SOD SUCCINATE INJ/PF 100 MG/2 ML SDV IV ONE (14:30)
--- NOTE | 2020-08-23 15:57 | RADIOLOGY REPORT (SQ) ---
EXAM DESCRIPTION: CTA CHEST IMAGES COMPLETED DATE/TIME: 08/23/2020 3:37 pm REASON FOR STUDY: 19; sob COMPARISON: 06/23/2020 TECHNIQUE: CT scan of the chest performed using helical scanning technique with dynamic intravenous contrast injection. Images reviewed with lung, soft tissue and bone windows. Reconstructed coronal and sagittal MPR images reviewed. Additional 3 dimensional post-processing performed to develop Maximal Intensity Projection images (SC P). All images stored on PACS. All CT scanners at this facility use dose modulation, iterative reconstruction, and/or weight based d osing when appropriate to reduce radiation dose to as low as reasonably achievable (ALARA). [facility]: Dose Right [facility]: CareDose [facility]: Dose Right [facility]: Teradose 4D [facility]: Smart Touchotel CONTRAST TYPE AND DOSE: contrast/concentration: Isovue 350.00 mmol/ml; Total Contrast Delivered: 61. 5 ml; Total Saline Delivered: 77.8 ml RENAL FUNCTION: GFR > 60. RADIATION DOSE: CT Rad equipment meets quality standard of care and radiation dose reduction techniq ues were employed. CTDIvol: 9.2 - 33.8 mGy. DLP: 377 mGy-cm. . LIMITATIONS: None. FINDINGS: LUNGS AND PLEURA: Trace pleural effusions, right greater than left. Unchanged diffuse int erlobular septal thickening. Unchanged peripheral coalescing nodular pattern in the right lower lobe . 11 mm ground-glass nodule in the middle lobe on image 31 unchanged. AORTA AND GREAT VESSELS: No aneurysm. Contrast bolus not optimized for the aorta. HEART: No pericardial effusion. Cardiomegaly. PULMONARY ARTERIES: No emboli visualized in the main pulmonary arteries or the segmental branches. HILAR AND MEDIASTINAL STRUCTURES: No identified masses or abnormal nodes. HARDWARE: None in the chest. UPPER ABDOMEN: No significant findings. Limited exam. THYROID AND OTHER SOFT TISSUES: No masses. No adenopathy. BONES: No acute or significant finding. 3D MIPS: Confirm above findings. OTHER: No other significant finding. IMPRESSION: 1. No PE. 2. Chronic versus recurrent reticulonodular pattern in the right lower lobe could represent infection or aspiration. Suspect a background of chronic CHF. COMMENT: Quality ID # [id number]: Final reports with documentation of one or more dose reduction techniques (e.g., Automated exposure control, adjustment of the mA and/or kV according to patient size, use of iterative reconstruction technique) TECHNICAL DOCUMENTATION: JOB ID: [id number] 2010 [employer]- All Rights Reserved Reading location - IP/workstation name: [email or web address]
[2020-08-23] MEDS ORDERED: ONDANSETRON HCL INJ/PF 4 MG/2 ML SDV IV PRN (16:18)
[2020-08-23] MEDS ORDERED: MAG HYDROX/AL HYDROX/SIMETH SUSP 30 ML UDCUP PO PRN (16:18)
--- NOTE | 2020-08-23 17:06 | PDOC H&P ---
History of Present Illness Admission Date/PCP: 08/23/20 13:14 VALDEMAR CHAVEZ-Nida Patient complains of: SOB, CP History of Present Illness: DANDRE SANTOS is a 64 year old female with PMH of SLE, CHF, HTN, HLD, hypothyroidism, and ITP on high dose steroids who presents with SOB and CP. She reports 1 week history of progressively worsening R>L LE edema, SOB, ARORA. Her SOB has been progressively worsening throughout the week. This morning, she was walking from her room to the bathroom (short distance) and felt like she could not breathe because the SOB was so severe, so she decided to come to the ED. SOB was associated with L-sided chest pain that goes away when she rests. She has had occasional palpitations over the last week as well. She denies sy ncope, pre-syncope, orthopnea. She has been seeing Dr. Wren (cardiology) as outpatient and was planned to have an outpatient LHC for new-onset CHF, but this has been on hold due to low platelet count (ITP). She is followed by Dr. Barreto for ITP, and states that her platelets have been improving with steroid therapy (plt count was in the 90s last week). She is followed by Dr. Michael Obrien for rheumatology, but has not seen him for some months. In the ED, she was found to have AFRVR. She was started on a diltiazem ggt. HR currently <110. During my assessment, she denied any ongoing SOB or CP. Past Medical History Cardiac Medical History: Reports: Atrial Fibrillation, Congestive Heart Failure, Hyperlipidema, Hypertension Denies: Coronary Artery Disease, DVT, Myocardial Infarction, Pulmonary Embolism Pulmonary Medical History: Denies: Asthma, Chronic Obstructive Pulmonary Disease (COPD) Neurological Medical History: Denies: Seizures Endocrine Medical History: Reports: Hypothyroidism Denies: Diabetes Mellitus Type 1, Diabetes Mellitus Type 2, Hyperthyroidism Malignancy Medical History: Reports: Skin Cancer GI Medical History: Reports: Gastroesophageal Reflux Disease Denies: Cirrhosis, Hepatitis, Hiatal Hernia Musculoskeltal Medical History: Reports: Arthritis Denies: Fibromyalgia Skin Medical History: Denies: Eczema, Psoriasis Psychiatric Medical History: Denies: Depression Hematology: Reports: Anemia - Chronic, Other - ITP Denies: Sickle Cell Disease, Bleeding Tendencies Past Surgical History Past Surgical History: Reports: Hysterectomy, Other - skin cancer removal Denies: Amputation, Mastectomy, Pacemaker Social History Information Source: Patient Smoking Status: Former Smoker Electronic Cigarette use?: No Frequency of Alcohol Use: None Hx Recreational Drug Use: No Drugs: None Hx Prescription Drug Abuse: No - Advance Directive Resuscitation Status: Do Not Resuscitate Family History Family History: Reviewed & Not Pertinent, Hypertension Parental Family History Reviewed: Yes Children Family History Reviewed: Yes Sibling(s) Family History Reviewed.: Yes Medication/Allergy Home Medications: Levothyroxine Sodium [Synthroid] 200 mcg PO Q6AM 06/14/20 Multivitamin [Tab-A-Carter (Multiple Vitamin) Tablet] 1 tab PO DAILY 06/23/20 Atorvastatin Calcium [Lipitor 40 mg Tablet] 40 mg PO QHS 30 Days #30 tablet 06/24/20 Furosemide [Lasix 20 mg Tablet] 20 mg PO QAM 14 Days #30 tablet 06/24/20 Sacubitril/Valsartan [Entresto 24 mg/26 mg Tablet] 1 tab PO BID 30 Days #60 tablet 06/24/20 Calcium Carbonate/Vitamin D3 [Calcium 600-Vit D3 400 Caplet] 1 tab-cap PO DAILY 07/27/20 Acetaminophen [Tylenol 325 mg Tablet] 650 mg PO Q4HP PRN tablet 07/31/20 Azathioprine [Imuran] 50 mg PO TID 08/23/20 Furosemide [Lasix 20 mg Tablet] 10 mg PO QPM 08/23/20 Metoprolol Tartrate [Lopressor 50 mg Tablet] 50 mg PO QAM 08/23/20 Metoprolol Tartrate [Lopressor] 25 mg PO QPM 08/23/20 Prednisone [Deltasone 20 mg Tablet] 40 mg PO QAM 08/23/20 Allergies/Adverse Reactions: Iodinated Contrast Media Allergy (Verified 08/23/20 08:46) Generalized rash Review of Systems Constitutional: PRESENT: fatigue. ABSENT: fever(s) Eyes: ABSENT: visual disturbances Nose, Mouth, and Throat: ABSENT: sore throat Cardiovascular: PRESENT: chest pain, dyspnea on exertion, edema, palpitations. ABSENT: orthropnea Respiratory: PRESENT: dyspnea. ABSENT: cough, sputum Gastrointestinal: PRESENT: abdominal pain, bloating. ABSENT: nausea, vomiting Genitourinary: ABSENT: dysuria Musculoskeletal: ABSENT: back pain, muscle weakness Neurological: ABSENT: syncope, vertigo, weakness Hematologic/Lymphatic: PRESENT: easy bleeding, easy bruising Physical Exam Vital Signs: Temp Pulse Resp BP Pulse Ox 14 154/115 H 96 08/23/20 13:16 08/23/20 13:16 08/23/20 13:16 Intake & Output 08/22/20 08/23/20 08/24/20 06:59 06:59 06:59 Intake Total 50 Output Total 300 Balance -250 Weight 86.9 kg General appearance: PRESENT: no acute distress, cooperative, obese Head exam: PRESENT: atraumatic Eye exam: ABSENT: scleral icterus Mouth exam: PRESENT: moist Throat exam: ABSENT: post pharyngeal erythema Neck exam: ABSENT: JVD Respiratory exam: PRESENT: clear to auscultation beth, unlabored. ABSENT: tachypnea Cardiovascular exam: PRESENT: irregular rhythm, tachycardia GI/Abdominal exam: PRESENT: distended, soft. ABSENT: guarding, rebound, rigid, tenderness Gentrourinary exam: ABSENT: indwelling catheter Extremities exam: PRESENT: +2 edema Musculoskeletal exam: PRESENT: ambulatory Neurological exam: PRESENT: alert, awake, oriented to person, oriented to place, oriented to time, oriented to situation Psychiatric exam: PRESENT: appropriate affect Skin exam: PRESENT: rash - bilateral upper extremities, papular non-blanching, other - bruising on all extremities. ABSENT: urticaria, vesicles Results Laboratory Results: 08/23/20 11:12 08/23/20 08:36 08/23/20 08/23/20 08/23/20 08:36 08:36 08:36 WBC Cancelled RBC Cancelled Hgb Cancelled Hct Cancelled MCV Cancelled MCH Cancelled MCHC Cancelled RDW Cancelled Plt Count Cancelled Seg Neutrophils % Cancelled Sodium 134.2 L Potassium 4.3 Chloride 98 Carbon Dioxide 28 Anion Gap 8 BUN 59 H Creatinine 1.08 Est GFR ( Amer) > 60 Glucose 157 H Calcium 8.9 TSH 0.64 08/23/20 11:12 WBC 6.8 RBC 2.98 L Hgb 8.5 L Hct 25.5 L MCV 86 MCH 28.7 MCHC 33.5 RDW 17.7 H Plt Count 66 L Seg Neutrophils % Not Reportable Sodium Potassium Chloride Carbon Dioxide Anion Gap BUN Creatinine Est GFR ( Amer) Glucose Calcium TSH 08/23/20 08:36 Troponin I 0.071 NT-Pro-B Natriuret Pep 389400 H Impressions: Chest X-Ray 08/23/20 08:48 IMPRESSION: NO ACUTE RADIOGRAPHIC FINDING IN THE CHEST. Chest/Abdomen CTA 08/23/20 12:47 IMPRESSION: 1. No PE. 2. Chronic versus recurrent reticulonodular pattern in the right lower lobe could represent infection or aspiration. Suspect a background of chronic CHF. Assessment and Plan - Diagnosis (1) New onset atrial fibrillation Is this a current diagnosis for this admission?: Yes (2) Right heart failure Qualifiers: Heart failure chronicity: acute on chronic Qualified Code(s): I50.813 - Acute on chronic right heart failure Is this a current diagnosis for this admission?: Yes (3) Chronic ITP (idiopathic thrombocytopenia) Is this a current diagnosis for this admission?: Yes (4) Atrial fibrillation with RVR Is this a current diagnosis for this admission?: Yes (5) Lower extremity edema Is this a current diagnosis for this admission?: Yes (6) Thrombocytopenia Is this a current diagnosis for this admission?: Yes (7) Acute CHF (congestive heart failure) Qualifiers: Heart failure type: unspecified Qualified Code(s): I50.9 - Heart failure, unspecified Is this a current diagnosis for this admission?: Yes (8) Anemia Qualifiers: Anemia type: other cause Other causes of anemia: other cause, not classified Qualified Code(s): D64.89 - Other specified anemias Is this a current diagnosis for this admission?: Yes (9) Hypertension Qualifiers: Hypertension type: essential hypertension Qualified Code(s): I10 - Essential (primary) hypertension Is this a current diagnosis for this admission?: Yes (10) Hypothyroidism Qualifiers: Hypothyroidism type: acquired Qualified Code(s): E03.9 - Hypothyroidism, unspecified Is this a current diagnosis for this admission?: Yes (11) Non-ST elevation (NSTEMI) myocardial infarction Is this a current diagnosis for this admission?: Yes (12) Systemic lupus erythematosus arthritis Is this a current diagnosis for this admission?: Yes - Plan Summary Summary: DANDRE SANTOS is a 64 year old female with PMH of SLE, CHF, HTN, HLD, hypothyroidism, and ITP on high dose steroids who presents with progressively worsening SOB and CP x1 week. In the ED, she was found to have AFRVR, acute on chronic CHF exacerbation and NSTEMI. She is being admitted for observation and m edication titration. New-Onset Atrial Fibrillation with RVR - cardiology consulted - telemetry - DC diltiazem and start metoprolol, titrate dose up for goal HR <90 - start Eliquis for anticoagulation (as long as PLTs remain above 50K) Acute on Chronic (likely R-sided) CHF Exacerbation: may be due to AFRVR vs high dose steroids for the last month - TTE ordered - cardiology consulted, would benefit from outpatient L and R heart catheterization - diuresis with Lasix 40 mg IV daily - strict I/O - low sodium diet - elevate legs - daily weight NSTEMI - cardiology consulted - TTE to rule out WMA, check LV EF and RV function - likely due to above diagnoses and anticipate decrease in troponin with diuresis and rate control - recheck troponin Q6H until trending down Thrombocytopenia: due to ITP versus SLE. She has not been taking any medication for control of SLE for the last month and has not seen her family day carer for at least 2 months. I will call her family day carer tomorrow morning to discuss her labs and the rash on her BUE. Discussed outpatient CBC last week with Dr. Barreto; at that time, her WBC was 9.4, HGB 9.5, PLT 96 so all values are decreased on recheck today. This, in conjunction with new rash on her BUE could be due to a SLE flare. - oncology (Dr. Barreto) consulted - continue outpatient steroids with PPI therapy Anemia: thought to be due to SLE. She has no signs/symptoms of an acute bleed. - continue to monitor with daily CBC, especially as we are starting AC Hypothyroidism - continue home Synthroid - Time Time Spent with patient: 35 or more minutes Anticipated Discharge Disposition: Home, Self Care Anticipated Discharge Timeframe: within 48 hours
--- NOTE | 2020-08-23 17:21 | PDOC CONSULTATION ---
Consultation Consult Date: 08/23/20 Provider Consulted: LETTY FORD Consult reason:: Atrial fibrillation RVR History of Present Illness Admission Date/PCP: GLORIA CHAVEZ Patient complains of: Palpitations History of Present Illness: DANDRE SANTOS is a 64 year old female With the following active problems 1. Lupus erythematosus 2. Dyslipidemia 3. Systemic hypertension 4. Dilated cardiomyopathy 5. Pancytopenia 62-year-old lady who was initially admitted to [facility] with hypertensive emergency around June 2020. At that time her blood pressure was optimized. She did not require respiratory support. Prior to discharge an echocardiogram was performed which showed severe LV dysfunction with ejection fraction estimated at 20 to 25%. Based on this we decided to proceed with ischemic evaluation risk factors for coronary artery disease including hypertension, nicotine dependence in remission as well as lupus erythematosus. Preprocedure labs demonstrated pancytopenia and thus cardiac visitation had to be aborted. Subsequently patient was admitted to hospital and was followed by hematology. She responded to therapy. He has not yet arranged cardiac catheterization until the anemia has been corrected as she may require rev ascularization based on cardiac catheterization findings. However patient presented to hospital with palpitations and was found to be in atrial fibrillation rapid ventricular response. Patient is a former smoker. Review of systems positive for palpitations. There is no report of chest pain. Full 11 review of systems was asked. Pertinent positives noted here and in the HPI all other systems are negative. Past Medical History Cardiac Medical History: Reports: Hypertension Denies: Coronary Artery Disease, DVT, Myocardial Infarction, Hyperlipidema, Pulmonary Embolism Pulmonary Medical History: Denies: Asthma, Chronic Obstructive Pulmonary Disease (COPD) Neurological Medical History: Denies: Seizures Endocrine Medical History: Reports: Hypothyroidism Denies: Diabetes Mellitus Type 1, Diabetes Mellitus Type 2, Hyperthyroidism Malignancy Medical History: Reports: Skin Cancer GI Medical History: Reports: Gastroesophageal Reflux Disease Denies: Cirrhosis, Hepatitis, Hiatal Hernia Musculoskeltal Medical History: Reports: Arthritis Denies: Fibromyalgia Skin Medical History: Denies: Eczema, Psoriasis Psychiatric Medical History: Denies: Depression Hematology: Reports: Anemia - Chronic Denies: Sickle Cell Disease, Bleeding Tendencies Past Surgical History Past Surgical History: Reports: Hysterectomy, Other - skin cancer removal Denies: Amputation, Mastectomy, Pacemaker Social History Smoking Status: Former Smoker Electronic Cigarette use?: No Frequency of Alcohol Use: None Hx Recreational Drug Use: No Drugs: None Hx Prescription Drug Abuse: No Family History Family History: Hypertension Parental Family History Reviewed: Yes - No familial illnesses Children Family History Reviewed: NA Sibling(s) Family History Reviewed.: NA Medication/Allergy Home Medications: Levothyroxine Sodium [Synthroid] 200 mcg PO Q6AM 06/14/20 Multivitamin [Tab-A-Carter (Multiple Vitamin) Tablet] 1 tab PO DAILY 06/23/20 Atorvastatin Calcium [Lipitor 40 mg Tablet] 40 mg PO QHS 30 Days #30 tablet 06/24/20 Furosemide [Lasix 20 mg Tablet] 20 mg PO QAM 14 Days #30 tablet 06/24/20 Sacubitril/Valsartan [Entresto 24 mg/26 mg Tablet] 1 tab PO BID 30 Days #60 tab let 06/24/20 Calcium Carbonate/Vitamin D3 [Calcium 600-Vit D3 400 Caplet] 1 tab-cap PO DAILY 07/27/20 Acetaminophen [Tylenol 325 mg Tablet] 650 mg PO Q4HP PRN tablet 07/31/20 Azathioprine [Imuran] 50 mg PO TID 08/23/20 Furosemide [Lasix 20 mg Tablet] 10 mg PO QPM 08/23/20 Metoprolol Tartrate [Lopressor 50 mg Tablet] 50 mg PO QAM 08/23/20 Metoprolol Tartrate [Lopressor] 25 mg PO QPM 08/23/20 Prednisone [Deltasone 20 mg Tablet] 40 mg PO QAM 08/23/20 Allergies/Adverse Reactions: Iodinated Contrast Media Allergy (Verified 08/23/20 08:46) Generalized rash Review of Systems Constitutional: PRESENT: as per HPI Cardiovascular: PRESENT: palpitations Gastrointestinal: ABSENT: as per HPI, abdominal pain, bloating, coffee ground emesis, constipation, diarrhea, dysphagia, heartburn, hematemesis, hematochezia, melena, nausea, vomiting, other Integumentary: ABSENT: as per HPI, diaphoresis, erythema, lesions, pruritus, rash, wounds, other Endocrine: ABSENT: as per HPI, cold intolerance, flushing, heat intolerance, men strual abnormalities, polydipsia, polyphagia, polyuria, other Physical Exam Vital Signs: Temp Pulse Resp BP Pulse Ox 19 132/106 H 98 08/23/20 10:30 08/23/20 10:30 08/23/20 09:01 Intake & Output 08/22/20 08/23/20 08/24/20 06:59 06:59 06:59 Intake Total 5 Output Total 300 Balance -295 Weight 86.9 kg Results Laboratory Results: 08/23/20 11:12 08/23/20 08:36 08/23/20 08/23/20 08/23/20 08:36 08:36 08:36 WBC Cancelled RBC Cancelled Hgb Cancelled Hct Cancelled MCV Cancelled MCH Cancelled MCHC Cancelled RDW Cancelled Plt Count Cancelled Seg Neutrophils % Cancelled Sodium 134.2 L Potassium 4.3 Chloride 98 Carbon Dioxide 28 Anion Gap 8 BUN 59 H Creatinine 1.08 Est GFR ( Amer) > 60 Glucose 157 H Calcium 8.9 TSH 0.64 08/23/20 11:12 WBC 6.8 RBC 2.98 L Hgb 8.5 L Hct 25.5 L MCV 86 MCH 28.7 MCHC 33.5 RDW 17.7 H Plt Count 66 L Seg Neutrophils % Not Reportable Sodium Potassium Chloride Carbon Dioxide Anion Gap BUN Creatinine Est GFR ( Amer) Glucose Calcium TSH 08/23/20 08:36 Troponin I 0.071 NT-Pro-B Natriuret Pep [id number] H EKG Comments: Twelve-lead EKG 08/23/2020. Independently viewed by me. Atrial fibrillation rapid ventricular response 130 bpm, left ventricular hypertrophy with repolarization abnormality, QTC is 497 ms Chest x-ray 08/23/2020 No acute radiographic finding in the chest Transthoracic echocardiogram 06/23/2020 Left ventricle ejection fraction 20% Impressions: Chest X-Ray 08/23/20 08:48 IMPRESSION: NO ACUTE RADIOGRAPHIC FINDING IN THE CHEST. Assessment & Plan - Diagnosis (1) CHF (congestive heart failure), NYHA class II Qualifiers: Congestive heart failure type: systolic Congestive heart failure chronicity: chronic Qualified Code(s): I50.22 - Chronic systolic (congestive) heart failure Is this a current diagnosis for this admission?: Yes Plan: Dilated ischemic cardiomyopathy Chronic systolic congestive heart failure LV dysfunction with ejection fraction approximately 20 to 25% Plan ischemic work-up was aborted due to the finding of pancytopenia Presently patient appears to be volume overloaded probably a reflection of steroid use and volume retention. Continue guideline directed medical therapy for congestive heart failure (2) New onset atrial fibrillation Is this a current diagnosis for this admission?: Yes Plan: New finding of atrial fibrillation Rate control measures Preferentially use beta-blockers given known LV dysfunction Presently ventricular rate is in the low 100s. Would recommend discontinuation of diltiazem. Switch to beta-blockers. Can consider use of digoxin if additional rate control is necessary. If blood pressure permits up titration of beta-zhen would be much more preferable. We will consider systemic anticoagulation in this patient given congestive heart failure and hypertension as well as sex as risk factors. At the moment rate control measures only. - Notes Notes: We had planned on ischemic evaluation for finding of dilated cardiomyopathy. This was aborted due to the finding of anemia. Will discuss with hematology regarding safety in terms of pursuing cardiac catheterization with potential need for antiplatelet agents should obstructive coronary artery disease be found.
[2020-08-23] MEDS: METOPROLOL TARTRATE 25 MG TABLET PO SCH ×2 (17:26→23:24)
[2020-08-23] MEDS: PANTOPRAZOLE SODIUM 40 MG TABLET.DR PO SCH (17:26)
[2020-08-23] MEDS ORDERED: METOPROLOL TARTRATE 50 MG TABLET PO SCH (18:00)
[2020-08-23] MEDS: APIXABAN 5 MG TABLET PO SCH (18:48)
--- NOTE | 2020-08-23 21:23 | RADIOLOGY REPORT (SQ) ---
EXAM DESCRIPTION: VENOUS BILATERAL LOWER 08/23/2020 12:00 AM HAM SAWYER CLINICAL HISTORY: 64 years Female, ble swelling, rule out DVT; ; COMPARISON: None. FINDINGS: Bilateral common femoral, femoral, popliteal, posterior tibial, peroneal, small saphenous, and greater saphenous veins demonstrate normal compressibility and phasicity. Superficial soft tissues show mild soft tissue swelling about both calves. IMPRESSION: No evidence of deep venous thrombosis about either lower extremity.
[2020-08-23] MEDS ORDERED: PREDNISONE 20 MG TABLET PO SCH (22:00)
[2020-08-23] MEDS: ATORVASTATIN CALCIUM 40 MG TABLET PO SCH (22:44)
[2020-08-24] MEDS: PANTOPRAZOLE SODIUM 40 MG TABLET.DR PO SCH ×2 (05:21→17:11)
[2020-08-24] MEDS: METOPROLOL TARTRATE 25 MG TABLET PO SCH (05:21)
[2020-08-24 05:39] LABS: HEMATOCRIT 25.1 % (36.0-47.0); HEMOGLOBIN 8.5 g/dL (12.0-15.5); MEAN CORPUSCULAR HEMOGLOBIN 29.1 pg (27.0-33.4); MEAN CORPUSCULAR HGB CONC 33.8 g/dL (32.0-36.0); MEAN CORPUSCULAR VOLUME 86 fl (80-97); RED BLOOD COUNT 2.92 10^6/uL (3.72-5.28); RED CELL DISTRIBUTION WIDTH 17.4 % (11.5-14.0); WHITE BLOOD COUNT 5.2 10^3/uL (4.0-10.5)
[2020-08-24 05:57] LABS: ANION GAP 8 (5-19); BLOOD UREA NITROGEN 61 mg/dL (7-20); CALCIUM 8.6 mg/dL (8.4-10.2); CARBON DIOXIDE 25 mmol/L (22-30); CHLORIDE 101 mmol/L (98-107); GLUCOSE 187 mg/dL (75-110); POTASSIUM 4.7 mmol/L (3.6-5.0)
[2020-08-24 06:17] LABS: PLATELET COUNT 67 10^3/uL (150-450)
--- NOTE | 2020-08-24 07:13 | XCELERA REPORT ---
[address] [address] Transthoracic Echocardiogram Report Name: DANDRE SANTOS Age: 64 yrs Gender: Female : 1955 Patient Status: Inpatient Patient Location: [place] [address]^A Study Date: 08/23/2020 07:52 PM History: CHF Height: 63 in Weight: 191 lb BSA: 1.9 m2 Procedure: A complete two-dimensional transthoracic echocardiogram was performed (2D, M-mode, spectral and color flow Doppler). The study was technically difficult with many images being suboptimal in quality. Reason For Study: concern for right-sided CHF +/- RV strain Previous Evaluation: A previous study was performed on 06/23/2020 LVEF 25%. Ordering Physician: THANH SPEARS Performed By: Shaylee Romero Interpretation Summary Left ventricular systolic function is moderate to severely reduced. The Ejection Fraction estimate is 20-25% The right ventricular systolic function is mild to moderately reduced. There is a mild to moderate amount of mitral regurgitation There is no aortic valve stenosis There is a mild amount of tricuspid regurgitation Minimal pericardial effusion. MMode/2D Measurements & Calculations RVDd: 2.5 cm LVIDd: 6.0 cm FS: 13.2 % Ao root diam: 2.9 cm IVSd: 0.97 cm LVIDs: 5.2 cm EDV(Teich): Ao root area: LVPWd: 1.4 cm 182.8 ml 6.5 cm2 ESV(Teich): LA dimension: 5.1 cm 132.0 ml EF(Teich): 27.8 % LVOT diam: 2.1 cm LVLd ap4: 6.5 cm SV(MOD-sp4): LVOT area: EDV(MOD-sp4): 21.0 ml 88.0 ml 3.4 cm2 LVLs ap4: 6.2 cm ESV(MOD-sp4): 67.0 ml EF(MOD-sp4): 23.9 % Doppler Measurements & Calculations MV E max mikie: MV P1/2t max mikie: Ao V2 max: AI max mikie: 136.7 cm/sec 144.2 cm/sec 242.4 cm/sec 488.7 cm/sec MV A max mikie: MV P1/2t: 62.2 msec Ao max PG: AI max P.6 cm/sec MVA(P1/2t): 3.5 cm2 23.5 mmHg 95.5 mmHg MV E/A: 2.0 MV dec slope: Ao V2 mean: AI dec slope: 679.0 cm/sec2 120.8 cm/sec 185.1 cm/sec2 MV dec time: 0.19 secAo mean PG: AI P1/2t: 7.6 mmHg 773.1 msec Ao V2 VTI: 36.6 cm TOREY(I,D): 1.8 cm2 TOREY(V,D): 1.9 cm2 LV V1 max PG: SV(LVOT): 65.0 ml PA V2 max: PI end-d mikie: 7.5 mmHg 125.4 cm/sec 162.9 cm/sec LV V1 mean PG: PA max P.7 mmHg 6.3 mmHg LV V1 max: 136.7 cm/sec LV V1 mean: 70.4 cm/sec LV V1 VTI: 19.3 cm TR max mikie: AV P1/2t-pr_phl: MV P1/2t-pr_phl: 283.7 cm/sec 773.1 msec 62.2 msec TR max P.2 mmHg Left Ventricle The left ventricle is moderately dilated. There is moderate concentric left ventricular hypertrophy. Left ventricular systolic function is moderate to severely reduced. The Ejection Fraction estimate is 20-25%. LV diastolic function not assessed. There is moderate to severe global hypokinesis of the left ventricle. Right Ventricle The right ventricle is normal size. The right ventricular systolic function is mild to moderately reduced. Atria The right atrium is mildly dilated. The left atrium is moderately dilated. The interatrial septum is intact with no evidence for an atrial septal defect. There is no Doppler evidence for an interatrial shunt. Mitral Valve The mitral valve leaflets are sclerotic and show some degree of functional abnormality. Calcified mitral apparatus. There is a mild to moderate amount of mitral regurgitation. Aortic Valve The aortic valve is grossly normal. The aortic valve opens well. The aortic valve is trileaflet. There is no aortic valve stenosis. There is a mild to moderate amount of aortic regurgitation. Tricuspid Valve The tricuspid valve is not well visualized, but is grossly normal. There is no tricuspid stenosis. There is a mild amount of tricuspid regurgitation. There is moderate pulmonary hypertension by echo. Right ventricular systolic pressure is estimated to be elevated at 40-50mmHg. Pulmonic Valve The pulmonic valve is not well visualized. There is no pulmonic valvular stenosis. There is a mild to moderate amount of pulmonic regurgitation. Great Vessels The aortic root is normal size. The inferior vena cava appeared dilated and decreased < 50% with respiration (RAP 15-20 mmHg). Effusions Minimal pericardial effusion. : THANH SPEARS Anil
[2020-08-24] MEDS: SACUBITRIL/VALSARTAN 24 MG/26 MG TABLET PO SCH ×2 (09:13→17:12)
[2020-08-24] MEDS: CALCIUM CARBONATE 600 MG/VITAMIN D3 400 UNIT TABLET PO SCH (09:14)
[2020-08-24] MEDS: PREDNISONE 20 MG TABLET PO SCH (09:14)
[2020-08-24] MEDS: APIXABAN 5 MG TABLET PO SCH ×2 (09:14→17:11)
[2020-08-24] MEDS: AZATHIOPRINE 50 MG TABLET PO SCH ×3 (09:14→17:13)
[2020-08-24] MEDS ORDERED: FUROSEMIDE INJ/PF 40 MG/4 ML SDV IV SCH ×2 (10:00→18:00)
--- NOTE | 2020-08-24 12:02 | PDOC CONSULTATION ---
Consultation Consult Date: 08/24/20 Provider Consulted: DANISH SMITH Consult reason:: Hematology/Oncology consultation was requested for patient with pancytopenia and history of ITP. History of Present Illness Admission Date/PCP: 08/23/20 13:14 GLORIA CHAVEZ History of Present Illness: DANDRE SANTOS is a 64 year old female who has a longstanding history of Lupus. About a month ago, patient was seen here for pancytopenia thought to be due to plaquinil and Lupus, as well as ITP. Her PLT at that time were 7. The plaquinil was stopped and she was started on prednisone. She has had a good response to this and her PLT are now >50. Although she was scheduled to follow- up with rheumatology about further treatment for the Lupus, this appointment had to be cancelled. She has remained off the plaquinil and has been taking prednisone 40 mg daily (just decreased last week from 40 BID to 40 daily). She presented to the ED this time for chest pains, and thought she was having a heart attack. She was found to have Afib with RVR. She was started on appropriate medications and her HR has improved. Dr. Wren is following. Her HGB on discharge was >10 but now is at 8.5. She has a new rash over her arms and legs. Today, she states that the chest pain has improved. She denies any recent bleeding. No obvious weakness, as she had with lupus flairs in the past. Past Medical History Cardiac Medical History: Reports: Atrial Fibrillation, Congestive Heart Failure, Hypertension Denies: Coronary Artery Disease, DVT, Myocardial Infarction, Hyperlipidema, Pulmonary Embolism Pulmonary Medical History: Denies: Asthma, Chronic Obstructive Pulmonary Disease (COPD) EENT Medical History: Reports: Other - ITP Neurological Medical History: Denies: Seizures Endocrine Medical History: Reports: Hypothyroidism Denies: Diabetes Mellitus Type 1, Diabetes Mellitus Type 2, Hyperthyroidism Malignancy Medical History: Reports: Skin Cancer GI Medical History: Reports: Gastroesophageal Reflux Disease Denies: Cirrhosis, Hepatitis, Hiatal Hernia Musculoskeltal Medical History: Reports: Arthritis Denies: Fibromyalgia Skin Medical History: Denies: Eczema, Psoriasis Psychiatric Medical History: Denies: Depression Hematology: Reports: Anemia - Chronic, Other - ITP Denies: Sickle Cell Disease, Bleeding Tendencies Past Surgical History Past Surgical History: Reports: Hysterectomy, Other - skin cancer removal Denies: Amputation, Mastectomy, Pacemaker Social History Smoking Status: Former Smoker Electronic Cigarette use?: No Frequency of Alcohol Use: None Hx Recreational Drug Use: No Drugs: None Hx Prescription Drug Abuse: No - Advance Directive Resuscitation Status: Do Not Resuscitate Family History Family History: Hypertension Parental Family History Reviewed: Yes - Both are of old age. Children Family History Reviewed: No Sibling(s) Family History Reviewed.: Yes Medication/Allergy Home Medications: Levothyroxine Sodium [Synthroid] 200 mcg PO Q6AM 06/14/20 Multivitamin [Tab-A-Carter (Multiple Vitamin) Tablet] 1 tab PO DAILY 06/23/20 Atorvastatin Calcium [Lipitor 40 mg Tablet] 40 mg PO QHS 30 Days #30 tablet 06/24/20 Furosemide [Lasix 20 mg Tablet] 20 mg PO QAM 14 Days #30 tablet 06/24/20 Sacubitril/Valsartan [Entresto 24 mg/26 mg Tablet] 1 tab PO BID 30 Days #60 tablet 06/24/20 Calcium Carbonate/Vitamin D3 [Calcium 600-Vit D3 400 Caplet] 1 tab-cap PO DAILY 07/27/20 Acetaminophen [Tylenol 325 mg Tablet] 650 mg PO Q4HP PRN tablet 07/31/20 Azathioprine [Imuran] 50 mg PO TID 08/23/20 Furosemide [Lasix 20 mg Tablet] 10 mg PO QPM 08/23/20 Metoprolol Tartrate [Lopressor 50 mg Tablet] 50 mg PO QAM 08/23/20 Metoprolol Tartrate [Lopressor] 25 mg PO QPM 08/23/20 Prednisone [Deltasone 20 mg Tablet] 40 mg PO QAM 08/23/20 Allergies/Adverse Reactions: Iodinated Contrast Media Allergy (Verified 08/23/20 08:46) Generalized rash Review of Systems Constitutional: ABSENT: fever(s), headache(s) Eyes: ABSENT: visual disturbances Ears: ABSENT: hearing changes Nose, Mouth, and Throat: ABSENT: sore throat Cardiovascular: PRESENT: chest pain Respiratory: PRESENT: dyspnea Gastrointestinal: PRESENT: heartburn. ABSENT: constipation Genitourinary: ABSENT: dysuria Musculoskeletal: ABSENT: joint swelling Integumentary: PRESENT: rash Neurological: ABSENT: confusion Hematologic/Lymphatic: ABSENT: easy bleeding Physical Exam Vital Signs: Temp Pulse Resp BP Pulse Ox 97.9 F 78 17 173/108 H 99 08/24/20 10:00 08/24/20 08:46 08/24/20 08:46 08/24/20 08:46 08/24/20 08:46 Intake & Output 08/23/20 08/24/20 08/25/20 06:59 06:59 06:59 Intake Total 700 Output Total 1300 Balance -600 Weight 80 kg General appearance: PRESENT: no acute distress, well-developed, well-nourished Exam: 64 year old female, Head exam: PRESENT: normocephalic Eye exam: PRESENT: EOMI Mouth exam: PRESENT: moist Neck exam: ABSENT: lymphadenopathy Respiratory exam: PRESENT: clear to auscultation beth, unlabored Cardiovascular exam: PRESENT: RRR, tachycardia GI/Abdominal exam: PRESENT: soft. ABSENT: tenderness Extremities exam: ABSENT: pedal edema Musculoskeletal exam: PRESENT: normal inspection Neurological exam: PRESENT: alert, awake Psychiatric exam: PRESENT: appropriate affect Skin exam: PRESENT: other - Dark red areas similar to telanjectasias. No obvious petechei. No echymoses. No urticaria. Results Laboratory Results: 08/24/20 04:19 08/24/20 04:19 08/23/20 08/23/20 08/24/20 08:36 11:12 04:19 WBC 6.8 5.2 RBC 2.98 L 2.92 L Hgb 8.5 L 8.5 L Hct 25.5 L 25.1 L MCV 86 86 MCH 28.7 29.1 MCHC 33.5 33.8 RDW 17.7 H 17.4 H Plt Count 66 L 67 L Seg Neutrophils % Not Reportable Sodium Potassium Chloride Carbon Dioxide Anion Gap BUN Creatinine Est GFR ( Amer) Glucose Calcium Magnesium TSH 0.64 08/24/20 04:19 WBC RBC Hgb Hct MCV MCH MCHC RDW Plt Count Seg Neutrophils % Sodium 134.2 L Potassium 4.7 Chloride 101 Carbon Dioxide 25 Anion Gap 8 BUN 61 H Creatinine 1.23 Est GFR ( Amer) 54 L Glucose 187 H Calcium 8.6 Magnesium 2.0 TSH 08/23/20 08/23/20 08:36 19:45 Troponin I 0.071 0.077 NT-Pro-B Natriuret Pep [id number] H Impressions: Venous Doppler Study 08/23/20 00:00 IMPRESSION: No evidence of deep venous thrombosis about either lower extremity. Chest X-Ray 08/23/20 08:48 IMPRESSION: NO ACUTE RADIOGRAPHIC FINDING IN THE CHEST. Chest/Abdomen CTA 08/23/20 12:47 IMPRESSION: 1. No PE. 2. Chronic versus recurrent reticulonodular pattern in the right lower lobe c ould represent infection or aspiration. Suspect a background of chronic CHF. Assessment & Plan - Diagnosis (1) Atrial fibrillation with RVR Is this a current diagnosis for this admission?: Yes Plan: As per Dr. Salamanca. (2) CHF (congestive heart failure), NYHA class II Qualifiers: Congestive heart failure type: systolic Congestive heart failure chronicity: chronic Qualified Code(s): I50.22 - Chronic systolic (congestive) heart failure Is this a current diagnosis for this admission?: Yes Plan: As per Dr. Wren (3) Chronic ITP (idiopathic thrombocytopenia) Is this a current diagnosis for this admission?: Yes Plan: Her decrease in PLT and HGB from 1 week ago, may be due to the decrease in steroid dose. However, as long as HGB >8 and PLT >50, I see no contraindication to cardiac evaluation and treatment. Blood thinners should be safe, with PLT >50. I would not change the dose of prednisone at this time, but may need to increase if blood counts continue to drop. (4) Anemia Qualifiers: Anemia type: other cause Other causes of anemia: other cause, not classified Qualified Code(s): D64.89 - Other specified anemias Is this a current diagnosis for this admission?: Yes Plan: This is due to her chronic lupus. Again, may increase steroids, of offer blood transfusions if it is worse. I will continue to monitor. (5) Systemic lupus erythematosus arthritis Is this a current diagnosis for this admission?: Yes Plan: She sees Dr. Michael Obrien. Although he does not come to this hospital, he may be able to offer further recommendations by phone. I have discussed with with hospitalist.
[2020-08-24] MEDS: METOPROLOL SUCCINATE 50 MG TAB.SR.24H PO SCH (13:06)
[2020-08-24] MEDS ORDERED: DEXTROSE 50%-WATER 25 GM/50 ML DISP.SYRIN IV PRN ×2 (13:38)
[2020-08-24] MEDS ORDERED: DEXTROSE 40% GEL 15 GM TUBE PO PRN ×2 (13:38)
[2020-08-24] MEDS ORDERED: GLUCAGON,HUMAN RECOMB 1 MG INJ IM PRN (13:38)
--- NOTE | 2020-08-24 13:42 | PDOC PROGRESS REPORT ---
Subjective Date:: 08/24/20 Subjective:: NAEO. HR continues to be >100 and she continues to have SOB and ARORA. Reason For Visit: AFIB WITH RVR NEW ONSET, NSTEMI Physical Exam Vital Signs: Temp Pulse Resp BP Pulse Ox 97.5 F 81 17 159/82 H 100 08/24/20 12:54 08/24/20 12:54 08/24/20 12:54 08/24/20 12:54 08/24/20 12:54 Intake & Output 08/23/20 08/24/20 08/25/20 06:59 06:59 06:59 Intake Total 700 866 Output Total 1300 Balance -600 866 Weight 80 kg General appearance: PRESENT: no acute distress, cooperative Eye exam: ABSENT: scleral icterus Mouth exam: PRESENT: moist Throat exam: ABSENT: post pharyngeal erythema Neck exam: PRESENT: JVD Respiratory exam: PRESENT: crackles, tachypnea Cardiovascular exam: PRESENT: irregular rhythm, tachycardia Gentrourinary exam: ABSENT: indwelling catheter Extremities exam: PRESENT: +2 edema Neurological exam: PRESENT: alert, awake, oriented to person, oriented to place, oriented to time, oriented to situation Psychiatric exam: PRESENT: appropriate affect Skin exam: ABSENT: jaundice Results Laboratory Results: 08/24/20 04:19 08/24/20 04:19 08/24/20 08/24/20 04:19 04:19 WBC 5.2 RBC 2.92 L Hgb 8.5 L Hct 25.1 L MCV 86 MCH 29.1 MCHC 33.8 RDW 17.4 H Plt Count 67 L Sodium 134.2 L Potassium 4.7 Chloride 101 Carbon Dioxide 25 Anion Gap 8 BUN 61 H Creatinine 1.23 Est GFR ( Amer) 54 L Glucose 187 H Calcium 8.6 Magnesium 2.0 08/23/20 08/23/20 08:36 19:45 Troponin I 0.071 0.077 NT-Pro-B Natriuret Pep [id number] H Impressions: Venous Doppler Study 08/23/20 00:00 IMPRESSION: No evidence of deep venous thrombosis about either lower extremity. Chest X-Ray 08/23/20 08:48 IMPRESSION: NO ACUTE RADIOGRAPHIC FINDING IN THE CHEST. Chest/Abdomen CTA 08/23/20 12:47 IMPRESSION: 1. No PE. 2. Chronic versus recurrent reticulonodular pattern in the right lower lobe could represent infection or aspiration. Suspect a background of chronic CHF. Assessment and Plan - Diagnosis (1) New onset atrial fibrillation Is this a current diagnosis for this admission?: Yes (2) Right heart failure Qualifiers: Heart failure chronicity: acute on chronic Qualified Code(s): I50.813 - Acute on chronic right heart failure Is this a current diagnosis for this admission?: Yes (3) Chronic ITP (idiopathic thrombocytopenia) Is this a current diagnosis for this admission?: Yes (4) Atrial fibrillation with RVR Is this a current diagnosis for this admission?: Yes (5) Lower extremity edema Is this a current diagnosis for this admission?: Yes (6) Thrombocytopenia Is this a current diagnosis for this admission?: Yes (7) Acute CHF (congestive heart failure) Qualifiers: Heart failure type: unspecified Qualified Code(s): I50.9 - Heart failure, unspecified Is this a current diagnosis for this admission?: Yes (8) Anemia Qualifiers: Anemia type: other cause Other causes of anemia: other cause, not classified Qualified Code(s): D64.89 - Other specified anemias Is this a current diagnosis for this admission?: Yes (9) Hypertension Qualifiers: Hypertension type: essential hypertension Qualified Code(s): I10 - Essential (primary) hypertension Is this a current diagnosis for this admission?: Yes (10) Hypothyroidism Qualifiers: Hypothyroidism type: acquired Qualified Code(s): E03.9 - Hypothyroidism, unspecified Is this a current diagnosis for this admission?: Yes (11) Non-ST elevation (NSTEMI) myocardial infarction Is this a current diagnosis for this admission?: Yes (12) Systemic lupus erythematosus arthritis Is this a current diagnosis for this admission?: Yes - Plan Summary Summary: DANDRE SANTOS is a 64 year old female with PMH of SLE, CHF, HTN, HLD, hypothyroidism, and ITP on high dose steroids who presents with progressively worsening SOB and CP x1 week. In the ED, she was found to have AFRVR, acute on chronic CHF exacerbation and NSTEMI. New-Onset Atrial Fibrillation with RVR - cardiology consulted - telemetry - increase metoprolol succinate dose to 100 mg daily, titrate dose up for goal HR ~60 (given HFrEF) - Eliquis for anticoagulation (as long as PLTs remain above 50K) Acute on Chronic Diastolic and Systolic CHF Exacerbation: may be due to AFRVR vs high dose steroids for the last month - TTE showed severe LV dysfunction with EF 20% and moderate RV dysfunction, no WMA - cardiology consulted, would benefit from cardiac catheterization, which will be planned by Dr. Wren as outpatient - diuresis with Lasix 40 mg IV BID - strict I/O - low sodium diet - elevate legs - FORTINO stockings to BLE - daily weight NSTEMI: troponin flat, likely type 2, demand ischemia due to AFRVR and CHF exacerbation. - cardiology consulted - TTE without evidence of change in EF or new WMA Thrombocytopenia: due to ITP versus SLE. She has not been taking any medication for control of SLE for the last month and has not seen her senior drupal developer for at least 2 months. I called her senior drupal developer today to discuss her labs and the rash on her BUE, but received no response yet (voicemail left). Discussed outpatient CBC last week with Dr. Barreto; at that time, her WBC was 9.4, HGB 9.5, PLT 96 so all values are decreased on recheck here in the hospital. This, in conjunction with new rash on her BUE could be due to a SLE flare. - oncology (Dr. Barreto) consulted - continue steroids with PPI therapy - close outpatient follow up with rheumatology, Dr. Michael Obrien Anemia: thought to be due to SLE. She has no signs/symptoms of an acute bleed. - continue to monitor with daily CBC, especially as we are starting AC Hypothyroidism - continue home Synthroid Hyperglycemia - check HbA1c - start SSI TID AC - Time Time Spent with patient: 35 or more minutes Anticipated Discharge Disposition: Home, Self Care Anticipated Discharge Timeframe: within 24 hours
--- NOTE | 2020-08-24 15:33 | PDOC PROGRESS REPORT ---
Subjective Date:: 08/24/20 Subjective:: Patient seen and examined. Feels much better. Off infusion. Heart rate is bet ter controlled. Continues to be in atrial fibrillation. Has been seen by hematology. Reason For Visit: AFIB WITH RVR NEW ONSET, NSTEMI Physical Exam Vital Signs: Temp Pulse Resp BP Pulse Ox 97.5 F 81 17 159/82 H 100 08/24/20 12:54 08/24/20 12:54 08/24/20 12:54 08/24/20 12:54 08/24/20 12:54 Intake & Output 08/23/20 08/24/20 08/25/20 06:59 06:59 06:59 Intake Total 700 866 Output Total 1300 Balance -600 866 Weight 80 kg General appearance: PRESENT: no acute distress, cooperative, well-developed, well-nourished Head exam: PRESENT: atraumatic, normocephalic Eye exam: PRESENT: conjunctiva pink Mouth exam: PRESENT: moist Respiratory exam: PRESENT: symmetrical, unlabored Cardiovascular exam: PRESENT: irregular rhythm, +S1, +S2 Pulses: PRESENT: normal radial pulses GI/Abdominal exam: PRESENT: soft Rectal exam: PRESENT: deferred Neurological exam: PRESENT: alert, awake, oriented to person, oriented to place, oriented to time, oriented to situation Psychiatric exam: PRESENT: appropriate affect Skin exam: PRESENT: dry, intact Results Laboratory Results: 08/24/20 04:19 08/24/20 04:19 08/24/20 08/24/20 04:19 04:19 WBC 5.2 RBC 2.92 L Hgb 8.5 L Hct 25.1 L MCV 86 MCH 29.1 MCHC 33.8 RDW 17.4 H Plt Count 67 L Sodium 134.2 L Potassium 4.7 Chloride 101 Carbon Dioxide 25 Anion Gap 8 BUN 61 H Creatinine 1.23 Est GFR ( Amer) 54 L Glucose 187 H Calcium 8.6 Magnesium 2.0 08/23/20 08/23/20 08:36 19:45 Troponin I 0.071 0.077 NT-Pro-B Natriuret Pep [id number] H EKG Comments: Telemetry shows atrial fibrillation with relatively controlled ventricular response at 90 to 100 bpm. Transthoracic echocardiogram 08/23/2020 Left ventricular ejection fraction is moderately to severely depressed and is estimated at approximately 20 to 25%. Regurgitant lesions probably are functional. There is no pericardial effusion. Elevated filling pressures Impressions: Venous Doppler Study 08/23/20 00:00 IMPRESSION: No evidence of deep venous thrombosis about either lower extremity. Chest X-Ray 08/23/20 08:48 IMPRESSION: NO ACUTE RADIOGRAPHIC FINDING IN THE CHEST. Chest/Abdomen CTA 08/23/20 12:47 IMPRESSION: 1. No PE. 2. Chronic versus recurrent reticulonodular pattern in the right lower lobe could represent infection or aspiration. Suspect a background of chronic CHF. Assessment & Plan - Diagnosis (1) CHF (congestive heart failure), NYHA class II Qualifiers: Congestive heart failure type: systolic Congestive heart failure chronicity: chronic Qualified Code(s): I50.22 - Chronic systolic (congestive) heart failure Is this a current diagnosis for this admission?: Yes Plan: Acute decompensated systolic congestive heart failure Volume overload and arrhythmia probably precipitated this Volume overload may be in part due to salt and water retention. Continue with diuresis Continue guideline directed medical therapy LV dysfunction is a new finding for this patient with a background of hypertension and connective tissue disease. Cardiac catheterization was planned earlier and was aborted due to pancytopenia. Thankfully due to input from hematology that it is safe to pursue this now we will arrange for this as an outpatient. I will make arrangements for this once the patient has improved from her current condition. Ideally we would have better rate control and stable hemoglobin and hematocrit as well as platelet counts prior to discharge so we can follow this as an outpatient In terms of medications we will continue Entresto at current dose and Continue metoprolol at current dose (2) New onset atrial fibrillation Is this a current diagnosis for this admission?: Yes Plan: Nonsedated fibrillation Rate control measures only at the moment Patient has been started on apixaban Input from hematology noted that it is safe to do so. The rate is better controlled we will pursue RUI guided cardioversion as an outpatient procedure. We will coordinate this with her cardiac catheterization. (3) Pancytopenia Is this a current diagnosis for this admission?: Yes Plan: Appreciate input from hematology. Steroids to be continued per hematology Hematology have indicated that it safe to pursue cardiac utilization and antip latelet therapy as necessary. Patient is on apixaban at the moment.
[2020-08-24] MEDS: INSULIN LISPRO 100 UNIT/ML 3 ML VIAL SUBCUT SCH ×2 (17:11→21:47)
[2020-08-24] MEDS: ATORVASTATIN CALCIUM 40 MG TABLET PO SCH (21:48)
[2020-08-25] MEDS: PANTOPRAZOLE SODIUM 40 MG TABLET.DR PO SCH (05:21)
[2020-08-25] MEDS ORDERED: LEVOTHYROXINE SODIUM 0.1 MG TABLET PO SCH (06:00)
[2020-08-25 06:54] LABS: HEMATOCRIT 22.5 % (36.0-47.0); MEAN CORPUSCULAR HGB CONC 33.5 g/dL (32.0-36.0); MEAN CORPUSCULAR VOLUME 87 fl (80-97); RED CELL DISTRIBUTION WIDTH 17.8 % (11.5-14.0)
[2020-08-25 06:58] LABS: BLOOD UREA NITROGEN 77 mg/dL (7-20); CALCIUM 8.5 mg/dL (8.4-10.2); CHLORIDE 98 mmol/L (98-107); GLUCOSE 137 mg/dL (75-110); POTASSIUM 4.5 mmol/L (3.6-5.0)
[2020-08-25 07:03] LABS: ANION GAP 5 (5-19); CARBON DIOXIDE 30 mmol/L (22-30)
[2020-08-25] MEDS: INSULIN LISPRO 100 UNIT/ML 3 ML VIAL SUBCUT SCH ×2 (07:51→13:19)
[2020-08-25 07:59] LABS: PLATELET COUNT 76 10^3/uL (150-450)
[2020-08-25 08:02] LABS: HEMOGLOBIN 7.5 g/dL (12.0-15.5)
--- NOTE | 2020-08-25 08:25 | PDOC PROGRESS REPORT ---
Subjective Date:: 08/25/20 Subjective:: Patient seems better this morning, discussed case extensively with hospitalist team. Spent 40 minutes in discussion coordination of care. Reason For Visit: AFIB WITH RVR NEW ONSET, NSTEMI Physical Exam Vital Signs: Temp Pulse Resp BP Pulse Ox 98.0 F 74 17 153/92 H 100 08/25/20 07:37 08/25/20 07:37 08/25/20 07:37 08/25/20 07:37 08/25/20 07:37 Intake & Output 08/24/20 08/25/20 08/26/20 06:59 06:59 06:59 Intake Total 700 1852 Output Total 1300 1 Balance -600 1851 Weight 80 kg 81.2 kg General appearance: PRESENT: no acute distress, well-developed, well-nourished Head exam: PRESENT: atraumatic, normocephalic Eye exam: PRESENT: conjunctiva pink, EOMI, PERRLA. ABSENT: scleral icterus Ear exam: PRESENT: normal external ear exam Mouth exam: PRESENT: moist, tongue midline Neck exam: ABSENT: carotid bruit, JVD, lymphadenopathy, thyromegaly Respiratory exam: PRESENT: clear to auscultation beth. ABSENT: rales, rhonchi, wheezes Cardiovascular exam: PRESENT: RRR. ABSENT: diastolic murmur, rubs, systolic murmur Pulses: PRESENT: normal dorsalis pedis pul Vascular exam: PRESENT: normal capillary refill GI/Abdominal exam: PRESENT: normal bowel sounds, soft. ABSENT: distended, guarding, mass, organolmegaly, rebound, tenderness Rectal exam: PRESENT: deferred Extremities exam: PRESENT: full ROM. ABSENT: calf tenderness, clubbing, pedal edema Neurological exam: PRESENT: alert, awake, oriented to person, oriented to place, oriented to time, oriented to situation, CN II-XII grossly intact. ABSENT: motor sensory deficit Psychiatric exam: PRESENT: appropriate affect, normal mood. ABSENT: homicidal ideation, suicidal ideation Skin exam: PRESENT: dry, intact, warm. ABSENT: cyanosis, rash Results Laboratory Results: 08/25/20 05:30 08/25/20 05:30 08/25/20 08/25/20 05:30 05:30 WBC 6.0 RBC 2.60 L Hgb 7.5 L Hct 22.5 L MCV 87 MCH 29.0 MCHC 33.5 RDW 17.8 H Plt Count 76 L Sodium 133.1 L Potassium 4.5 Chloride 98 Carbon Dioxide 30 Anion Gap 5 BUN 77 H Creatinine 1.63 H Est GFR ( Amer) 39 L Glucose 137 H Calcium 8.5 Magnesium 2.0 08/23/20 08/23/20 08:36 19:45 Troponin I 0.071 0.077 NT-Pro-B Natriuret Pep [id number] H Impressions: Venous Doppler Study 08/23/20 00:00 IMPRESSION: No evidence of deep venous thrombosis about either lower extremity. Chest X-Ray 08/23/20 08:48 IMPRESSION: NO ACUTE RADIOGRAPHIC FINDING IN THE CHEST. Chest/Abdomen CTA 08/23/20 12:47 IMPRESSION: 1. No PE. 2. Chronic versus recurrent reticulonodular pattern in the right lower lobe could represent infection or aspiration. Suspect a background of chronic CHF. Assessment & Plan - Diagnosis (1) Pancytopenia Is this a current diagnosis for this admission?: Yes Plan: I believe it is because of lupus flare more than medication related. Steroids are helping and will ultimately stabilize her blood but will probably need other immunosuppressive therapy to control this. Her iron bender has been contacted and will be seeing her on Saturday. From hematologic standpoint okay for discharge today, she has follow-up for blood counts every Saturday in our office and we can transfuse as an outpatient if needed. - Time Time Spent with patient: 35 or more minutes
[2020-08-25] MEDS: CALCIUM CARBONATE 600 MG/VITAMIN D3 400 UNIT TABLET PO SCH (09:11)
[2020-08-25] MEDS: APIXABAN 5 MG TABLET PO SCH (09:11)
[2020-08-25] MEDS: PREDNISONE 20 MG TABLET PO SCH (09:11)
[2020-08-25] MEDS: METOPROLOL SUCCINATE 50 MG TAB.SR.24H PO SCH (09:11)
[2020-08-25] MEDS: SACUBITRIL/VALSARTAN 24 MG/26 MG TABLET PO SCH (09:12)
[2020-08-25] MEDS: AZATHIOPRINE 50 MG TABLET PO SCH ×2 (09:12→13:20)
[2020-08-25 12:27] VITALS: BP 159/92
--- NOTE | 2020-08-25 12:37 | PDOC PROGRESS REPORT ---
Subjective Date:: 08/25/20 Subjective:: Patient seen and examined. Feels a lot better. Wants to go home. Discharge pl anning is in progress. Outpatient providers including rheumatology have been contacted and follow-up appointments have been arranged. No chest pain, dyspnea or orthopnea reported. Improvement in peripheral edema is noted. Atrial fibrillation is rate controlled. Reason For Visit: AFIB WITH RVR NEW ONSET, NSTEMI Physical Exam Vital Signs: Temp Pulse Resp BP Pulse Ox 97.6 F 79 17 159/92 H 100 08/25/20 11:43 08/25/20 11:43 08/25/20 11:43 08/25/20 11:43 08/25/20 11:43 Intake & Output 08/24/20 08/25/20 08/26/20 06:59 06:59 06:59 Intake Total 700 1852 100 Output Total 1300 1 356 Balance -600 1851 -256 Weight 80 kg 81.2 kg General appearance: PRESENT: no acute distress, cooperative, well-developed, well-nourished Head exam: PRESENT: atraumatic, normocephalic Eye exam: PRESENT: conjunctiva pink, EOMI Mouth exam: PRESENT: moist Respiratory exam: PRESENT: decreased breath sounds, symmetrical, unlabored Cardiovascular exam: PRESENT: irregular rhythm, +S1, +S2 GI/Abdominal exam: PRESENT: soft Rectal exam: PRESENT: deferred Neurological exam: PRESENT: alert, awake, oriented to person, oriented to place, oriented to time, oriented to situation Psychiatric exam: PRESENT: appropriate affect Skin exam: PRESENT: intact, rash Results Laboratory Results: 08/25/20 05:30 08/25/20 05:30 08/25/20 08/25/20 05:30 05:30 WBC 6.0 RBC 2.60 L Hgb 7.5 L Hct 22.5 L MCV 87 MCH 29.0 MCHC 33.5 RDW 17.8 H Plt Count 76 L Sodium 133.1 L Potassium 4.5 Chloride 98 Carbon Dioxide 30 Anion Gap 5 BUN 77 H Creatinine 1.63 H Est GFR ( Amer) 39 L Glucose 137 H Calcium 8.5 Magnesium 2.0 08/23/20 08/23/20 08:36 19:45 Troponin I 0.071 0.077 NT-Pro-B Natriuret Pep [id number] H Impressions: Venous Doppler Study 08/23/20 00:00 IMPRESSION: No evidence of deep venous thrombosis about either lower extremity. Chest X-Ray 08/23/20 08:48 IMPRESSION: NO ACUTE RADIOGRAPHIC FINDING IN THE CHEST. Chest/Abdomen CTA 08/23/20 12:47 IMPRESSION: 1. No PE. 2. Chronic versus recurrent reticulonodular pattern in the right lower lobe could represent infection or aspiration. Suspect a background of chronic CHF. Assessment & Plan - Diagnosis (1) CHF (congestive heart failure), NYHA class II Qualifiers: Congestive heart failure type: systolic Congestive heart failure chronicity: chronic Qualified Code(s): I50.22 - Chronic systolic (congestive) heart failure Is this a current diagnosis for this admission?: Yes Plan: Acute decompensated systolic congestive heart failure Volume overload and arrhythmia probably precipitated this Volume overload may be in part due to salt and water retention. On oral diuretic. Add spironolactone 25 mg daily Continue guideline directed medical therapy Continue Entresto at current dose and Continue metoprolol at current dose (2) New onset atrial fibrillation Is this a current diagnosis for this admission?: Yes Plan: Nonsedated fibrillation Rate control measures only at the moment Patient has been started on apixaban Input from hematology noted that it is safe to do so. The rate is better controlled we will pursue RUI guided cardioversion as an outpatient procedure. We will coordinate this with her cardiac catheterization. (3) Pancytopenia Is this a current diagnosis for this admission?: Yes Plan: Appreciate input from hematology. Steroids to be continued per hematology Hematology have indicated that it safe to pursue cardiac catheterization and antiplatelet therapy as necessary. Patient is on apixaban at the moment. Patient to follow-up with rheumatology or as well. - Notes Notes: Patient has outpatient appointments with rheumatology and hematology next week. In the subsequent week we can arrange for cardiology outpatient office visit at which point we can rearrange for cardiac catheterization. We will plan for left and right heart catheterization. Patient is already familiar with the plan.
--- NOTE | 2020-08-25 16:13 | PDOC DISCHARGE SUMMARY ---
Impression - Admit/DC Date/PCP Admission Date/Primary Care Provider: 08/23/20 13:14 VALDEMAR CHAVEZ-Nida Discharge Date: 08/25/20 - Discharge Diagnosis (1) New onset atrial fibrillation Is this a current diagnosis for this admission?: Yes (2) Right heart failure Is this a current diagnosis for this admission?: Yes (3) Chronic ITP (idiopathic thrombocytopenia) Is this a current diagnosis for this admission?: Yes (4) Atrial fibrillation with RVR Is this a current diagnosis for this admission?: Yes (5) Lower extremity edema Is this a current diagnosis for this admission?: Yes (6) Thrombocytopenia Is this a current diagnosis for this admission?: Yes (7) Acute CHF (congestive heart failure) Is this a current diagnosis for this admission?: Yes (8) Anemia Is this a current diagnosis for this admission?: Yes (9) Hypertension Is this a current diagnosis for this admission?: Yes (10) Hypothyroidism Is this a current diagnosis for this admission?: Yes (11) Non-ST elevation (NSTEMI) myocardial infarction Is this a current diagnosis for this admission?: Yes (12) Systemic lupus erythematosus arthritis Is this a current diagnosis for this admission?: Yes - Assessment Summary: DANDRE SANTOS is a 64 year old female with PMH of SLE, chronic diastolic/systolic CHF (EF 20-25%), HTN, HLD, hypothyroidism, and ITP on high dose steroids who presents with progressively worsening SOB and CP x1 week. In the ED, she was found to have AFRVR, acute on chronic CHF exacerbation and NSTEMI. New-Onset Atrial Fibrillation with RVR: rate control was achieved with Toprol XL 100 mg daily. She was started on Eliquis for anticoagulation (discussed with Heme/Onc, and they agreed that this was safe as long as PLTs remain above 50K). She will follow up with cardiology as outpatient for RUI/DCCV. Acute on Chronic Diastolic and Systolic CHF Exacerbation: may be due to AFRVR vs high dose steroids for the last month. She is followed by Dr. Holger Veloz as outpatient. TTE showed severe LV dysfunction with EF 20-25% and moderate RV dysfunction, no WMA. She was diuresed with Lasix 40 mg IV BID with good effect and discharged home on Lasix 40 mg PO BID. She was also started on spironolactone 25 mg daily and her metoprolol dose was increased, as per above. NSTEMI: troponin flat, likely type 2, demand ischemia due to AFRVR and CHF exacerbation. TTE without evidence of change in EF or new WMA. Left and right cardiac catheterization is planned by Dr. Ford as outpatient in 1-2 weeks. Thrombocytopenia: due to ITP versus SLE. She has not been taking any medication for control of SLE for the last month and has not seen her automotive diagnostic technician for at least 2 months. I called her automotive diagnostic technician, Dr. Sneha Martinez, and he is concerned that her worsening anemia and thrombocytopenia, in conjunction with her rash and even CHF could all be due to SLE flare. She has close outpatient follow up with rheumatology arranged on Saturday, 08/29 and hematology/oncology on Saturday, 08/30. Anemia: thought to be due to SLE. She has no signs/symptoms of an acute bleed. Hypothyroidism: continue home Synthroid. TSH is appropriate. - Additional Information Resuscitation Status: Do Not Resuscitate Discharge Diet: Cardiac Discharge Activity: Activity As Tolerated, Balance Activity w/Rest, Weigh Daily Referrals: AMEE GRIMM FNP-C [Primary Care Provider] - Follow up as needed DANISH SMITH MD [ACTIVE STAFF] - SNEHA MARTINEZ MD [ACTIVE STAFF] - LETTY FORD MD [ACTIVE STAFF] - Prescriptions: Spironolactone [Aldactone 25 mg Tablet] 25 mg PO DAILY #2 tablet Apixaban [Eliquis 5 mg Tablet] 5 mg PO BID #60 tablet Furosemide [Lasix 40 mg Tablet] 40 mg PO QAM #30 tablet Metoprolol Succinate 100 mg PO DAILY #30 tab.er.24h Pantoprazole Sodium [Protonix [address] Tablet] 20 mg PO QAM #30 tablet.dr Home Medications: Levothyroxine Sodium [Synthroid] 200 mcg PO Q6AM 06/14/20 Multivitamin [Tab-A-Carter (Multiple Vitamin) Tablet] 1 tab PO DAILY 06/23/20 Atorvastatin Calcium [Lipitor 40 mg Tablet] 40 mg PO QHS 30 Days #30 tablet 06/24/20 Sacubitril/Valsartan [Entresto 24 mg/26 mg Tablet] 1 tab PO BID 30 Days #60 tablet 06/24/20 Calcium Carbonate/Vitamin D3 [Calcium 600-Vit D3 400 Caplet] 1 tab-cap PO DAILY 07/27/20 Acetaminophen [Tylenol 325 mg Tablet] 650 mg PO Q4HP PRN tablet 07/31/20 Azathioprine [Imuran] 50 mg PO TID 08/23/20 Prednisone [Deltasone 20 mg Tablet] 40 mg PO QAM 08/23/20 Apixaban [Eliquis 5 mg Tablet] 5 mg PO BID #60 tablet 08/25/20 Furosemide [Lasix 40 mg Tablet] 40 mg PO QAM #30 tablet 08/25/20 Metoprolol Succinate 100 mg PO DAILY #30 tab.er.24h 08/25/20 Pantoprazole Sodium [Protonix [address] Tablet] 20 mg PO QAM #30 tablet.dr 08/25/20 Spironolactone [Aldactone 25 mg Tablet] 25 mg PO DAILY #2 tablet 08/25/20 History of Present Illiness History of Present Illness: DANDRE SANTOS is a 64 year old female with PMH of SLE, CHF, HTN, HLD, hypothyroidism, and ITP on high dose steroids who presents with SOB and CP. Physical Exam Vital Signs: Temp Pulse Resp BP Pulse Ox 97.6 F 79 17 159/92 H 100 08/25/20 14:20 08/25/20 14:20 08/25/20 14:20 08/25/20 14:20 08/25/20 14:20 Intake & Output 08/24/20 08/25/20 08/26/20 06:59 06:59 06:59 Intake Total 700 1852 100 Output Total 1300 1 356 Balance -600 1851 -256 Weight 80 kg 81.2 kg Results Laboratory Results: WBC 6.0 10^3/uL (4.0-10.5) 08/25/20 05:30 RBC 2.60 10^6/uL (3.72-5.28) L 08/25/20 05:30 Hgb 7.5 g/dL (12.0-15.5) L 08/25/20 05:30 Hct 22.5 % (36.0-47.0) L 08/25/20 05:30 MCV 87 fl (80-97) 08/25/20 05:30 MCH 29.0 pg (27.0-33.4) 08/25/20 05:30 MCHC 33.5 g/dL (32.0-36.0) 08/25/20 05:30 RDW 17.8 % (11.5-14.0) H 08/25/20 05:30 Plt Count 76 10^3/uL (150-450) L 08/25/20 05:30 Lymph % (Auto) Not Reportable 08/23/20 11:12 [place] % (Auto) Not Reportable 08/23/20 11:12 Eos % (Auto) Not Reportable 08/23/20 11:12 Baso % (Auto) Not Reportable 08/23/20 11:12 Absolute Neuts (auto) Not Reportable 08/23/20 11:12 Absolute Lymphs (auto) Not Reportable 08/23/20 11:12 Absolute Monos (auto) Not Reportable 08/23/20 11:12 Absolute Eos (auto) Not Reportable 08/23/20 11:12 Absolute Basos (auto) Not Reportable 08/23/20 11:12 Total Counted 100 08/23/20 11:12 Seg Neutrophils % Not Reportable 08/23/20 11:12 Seg Neuts % (Manual) 83 % (42-78) H 08/23/20 11:12 Lymphocytes % (Manual) 12 % (13-45) L 08/23/20 11:12 Monocytes % (Manual) 2 % (3-13) L 08/23/20 11:12 Eosinophils % (Manual) 3 % (0-6) 08/23/20 11:12 Basophils % (Manual) 0 % (0-2) 08/23/20 11:12 Abs Neuts (Manual) 5.6 10^3/uL (1.7-8.2) 08/23/20 11:12 Abs Lymphs (Manual) 0.8 10^3/uL (0.5-4.7) 08/23/20 11:12 Abs Monocytes (Manual) 0.1 10^3/uL (0.1-1.4) 08/23/20 11:12 Absolute Eos (Manual) 0.2 10^3/uL (0.0-0.6) 08/23/20 11:12 Abs Basophils (Manual) 0.0 10^3/uL (0.0-0.2) 08/23/20 11:12 Platelet Estimate Cancelled 08/23/20 08:36 Platelet Comment DECREASED 08/23/20 11:12 Polychromasia 1+ 08/23/20 11:12 Poikilocytosis 1+ 08/23/20 11:12 Anisocytosis 1+ 08/23/20 11:12 Tear Drop Cells 1+ 08/23/20 11:12 Ovalocytes 1+ 08/23/20 11:12 D-Dimer 1.65 ug/mL (0.00-0.50) H 08/23/20 08:37 Sodium 133.1 mmol/L (137-145) L 08/25/20 05:30 Potassium 4.5 mmol/L (3.6-5.0) 08/25/20 05:30 Chloride 98 mmol/L (98-107) 08/25/20 05:30 Carbon Dioxide 30 mmol/L (22-30) 08/25/20 05:30 Anion Gap 5 (5-19) 08/25/20 05:30 BUN 77 mg/dL (7-20) H 08/25/20 05:30 Creatinine 1.63 mg/dL (0.52-1.25) H 08/25/20 05:30 Est GFR ( Amer) 39 (>60) L 08/25/20 05:30 Est GFR (MDRD) Non-Af 32 (>60) L 08/25/20 05:30 Glucose 137 mg/dL (75-110) H 08/25/20 05:30 POC Glucose 177 mg/dL (70-110) H 08/25/20 11:40 Hemoglobin A1c % 5.3 % (4.7-6.0) 08/25/20 05:30 Calcium 8.5 mg/dL (8.4-10.2) 08/25/20 05:30 Magnesium 2.0 mg/dL (1.6-2.3) 08/25/20 05:30 Troponin I 0.077 ng/mL 08/23/20 19:45 NT-Pro-B Natriuret Pep 770052 pg/mL (<125) H 08/23/20 08:36 TSH 0.64 uIU/mL (0.47-4.68) 08/23/20 08:36 POC Stool Occult Blood NEGATIVE (NEGATIVE) 08/23/20 12:25 Slides for Path Review Cancelled 08/23/20 08:36 08/23/20 08/23/20 08:36 19:45 Troponin I 0.071 0.077 NT-Pro-B Natriuret Pep [id number] H Impressions: Venous Doppler Study 08/23/20 00:00 IMPRESSION: No evidence of deep venous thrombosis about either lower extremity. Chest X-Ray 08/23/20 08:48 IMPRESSION: NO ACUTE RADIOGRAPHIC FINDING IN THE CHEST. Chest/Abdomen CTA 08/23/20 12:47 IMPRESSION: 1. No PE. 2. Chronic versus recurrent reticulonodular pattern in the right lower lobe could represent infection or aspiration. Suspect a background of chronic CHF. Stroke Is this a Stroke Patient?: No Acute Heart Failure Is this a Heart Failure Patient?: Yes Documentation of LVEF assessment?: Yes LVEF: LVEF Less Than or Equal to 35% Anticoagulant Therapy: Yes Discharged on Evidence-Based Beta Blockers: Yes Discharged on ARNI?: Yes For LVEF <35%, discharged on Aldosterone Antagonist?: Yes
== END 2020-08-25 14:59 | disposition home or self-care (01) | DRG 280 ==
LOC: ER 08:15 → EH 13:14 → 4N 21:58
PROVIDERS: ADMIT Hospitalist; ATTEND Hospitalist
PROC: B24BZZ4 Ultrasonography of Heart with Aorta, Transesophageal (ICD-10-PCS; principal; 2020-08-24)
DX: I48.91 Unspecified atrial fibrillation (principal); I21.A1 Myocardial infarction type 2; I50.43 Acute on chronic combined systolic (congestive) and diastolic (congestive) heart failure; D69.3 Immune thrombocytopenic purpura; D64.9 Anemia, unspecified; I11.0 Hypertensive heart disease with heart failure; E03.9 Hypothyroidism, unspecified; E78.5 Hyperlipidemia, unspecified; M32.8 Other forms of systemic lupus erythematosus; K21.9 Gastro-esophageal reflux disease without esophagitis; I42.0 Dilated cardiomyopathy; I25.10 Atherosclerotic heart disease of native coronary artery without angina pectoris; I50.813 Acute on chronic right heart failure; Z66 Do not resuscitate; Z79.890 Hormone replacement therapy; Z79.899 Other long term (current) drug therapy; Z79.52 Long term (current) use of systemic steroids; Z79.01 Long term (current) use of anticoagulants; Z85.828 Personal history of other malignant neoplasm of skin; Z87.891 Personal history of nicotine dependence; Z91.041 Radiographic dye allergy status; Z82.49 Family history of ischemic heart disease and other diseases of the circulatory system
CPT/HCPCS: 36415; 71045; 71275; 80048; 82270; 82962; 83036; 83735; 83880; 84443; 84484; 85025; 85027; 85379; 93005; 93010; 93306; 93970; 96365; 96366; 96375; 99285; G0378; J1200; J1720; J1815; J1940; J3490; J7500; J7512

== ENCOUNTER → 2020-09-14 | Outpatient (CLI) | payer MEDICARE ==
--- NOTE | 2020-09-14 14:09 | RADIOLOGY REPORT (SQ) ---
EXAM DESCRIPTION: CAROTID DOPPLER IMAGES COMPLETED DATE/TIME: 09/14/2020 1:09 pm REASON FOR STUDY: DIZZINESS R42 DIZZINESS AND GIDDINESS COMPARISON: None. TECHNIQUE: Grayscale ultrasound, Doppler velocity and spectra, and color Doppler images acquired of the extra-cranial carotid and vertebral arteries. Images stored on PACS. LIMITATIONS: None. FINDINGS: RIGHT CAROTID CCA Velocities: Within normal limits. ICA Velocities Peak systolic 111 cm/s. End diastolic 44 cm/s. Proximal ICA/CCA peak systolic ratio 2.81. Plaque in the carotid bulb and proximal ICA. Tortuous right ICA. Less than 50% stenosis. LEFT CAROTID CCA Velocities: Within normal limits. ICA Velocities Peak systolic 86 cm/s. End diastolic 36 cm/s. Proximal ICA/CCA peak systolic ratio 1.92. There is some plaque in the carotid bulb. Less than 50% stenosis. VERTEBRAL ARTERIES: Antegrade flow. Normal waveforms. SUBCLAVIAN ARTERIES: No finding. OTHER: No other significant finding. IMPRESSION: NO HEMODYNAMICALLY SIGNIFICANT STENOSIS. COMMENT: Quality ID #[id number]: Velocity criteria are extrapolated from the diameter data as defined by t he Society of Radiologists in Ultrasound Consensus Conference. Radiology 2003: 229; 340-346. TECHNICAL DOCUMENTATION: JOB ID: [id number] 2010 [employer]- All Rights Reserved Reading location - IP/workstation name: [email or web address]
== END ==
LOC: SP 09:45
PROVIDERS: ATTEND Nurse Practitioner Family
DX: R42 Dizziness and giddiness (principal)
CPT/HCPCS: 93880

== ENCOUNTER 2020-09-16 02:49 | Inpatient (IN) | payer MEDICARE ==
[2020-09-16 03:28] LABS: HEMATOCRIT 27.6 % (36.0-47.0); HEMOGLOBIN 8.7 g/dL (12.0-15.5); MEAN CORPUSCULAR HEMOGLOBIN 28.4 pg (27.0-33.4); MEAN CORPUSCULAR HGB CONC 31.7 g/dL (32.0-36.0); MEAN CORPUSCULAR VOLUME 90 fl (80-97); PLATELET COUNT 162 10^3/uL (150-450); RED BLOOD COUNT 3.07 10^6/uL (3.72-5.28); RED CELL DISTRIBUTION WIDTH 19.1 % (11.5-14.0); WHITE BLOOD COUNT 12.9 10^3/uL (4.0-10.5)
[2020-09-16 03:37] LABS: ALBUMIN 3.1 g/dL (3.5-5.0); ALKALINE PHOSPHATASE 864 U/L (38-126); ANION GAP 14 (5-19); ASPARTATE AMINO TRANSFERASE 345 U/L (14-36); BILIRUBIN,DIRECT 3.5 mg/dL (0.0-0.4); BILIRUBIN,TOTAL 5.2 mg/dL (0.2-1.3); BLOOD UREA NITROGEN 96 mg/dL (7-20); CALCIUM 8.8 mg/dL (8.4-10.2); CARBON DIOXIDE 24 mmol/L (22-30); CHLORIDE 105 mmol/L (98-107); GLUCOSE 232 mg/dL (75-110); POTASSIUM 4.6 mmol/L (3.6-5.0); TOTAL PROTEIN 5.8 g/dL (6.3-8.2)
[2020-09-16 03:46] LABS: ABSOLUTE LYMPHOCYTES# (MANUAL) 0.4 10^3/uL (0.5-4.7); ABSOLUTE MONOCYTES # (MANUAL) 0.5 10^3/uL (0.1-1.4); BAND NEUTROPHILS % (MANUAL) 3 % (3-5); BASOPHILS % (MANUAL) 0 % (0-2); EOSINOPHILS % (MANUAL) 0 % (0-6); LYMPHOCYTES % (MANUAL) 3 % (13-45); METAMYELOCYTES % (MANUAL) 1 % (0-1); MONOCYTES % (MANUAL) 4 % (3-13); NUCLEATED RED BLOOD CELLS 1 /100 WBC (0); SEGMENTED NEUTROPHILS % (MAN) 89 % (42-78); TOTAL CELLS COUNTED 100
[2020-09-16 03:47] LABS: ANISOCYTOSIS 2+; PLATELET COMMENT ADEQUATE; POLYCHROMASIA SLIGHT; TOXIC GRANULATION SLIGHT
--- NOTE | 2020-09-16 04:19 | RADIOLOGY REPORT (SQ) ---
EXAM DESCRIPTION: XR CHEST 1 VIEW COMPLETED DATE/TME: 09/16/2020 03:41 CLINICAL HISTORY: 65 years, Female, shortness of breathe COMPARISON: 08/23/2020 chest NUMBER OF VIEWS: 1 TECHNIQUE: Portable chest LIMITATIONS: None. FINDINGS: Cardiomegaly. Mild elevation right hemidiaphragm. Small bibasilar effusions. Mild prominence of the pulmonary interstitium. No pneumothorax IMPRESSION: Cardiomegaly with small bibasilar effusions and mild interstitial prominence copyright 2011 [employer]- All Rights Reserved
[2020-09-16] MEDS ORDERED: FUROSEMIDE INJ/PF 20 MG/2 ML SDV IV ONE (07:10)
[2020-09-16 09:05] LABS: INTERNATIONAL RATION (INR) 2.38
--- NOTE | 2020-09-16 09:06 | RADIOLOGY REPORT (SQ) ---
EXAM DESCRIPTION: U/S ABDOMEN LIMITED W/O DOP IMAGES COMPLETED DATE/TIME: 09/16/2020 8:45 am REASON FOR STUDY: elevated LFTs COMPARISON: None. TECHNIQUE: Dynamic and static grayscale images acquired of the abdomen and recorded on PACS. Additio nal selected color Doppler and spectral images recorded. LIMITATIONS: None. FINDINGS: PANCREAS: No masses. Visualized pancreatic duct normal caliber. LIVER: Enlarged measuring 18.6 cm. No masses. Echotexture normal. Mildly lobulated contour. LIVER VASCULATURE: Normal directional flow of the main portal vein and hepatic veins. GALLBLADDER: Surgically absent. ULTRASOUND-DETECTED SESAY'S SIGN: Not applicable. INTRAHEPATIC DUCTS AND COMMON DUCT: CBD and intrahepatic ducts normal caliber. No filling defects. INFERIOR VENA CAVA: Normal flow. AORTA: No aneurysm. RIGHT KIDNEY: Normal size measuring 11.1 cm. Normal echogenicity. No solid or suspicious masses. No hydronephrosis. No calcifications. PERITONEAL AND RIGHT PLEURAL SPACE: Trace perihepatic fluid. OTHER: No other significant findings. IMPRESSION: 1. Mild hepatomegaly with trace perihepatic fluid. 2. Prior cholecystectomy. TECHNICAL DOCUMENTATION: JOB ID: [id number] [employer]- All Rights Reserved Reading location - IP/workstation name: [email or web address]
[2020-09-16 09:30] LABS: C-REACTIVE PROTEIN 43.2 mg/L (<10.0); D-DIMER 4.82 ug/mL (0.00-0.50)
[2020-09-16 09:43] LABS: APPEARANCE,URINE SLIGHTLY-CLOUDY; BILIRUBIN,URINE NEGATIVE (NEGATIVE); COLOR,URINE AMBER; GLUCOSE, URINE NEGATIVE (NEGATIVE); KETONES,URINE NEGATIVE (NEGATIVE); LEUKOCYTE ESTERASE,URINE NEGATIVE (NEGATIVE); NITRITE,URINE NEGATIVE (NEGATIVE); PROTEIN,URINE 100 mg/dL (NEGATIVE); URINE SPECIFIC GRAVITY 1.016
[2020-09-16 09:44] LABS: ACETAMINOPHEN < 10 ug/mL (10-30); ALCOHOL < 10 mg/dL (NONE DETECTED)
--- NOTE | 2020-09-16 14:59 | RADIOLOGY REPORT (SQ) ---
EXAM DESCRIPTION: CT ABD/PELVIS NO ORAL OR IV IMAGES COMPLETED DATE/TIME: 09/16/2020 2:33 pm REASON FOR STUDY: elevated lfts/prior whipple procedure 1994 COMPARISON: 08/23/2020 TECHNIQUE: CT scan of the abdomen and pelvis performed without intravenous or oral contrast. Images reviewed with lung, soft tissue, and bone windows. Reconstructed coronal and sagittal MPR images revi ewed. All images stored on PACS. All CT scanners at this facility use dose modulation, iterative reconstruction, and/or weight based d osing when appropriate to reduce radiation dose to as low as reasonably achievable (ALARA). [facility]: Dose Right [facility]: CareDose [facility]: Dose Right [facility]: Teradose 4D [facility]: Smart [employer] RADIATION DOSE: mGy. LIMITATIONS: None. FINDINGS: LOWER CHEST: No significant findings. No nodules or infiltrates. NON-CONTRASTED LIVER, SPLEEN, ADRENALS: Evaluation limited by lack of IV contrast. No identified sign ificant masses. Multiple calcified splenic granuloma. PANCREAS: No masses. No peripancreatic inflammatory changes. GALLBLADDER: Surgically absent. RIGHT KIDNEY AND URETER: No suspicious masses. Assessment limited by lack of IV contrast. No signif icant calcifications. No hydronephrosis or hydroureter. LEFT KIDNEY AND URETER: No suspicious masses. Assessment limited by lack of IV contrast. No signifi cant calcifications. No hydronephrosis or hydroureter. AORTA AND RETROPERITONEUM: Aortoiliac atherosclerosis without aneurysm. Shotty retroperitoneal nodes without discrete adenopathy. No retroperitoneal hemorrhage. BOWEL AND PERITONEAL CAVITY: Postsurgical changes from prior Whipple without evidence of intestinal o bstruction. Area of indistinct small bowel wall thickening and mild adjacent stranding along the rig ht lower quadrant (series 3, image [id number]). Scattered colonic diverticula. Small volume abdomina l ascites, increased from prior. APPENDIX: Normal. PELVIS, BLADDER, AND ABDOMINAL WALL:Decompressed urinary bladder with intraluminal Kennedy catheter. S mall volume pelvic ascites. No lymphadenopathy. Intramuscular lipoma along the right flank. Anasar ca. Status post hysterectomy. BONES: No acute bony abnormality. No suspicious osseous lesions. L3 and L1 hemangioma oz. OTHER: No other significant finding. IMPRESSION: 1. Postsurgical changes from prior Whipple. No evidence of intestinal obstruction. Ar ea of indistinct small bowel wall thickening and mild adjacent stranding within the right lower quadr ant, possibly enteritis. Recommend correlation with patient symptoms. 2. Evidence of volume overload with small bilateral effusions, small volume ascites and diffuse anas arca. 3. Additional incidental findings as above. COMMENT: Quality ID # 436: Final reports with documentation of one or more dose reduction techniques (e.g., Automated exposure control, adjustment of the mA and/or kV according to patient size, use of iterative reconstruction technique) TECHNICAL DOCUMENTATION: JOB ID: [id number] 2010 [employer]- All Rights Reserved Reading location - IP/workstation name: [email or web address]
--- NOTE | 2020-09-16 15:03 | RADIOLOGY REPORT (SQ) ---
EXAM DESCRIPTION: CT CHEST WITHOUT IMAGES COMPLETED DATE/TIME: 09/16/2020 2:33 pm REASON FOR STUDY: sobr COMPARISON: None. TECHNIQUE: CT scan performed of the chest without intravenous contrast. Images reviewed with lung, soft tissue and bone windows. Reconstructed coronal and sagittal MPR images reviewed. All images st ored on PACS. All CT scanners at this facility use dose modulation, iterative reconstruction, and/or weight based d osing when appropriate to reduce radiation dose to as low as reasonably achievable (ALARA). [facility]: Dose Right [facility]: CareDose [facility]: Dose Right [facility]: Teradose 4D [facility]: [employer] RADIATION DOSE: CT Rad equipment meets quality standard of care and radiation dose reduction techniq ues were employed. CTDIvol: 8.2 - 11.6 mGy. DLP: 909 mGy-cm. mGy. LIMITATIONS: No technical limitations. FINDINGS: LUNGS AND PLEURA: Small bilateral pleural effusions, right greater left. Dependent consol idation, likely atelectasis. No pneumothorax. No discrete masses. HILAR AND MEDIASTINAL STRUCTURES: Scattered enlarged mediastinal nodes. Largest pretracheal node cheryl sures 11 mm in short axis, stable. HEART AND VASCULAR STRUCTURES: Cardiomegaly. Trace pericardial effusion. Scattered vascular calcifi cations. UPPER ABDOMEN: See separate report of the CT of the abdomen. THYROID AND OTHER SOFT TISSUES: No masses. No adenopathy. BONES: No acute bony abnormality. No discrete lytic or blastic osseous lesions. HARDWARE: None in the chest. OTHER: No other significant findings. IMPRESSION: Cardiomegaly with small bilateral pleural effusions, right greater than left, with mild associated basilar atelectasis. Scattered mildly enlarged mediastinal nodes, stable and nonspecific. TECHNICAL DOCUMENTATION: JOB ID: [id number] Quality ID # [id number]: Final reports with documentation of one or more dose reduction techniques (e.g., Au tomated exposure control, adjustment of the mA and/or kV according to patient size, use of iterative reconstruction technique) 2010 [employer]- All Rights Reserved Reading location - IP/workstation name: [email or web address]
--- NOTE | 2020-09-16 16:13 | ER Document Report ---
Entered by RAMIRO BOSTON SCRIBE 09/16/20 0701 Acting as scribe for:OSBALDO ROSEN MD ED Respiratory Problem - General Mode of Arrival: Medic Information source: Patient, Emergency Med Personnel TRAVEL OUTSIDE OF THE [place] IN LAST 30 DAYS: No <OSBALDO ROSEN - Last Filed: 09/16/20 16:49> <MARILEE HESTERIS - Last Filed: 09/16/20 18:17> - General Chief Complaint: Shortness Of Breath Stated Complaint: SHORTNESS OF BREATH Time Seen by Provider: 09/16/20 06:31 Primary Care Provider: DANISH SMITH MD [Primary Care Provider] - Follow up as needed Notes: This 65 year old female patient with a history of hypertension, A fib, CHF, CKD, systemic lupus, and hypothyroidism presents to the ED today via EMS with complaints of shortness of breath that started x2 nights ago. Patient states "I just can't catch my breath" and that her legs are swelling. Per nursing note, patient was in respiratory distress upon EMS arrival with O2 sats at 90% on room air and was placed on 2L supplemental O2 via NC with improvement to upper 90s. She denies any fever or chills. (OSBALDO ROSEN) - Related Data Allergies/Adverse Reactions: Iodinated Contrast Media Allergy (Verified 08/23/20 08:46) Generalized rash Past Medical History - General Information source: Patient, [facility] Records - Social History Smoking Status: Former Smoker Cigarette use (# per day): No Chew tobacco use (# tins/day): No Smoking Education Provided: No Frequency of alcohol use: None Drug Abuse: None Family History: Reviewed & Not Pertinent, Hypertension - Past Medical History Cardiac Medical History: Reports: Hx Atrial Fibrillation, Hx Congestive Heart Failure, Hx Hypertension Endocrine Medical History: Reports: Hx Hypothyroidism Malignancy Medical History: Reports: Hx Skin Cancer GI Medical History: Reports: Hx Gastroesophageal Reflux Disease Musculoskeletal Medical History: Reports Hx Arthritis, Reports Hx Systemic Lupus Erythematosus Past Surgical History: Reports: Hx Cholecystectomy, Hx Hysterectomy, Hx Whipple, Other - skin cancer removal - Immunizations Hx Diphtheria, Pertussis, Tetanus Vaccination: No <OSBALDO ROSEN - Last Filed: 09/16/20 16:49> Review of Systems - Review of Systems Constitutional: See HPI. denies: Chills, Fever EENT: No symptoms reported Cardiovascular: No symptoms reported Respiratory: See HPI, Short of breath Gastrointestinal: No symptoms reported Genitourinary: No symptoms reported Female Genitourinary: No symptoms reported Musculoskeletal: See HPI, Leg swelling Skin: No symptoms reported Hematologic/Lymphatic: No symptoms reported Neurological/Psychological: No symptoms reported -: Yes All other systems reviewed and negative <OSBALDO ROSEN - Last Filed: 09/16/20 16:49> Physical Exam - General General appearance: Alert In distress: None - HEENT Head: Normocephalic, Atraumatic Eyes: Normal Extraocular movements intact: Yes Pupils: PERRL Neck: Normal, Supple - Respiratory Respiratory status: No respiratory distress, Other - 100% on 2L NC Chest status: Nontender Breath sounds: Decreased air movement - Diminished breath sounds in the bases Chest palpation: Normal - Cardiovascular Rhythm: Regular Heart sounds: Normal auscultation Murmur: No Friction rub: No Gallop: None auscultated - Abdominal Inspection: Normal Distension: No distension Bowel sounds: Normal Tenderness: Nontender - Abdomen soft Organomegaly: No organomegaly - Back Back: Normal, Nontender - Extremities General upper extremity: Normal inspection General lower extremity: Edema - 4+ pitting edema to bilateral lower extremities - Neurological Neuro grossly intact: Yes Orientation: AAOx4 [place] Coma Scale Eye Opening: Spontaneous [place] Coma Scale Verbal: Oriented [place] Coma Scale Motor: Obeys Commands Benjamin Coma Scale Total: 15 - Psychological Associated symptoms: Normal affect, Normal mood - Skin Skin Temperature: Warm Skin Moisture: Dry Skin Color: Normal. negative: Jaundiced <OSBALDO ROSEN - Last Filed: 09/16/20 16:49> - Vital signs Vitals: Temp 98.4 F 09/16/20 02:49 Course - Laboratory Results Result Diagrams: 09/16/20 03:11 09/16/20 03:11 Critical Laboratory Results Reviewed: Yes Attending or Supervising Physician who Reviewed Labs: OSBALDO ROSEN - Radiology Results Critical Radiology Results Reviewed: No Critical Results - Consults GUANACO Will Hospitalist Time consulted: 15:40 Consulted provider: will come to ER <OSBALDO ROSEN - Last Filed: 09/16/20 16:49> - Laboratory Results Result Diagrams: 09/16/20 03:11 09/16/20 03:11 <BHARGAV HESTER - Last Filed: 09/16/20 18:17> - Re-evaluation Re-evalutation: 09/16/20 16:14 Patient is requiring O2 support to keep her saturations satisfactory. Tested patient off oxygen and she desatted down to below 90. 1 L nasal oxygen brings patient's oxygen back up to 100%. 09/16/20 16:31 Case discussed with hospitalist Poornima Will, who requested that patient have a VQ scan and consideration for a echocardiogram inasmuch as patient has an elevated D-dimer. Inasmuch as elevated D-dimer may represent pulmonary embolus patient has no eligibility to have a CT angiogram of her chest with her creatinine elevation today. Therefore a VQ scan was ordered as well as a echocardiogram. Once studies are complete patient can then be reconsidered for admission per hospitalist staff. (OSBALDO ROSEN) - Vital Signs Vital signs: Temp Pulse Resp BP Pulse Ox 97.9 F 21 H 140/89 H 100 09/16/20 14:01 09/16/20 14:01 09/16/20 14:01 09/16/20 07:01 09/16/20 16:19 Vital signs stable (OSBALDO ROSEN) - Laboratory Results Laboratory Results Interpreted: 09/16/20 09/16/20 09/16/20 03:11 03:11 03:11 WBC 12.9 H RBC 3.07 L Hgb 8.7 L Hct 27.6 L MCHC 31.7 L RDW 19.1 H Seg Neuts % (Manual) 89 H Lymphocytes % (Manual) 3 L Abs Neuts (Manual) 12.0 H Abs Lymphs (Manual) 0.4 L PT D-Dimer BUN 96 H Creatinine 2.11 H Est GFR ( Amer) 29 L Est GFR (MDRD) Non-Af 24 L Glucose 232 H Ferritin Total Bilirubin 5.2 H Direct Bilirubin 3.5 H AST 345 H ALT 257 H Alkaline Phosphatase 864 H Lactate Dehydrogenase C-Reactive Protein NT-Pro-B Natriuret Pep 400210 H Total Protein 5.8 L Albumin 3.1 L Urine Protein Urine Urobilinogen Acetaminophen 09/16/20 09/16/20 09/16/20 08:43 08:43 08:43 WBC RBC Hgb Hct MCHC RDW Seg Neuts % (Manual) Lymphocytes % (Manual) Abs Neuts (Manual) Abs Lymphs (Manual) PT 26.0 H D-Dimer 4.82 H BUN Creatinine Est GFR ( Amer) Est GFR (MDRD) Non-Af Glucose Ferritin 312.00 H Total Bilirubin Direct Bilirubin AST ALT Alkaline Phosphatase Lactate Dehydrogenase 804 H C-Reactive Protein 43.2 H NT-Pro-B Natriuret Pep Total Protein Albumin Urine Protein Urine Urobilinogen Acetaminophen < 10 L 09/16/20 09:17 WBC RBC Hgb Hct MCHC RDW Seg Neuts % (Manual) Lymphocytes % (Manual) Abs Neuts (Manual) Abs Lymphs (Manual) PT D-Dimer BUN Creatinine Est GFR ( Amer) Est GFR (MDRD) Non-Af Glucose Ferritin Total Bilirubin Direct Bilirubin AST ALT Alkaline Phosphatase Lactate Dehydrogenase C-Reactive Protein NT-Pro-B Natriuret Pep Total Protein Albumin Urine Protein 100 H Urine Urobilinogen 4.0 H Acetaminophen 09/16/20 16:20 Critical laboratory showing a BNP of 193,000, D-dimer of 4.82 and a BUN and cr eatinine is elevated with acute renal failure also elevated liver function test including bilirubin SGOT SGPT and alk phos. Ultrasound disclose no intrahepatic ductal dilatation patient is absent of her gallbladder due to surgery no other acute process was seen on ALT ultrasound and or CT scan to suggest an obstruction. (OSBALDO ROSEN) - Radiology Results Radiology Results Interpreted: 09/16/20 15:06 Chest X-Ray 09/16/20 03:17 IMPRESSION: Cardiomegaly with small bibasilar effusions and mild interstitial prominence copyright 2011 [employer]- All Rights Reserved Abdomen Ultrasound 09/16/20 07:07 IMPRESSION: 1. Mild hepatomegaly with trace perihepatic fluid. 2. Prior cholecystectomy. Chest CT 09/16/20 13:16 IMPRESSION: Cardiomegaly with small bilateral pleural effusions, right greater than left, with mild associated basilar atelectasis. Scattered mildly enlarged mediastinal nodes, stable and nonspecific. Abdomen/Pelvis CT 09/16/20 13:17 IMPRESSION: 1. Postsurgical changes from prior Whipple. No evidence of intestinal obstruction. Area of indistinct small bowel wall thickening and mild adjacent stranding within the right lower quadrant, possibly enteritis. Recommend correlation with patient symptoms. 2. Evidence of volume overload with small bilateral effusions, small volume ascites and diffuse anasarca. 3. Additional incidental findings as above. 09/16/20 16:22 6 x-ray shows small bibasilar effusions and interstitial prominence. Abdominal ultrasound shows mild hepatomegaly with trace perihepatic fluid prior cholecystectomy Chest CT shows cardiomegaly bilateral pleural effusions scattered enlarged mediastinal nodes nonspecific Abdomen pelvis CT shows postsurgical change from Whipple no intestinal obstruction mild stranding in the right lower quadrant indistinct for small bowel thickening volume overload with bilateral pleural effusions small volume ascites and diffuse anasarca (OSBALDO ROSEN) - EKG Interpretation by Me Additional EKG results interpreted by me: 09/16/20 16:24 Twelve-lead EKG shows normal sinus rhythm rate of 73 probable left atrial abnormality nonspecific intraventricular conduction delay LVH with secondary repull changes left axis deviation MT intervals within normal range QRS within normal range QT interval borderline elevated T wave inversions consistent system with LVH with secondary repull in the lateral chest leads no STEMI. (OSBALDO ROSEN) Discharge <OSBALDO ROSEN - Last Filed: 09/16/20 16:49> - Discharge Admitting Provider: Juanito (Hospitalist) Unit Admitted: Medical Floor <BHARGAV HESTER - Last Filed: 09/16/20 18:17> - Discharge Clinical Impression: Congestive heart failure, Acute renal failure, Elevated liver function tests, Systemic lupus erythematosus arthritis Condition: Fair Disposition: ADMITTED INPATIENT Referrals: DANISH SMITH MD [Primary Care Provider] - Follow up as needed I personally performed the services described in the documentation, reviewed and edited the documentation which was dictated to the scribe in my presence, and it accurately records my words and actions.
--- NOTE | 2020-09-16 18:04 | RADIOLOGY REPORT (SQ) ---
EXAM DESCRIPTION: NM LUNG PERF SCAN IMAGES COMPLETED DATE/TIME: 09/16/2020 5:49 pm REASON FOR STUDY: elevated d dimer/acute kidney injury COMPARISON: None. RADIONUCLIDE AND DOSE: 5.8 millicuries TC-99m MAA Intravenous TECHNIQUE: Eight views of the lungs acquired following injection of MAA. LIMITATIONS: None. FINDINGS: PERFUSION: Perfusion images with normal homogenous activity and no wedge-shaped or segment al defects. OTHER: No other significant finding. IMPRESSION: NORMAL PERFUSION LUNG SCAN. TECHNICAL DOCUMENTATION: JOB ID: [id number] 2010 [email or web address]- All Rights Reserved Reading location - IP/workstation name: [email or web address]
[2020-09-16] MEDS ORDERED: ACETAMINOPHEN 325 MG TABLET PO PRN (18:20)
[2020-09-16] MEDS ORDERED: MAGNESIUM HYDROXIDE SUSP 30 ML UDCUP PO PRN (18:20)
[2020-09-16] MEDS ORDERED: MAG HYDROX/AL HYDROX/SIMETH SUSP 30 ML UDCUP PO PRN (18:20)
--- NOTE | 2020-09-16 18:37 | PDOC H&P ---
History of Present Illness Admission Date/PCP: DANISH SMITH MD Patient complains of: shortness of breath History of Present Illness: DANDRE SANTOS is a 65 year old female with a past medical history of SLE, chronic systolic CHF, hypertension, hyperlipidemia, hypothyroidism, ITP, on high-dose steroids, who was recently admitted to our facility last month for CHF exacerbation and new onset atrial fibrillation RVR, who presented to the emergency department today with a complaint of 24 hours of rapidly worsening shortness of breath. She denies all other symptoms; specifically no fever, palpitations, chest pain, cough, abdominal pain, nausea, diarrhea, or peripheral edema. Evaluation in the emergency department revealed stable vital signs other than m oderate hypertension (155/95). CBC demonstrated leukocytosis (12.9) baseline anemia (hemoglobin 8.7; improved from last admission), PT/INR appropriate for patient on chronic anticoagulation (PT 26/INR 2.38), however, D-dimer elevated 4.82. Chemistry was notable for PAWEL (CR 2.11/BUN 96; baseline CR 1.3). LFTs were elevated (T bili 5.2, AST 345, ALT 257, alk phos 864). Ferritin, LDH, and CRP all mildly elevated; Covid pending. Troponin indeterminately elevated but flat; 0.062-> 0.064. proBNP markedly elevated to 193,000 (130,000 last admission). Urinalysis negative. EKG shows normal sinus rhythm. Chest x-ray demonstrated cardiomegaly with small bibasilar effusions. Abdominal ultrasound with mild hepatomegaly and trace perihepatic fluid. Chest CT/abdomen/pelvis showed cardiomegaly with small bilateral pleural effusions, basilar atelectasis, scattered mildly enlarged mediastinal nodes stable from prior exam, indistinct small bowel wall thickening within the right lower quadrant possibly enteritis, and evidence of anasarca. VQ scan pending. Patient is referred to the hospitalist service for further evaluation management of the above stay complaints and findings. Past Medical History Cardiac Medical History: Reports: Atrial Fibrillation, Congestive Heart Failure, Hypertension Denies: Coronary Artery Disease, Myocardial Infarction, Hyperlipidema, Pulmonary Embolism Pulmonary Medical History: Denies: Asthma, Chronic Obstructive Pulmonary Disease (COPD) Neurological Medical History: Denies: Ischemic CVA, Seizures Endocrine Medical History: Reports: Hypothyroidism, Obesity, Other - SLE Denies: Diabetes Mellitus Type 2, Hyperthyroidism Renal/ Medical History: Reports: Chronic Kidney Disease Malignancy Medical History: Reports: Skin Cancer GI Medical History: Reports: Gastroesophageal Reflux Disease Denies: Cirrhosis, Hepatitis, Hiatal Hernia Musculoskeltal Medical History: Reports: Arthritis Denies: Fibromyalgia Skin Medical History: Denies: Eczema, Psoriasis Psychiatric Medical History: Denies: Depression Hematology: Reports: Anemia - Chronic Denies: Sickle Cell Disease, Bleeding Tendencies Hematology History Note: ITP Past Surgical History Past Surgical History: Reports: Cholecystectomy, Hysterectomy, Other - skin cancer removal Denies: Amputation, Mastectomy, Pacemaker Social History Information Source: Patient, [facility] Records Lives with: Alone Smoking Status: Former Smoker Electronic Cigarette use?: No Frequency of Alcohol Use: None Hx Recreational Drug Use: No Drugs: None Hx Prescription Drug Abuse: No Family History Family History: Reviewed & Not Pertinent, Hypertension Parental Family History Reviewed: Yes Children Family History Reviewed: Yes Sibling(s) Family History Reviewed.: Yes Medication/Allergy Home Medications: Levothyroxine Sodium [Synthroid] 200 mcg PO Q6AM 06/14/20 Multivitamin [Tab-A-Carter (Multiple Vitamin) Tablet] 1 tab PO DAILY 06/23/20 Atorvastatin Calcium [Lipitor 40 mg Tablet] 40 mg PO QHS 30 Days #30 tablet 06/24/20 Prednisone [Deltasone 20 mg Tablet] 20 mg PO BID 08/23/20 Apixaban [Eliquis 5 mg Tablet] 5 mg PO BID #60 tablet 08/25/20 Metoprolol Succinate 100 mg PO DAILY #30 tab.er.24h 08/25/20 Calcium Carbonate [Calcium] 600 mg PO DAILY 09/16/20 Furosemide [Lasix 40 mg Tablet] 40 mg PO BID 09/16/20 Pantoprazole Sodium [Protonix [address] Tablet] 20 mg PO DAILY 09/16/20 Sacubitril/Valsartan [Entresto 24 mg/26 mg Tablet] 1 tab PO BID 09/16/20 Allergies/Adverse Reactions: Iodinated Contrast Media Allergy (Verified 08/23/20 08:46) Generalized rash Review of Systems Constitutional: PRESENT: fatigue. ABSENT: chills, fever(s), headache(s), weight gain, weight loss Eyes: ABSENT: visual disturbances Ears: ABSENT: hearing changes Cardiovascular: PRESENT: edema. ABSENT: chest pain, dyspnea on exertion, orthropnea, palpitations Respiratory: PRESENT: dyspnea. ABSENT: cough, hemoptysis Gastrointestinal: ABSENT: abdominal pain, constipation, diarrhea, hematemesis, hematochezia, nausea, vomiting Genitourinary: ABSENT: dysuria, hematuria Musculoskeletal: ABSENT: joint swelling Integumentary: ABSENT: rash, wounds Neurological: ABSENT: abnormal gait, abnormal speech, confusion, dizziness, focal weakness, syncope Psychiatric: ABSENT: anxiety, depression, homidical ideation, suicidal ideation Endocrine: ABSENT: cold intolerance, heat intolerance, polydipsia, polyuria Hematologic/Lymphatic: ABSENT: easy bleeding, easy bruising Physical Exam Vital Signs: Temp Pulse Resp BP Pulse Ox 97.7 F 16 126/84 H 100 09/16/20 13:01 09/16/20 13:01 09/16/20 13:01 09/16/20 07:01 Intake & Output 09/15/20 09/16/20 09/17/20 06:59 06:59 06:59 Weight 79.379 kg General appearance: PRESENT: no acute distress, cooperative, obese, well- developed, well-nourished Head exam: PRESENT: atraumatic, normocephalic Eye exam: PRESENT: conjunctiva pink, EOMI, PERRLA. ABSENT: scleral icterus Mouth exam: PRESENT: moist, tongue midline Respiratory exam: PRESENT: clear to auscultation beth, decreased breath sounds - throughout, symmetrical, unlabored, other - supplemental oxygen. ABSENT: rales, rhonchi, wheezes Cardiovascular exam: PRESENT: RRR, +S1, +S2. ABSENT: diastolic murmur, rubs, systolic murmur Pulses: PRESENT: normal dorsalis pedis pul Vascular exam: PRESENT: normal capillary refill GI/Abdominal exam: PRESENT: normal bowel sounds, soft. ABSENT: distended, guarding, mass, organolmegaly, rebound, tenderness Rectal exam: PRESENT: deferred Extremities exam: PRESENT: full ROM, pedal edema - bilateral, +1 edema - LLE, +2 edema - pitting RLE. ABSENT: calf tenderness, clubbing Neurological exam: PRESENT: alert, awake, oriented to person, oriented to place, oriented to time, oriented to situation, CN II-XII grossly intact. ABSENT: motor sensory deficit Psychiatric exam: PRESENT: appropriate affect, normal mood. ABSENT: homicidal ideation, suicidal ideation Skin exam: PRESENT: dry, intact, warm. ABSENT: cyanosis, rash Results Laboratory Results: 09/16/20 03:11 09/16/20 03:11 09/16/20 09/16/20 09/16/20 03:11 03:11 08:43 WBC 12.9 H RBC 3.07 L Hgb 8.7 L Hct 27.6 L MCV 90 MCH 28.4 MCHC 31.7 L RDW 19.1 H Plt Count 162 Seg Neutrophils % Not Reportable Sodium 142.8 Potassium 4.6 Chloride 105 Carbon Dioxide 24 Anion Gap 14 BUN 96 H Creatinine 2.11 H Est GFR ( Amer) 29 L Glucose 232 H Lactic Acid Calcium 8.8 Ferritin 312.00 H Total Bilirubin 5.2 H AST 345 H Alkaline Phosphatase 864 H C-Reactive Protein 43.2 H Total Protein 5.8 L Albumin 3.1 L Lipase 276.8 Urine Color Urine Appearance Urine pH Ur Specific [place] Urine Protein Urine Glucose (UA) Urine Ketones Urine Blood Urine Nitrite Ur Leukocyte Esterase Urine WBC (Auto) Urine RBC (Auto) 09/16/20 09/16/20 08:43 09:17 WBC RBC Hgb Hct MCV MCH MCHC RDW Plt Count Seg Neutrophils % Sodium Potassium Chloride Carbon Dioxide Anion Gap BUN Creatinine Est GFR ( Amer) Glucose Lactic Acid 2.1 Calcium Ferritin Total Bilirubin AST Alkaline Phosphatase C-Reactive Protein Total Protein Albumin Lipase Urine Color JOES Urine Appearance SLIGHTLY-CLOUDY Urine pH 5.0 Ur Specific [place] 1.016 Urine Protein 100 H Urine Glucose (UA) NEGATIVE Urine Ketones NEGATIVE Urine Blood NEGATIVE Urine Nitrite NEGATIVE Ur Leukocyte Esterase NEGATIVE Urine WBC (Auto) 4 Urine RBC (Auto) 5 09/16/20 09/16/20 09/16/20 03:11 08:43 13:11 Troponin I 0.062 0.064 NT-Pro-B Natriuret Pep [id number] H Impressions: Chest X-Ray 09/16/20 03:17 IMPRESSION: Cardiomegaly with small bibasilar effusions and mild interstitial prominence copyright 2011 [employer]- All Rights Reserved Abdomen Ultrasound 09/16/20 07:07 IMPRESSION: 1. Mild hepatomegaly with trace perihepatic fluid. 2. Prior cholecystectomy. Chest CT 09/16/20 13:16 IMPRESSION: Cardiomegaly with small bilateral pleural effusions, right greater than left, with mild associated basilar atelectasis. Scattered mildly enlarged mediastinal nodes, stable and nonspecific. Abdomen/Pelvis CT 09/16/20 13:17 IMPRESSION: 1. Postsurgical changes from prior Whipple. No evidence of intestinal obstruction. Area of indistinct small bowel wall thickening and mild adjacent stranding within the right lower quadrant, possibly enteritis. Recommend correlation with patient symptoms. 2. Evidence of volume overload with small bilateral effusions, small volume ascites and diffuse anasarca. 3. Additional incidental findings as above. Assessment and Plan - Diagnosis (1) Acute respiratory failure with hypoxia Is this a current diagnosis for this admission?: Yes Plan: Likely secondary to CHF exacerbation. Suspicion for COVID pna. D.dimer elevated; fortunately VQ is negative. Remaining evaluation and management as above. (2) Suspected COVID-19 virus infection Is this a current diagnosis for this admission?: Yes Plan: We will obtain COVID testing. D-dimer 4.82, ferritin 312, CRP 43.2, LDH 804. Continue home dose Eliquis r/t d-dimer results. Provide supplemental oxygen as needed maintain saturations greater than 89%. As needed nebulizer treatments. IVermectin 12 mg x2 doses Solumedrol. Zinc, vitamin D, vitamin C, and melatonin supplementation. Encourage pulmonary toilet. Isolation precautions. (3) Congestive heart failure Is this a current diagnosis for this admission?: Yes Plan: Evidence of fluid volume overload on exam. proBNP 193,000 Troponin indeterminate but flat x2 TTE (08/23/20) showed severe LV dysfunction with EF 20-25% and moderate RV dysfunction, no WMA. Followed by Dr. Wren as outpatient. Continue home dose Metoprolol, Entresto, and spironolactone. Increase Entresto as BP allows. Diurese with IV Furosemide. Continue daily statin and Eliquis. Consider cardiology consultation. Cardiac Diet. Fluid restricted. Daily weights, strict I&Os (4) Acute on chronic renal failure Qualifiers: Acute renal failure type: unspecified Chronic kidney disease stage: stage 3 (moderate) Chronic kidney disease stage 3 subtype: stage 3b (GFR 30-44) Qualified Code(s): N17.9 - Acute kidney failure, unspecified; N18.32 - Chronic kidney disease, stage 3b Is this a current diagnosis for this admission?: Yes Plan: CR 2.11/BUN 96; baseline CR 1.3 Optimize cardiac output. Cautiously diurese. Avoid nephrotoxic medications as able; renally dose where appropriate. Strict I&Os Consider nephrology consultation. Follow chemistries. (5) Anemia Qualifiers: Anemia type: other cause Other causes of anemia: other cause, not c lassified Qualified Code(s): D64.89 - Other specified anemias Is this a current diagnosis for this admission?: Yes Plan: Hgb 8.7; improved from admission last month. No evidence of bleeding. Follow CBC. (6) Hypertension Qualifiers: Hypertension type: essential hypertension Qualified Code(s): I10 - Essential (primary) hypertension Is this a current diagnosis for this admission?: Yes Plan: Hypertensive; 155/95, w/ evidence of fluid volume overload. Continue home dose antihypertensives; metoprolol, Entresto, and spironolactone. Furosemide as above. Adjust medications as indicated. Cardiac diet. Outpatient PCP follow up. (7) Hypothyroidism Qualifiers: Hypothyroidism type: acquired Qualified Code(s): E03.9 - Hypothyroidism, unspecified Is this a current diagnosis for this admission?: Yes Plan: Continue home dose levothyroxine. (8) Systemic lupus erythematosus arthritis Is this a current diagnosis for this admission?: Yes Plan: Solu-medrol r/t high suspicion for VOCID in setting of hypoxia. Resume home dose Prednisone at discharge. Outpatient follow up with Rheumatology. (9) Chronic ITP (idiopathic thrombocytopenia) Is this a current diagnosis for this admission?: Yes Plan: Plt currently 162 As low as 66 last month. Continue home dose Eliquis; hold for PLT <50 or active bleeding. Solu-medrol r/t high suspicion for COVID in setting of hypoxia. Resume home dose Prednisone at discharge. Consider Hematology consultation. Follow daily CBC (10) Elevated liver function tests Is this a current diagnosis for this admission?: Yes Plan: Multifactorial; possible r/t CHF exacerbation. High suspicion COVID which is also associated with elevated LFTs. If remained elevated, or worsen, will need to consider discontinuing Entresto. Follow up chemistry. - Time Time Spent with patient: 35 or more minutes Medications reviewed and adjusted accordingly: Yes Anticipated Discharge Disposition: Home with Home Health Anticipated Discharge Timeframe: TBD - Inpatient Certification Based on my medical assessment, after consideration of the patient's comorbidities, presenting symptoms, or acuity I expect that the services needed warrant INPATIENT care.: Yes I certify that my determination is in accordance with my understanding of Medicare's requirements for reasonable and necessary INPATIENT services [42 CFR 412.3e].: Yes Medical Necessity: Significant Comorbidiites Make Outpatient Treatment Too Risky, Need Close Monitoring Due to Risk of Patient Decompensation, Need For Continuous Telemetry Monitoring, Risk of Diagnosis Which Will Require Inpatient Eval/Care/Monitoring
--- NOTE | 2020-09-16 21:57 | EKG REPORT ---
SEVERITY:- ABNORMAL ECG - SINUS RHYTHM PROBABLE LEFT ATRIAL ABNORMALITY NONSPECIFIC INTRAVENTRICULAR CONDUCTION DELAY LVH WITH SECONDARY REPOLARIZATION ABNORMALITY : Confirmed by: Des Palacios 16-Sep-2020 21:57:05
[2020-09-16] MEDS: FUROSEMIDE INJ/PF 40 MG/4 ML SDV IV SCH (22:05)
[2020-09-16] MEDS: METHYLPREDNISOLONE INJ 40 MG/1 ML SDV IV SCH (22:05)
[2020-09-16] MEDS: ATORVASTATIN CALCIUM 40 MG TABLET PO SCH (22:05)
[2020-09-17] MEDS: FUROSEMIDE INJ/PF 40 MG/4 ML SDV IV SCH ×2 (05:25→14:25)
[2020-09-17] MEDS: LEVOTHYROXINE SODIUM 0.1 MG TABLET PO SCH (05:25)
[2020-09-17] MEDS: IVERMECTIN 3 MG TABLET PO SCH (05:30)
[2020-09-17] MEDS ORDERED: LEVOTHYROXINE SODIUM 200 MCG PO SCH (06:00)
[2020-09-17] MEDS ORDERED: (PENDING PHARMACY ID) (Metoprolol Succinate [Metoprolol Succinate] 100 MG Tab.Er.24h) PO SCH (10:00)
[2020-09-17] MEDS: ASCORBIC ACID 500 MG TABLET PO SCH ×2 (10:22→17:39)
[2020-09-17] MEDS: METOPROLOL SUCCINATE 50 MG TAB.SR.24H PO SCH (10:22)
[2020-09-17] MEDS: PANTOPRAZOLE SODIUM 20 MG TABLET.DR PO SCH (10:22)
[2020-09-17] MEDS: APIXABAN 5 MG TABLET PO SCH ×2 (10:23→17:38)
[2020-09-17] MEDS: CHOLECALCIFEROL (D3) 1,000 UNIT (25 MCG) TABLET PO SCH (10:23)
[2020-09-17] MEDS: ASPIRIN 81 MG TABLET, ENT COATED PO SCH (10:23)
[2020-09-17] MEDS: DOCUSATE SODIUM 100 MG CAPSULE PO SCH ×2 (10:23→10:31)
[2020-09-17] MEDS: CALCIUM CARBONATE 600 MG TABLET PO SCH (10:23)
[2020-09-17] MEDS: SPIRONOLACTONE 25 MG TABLET PO SCH (10:23)
[2020-09-17] MEDS: MULTIVITAMIN TABLET PO SCH (10:23)
[2020-09-17] MEDS: METHYLPREDNISOLONE INJ 40 MG/1 ML SDV IV SCH ×2 (10:23→22:01)
[2020-09-17] MEDS: SACUBITRIL/VALSARTAN 24 MG/26 MG TABLET PO SCH ×2 (10:24→17:38)
[2020-09-17] MEDS: ZINC SULFATE 220 MG CAPSULE PO SCH (10:26)
--- NOTE | 2020-09-17 11:16 | PDOC PROGRESS REPORT ---
Subjective Date:: 09/17/20 Subjective:: Patient reports feeling slightly better. She is experiencing some stiffness from being in bed. She does feel less short of breath. Reason For Visit: ACUTE RESP FAILURE W HXPOXIA,PAWEL,HEART FAILURE, Physical Exam Vital Signs: Temp Pulse Resp BP Pulse Ox 97.9 F 76 18 130/74 H 100 09/17/20 07:53 09/17/20 07:53 09/17/20 07:53 09/17/20 07:53 09/17/20 07:53 Intake & Output 09/16/20 09/17/20 09/18/20 06:59 06:59 06:59 Intake Total 235 Output Total 300 Balance -65 Weight 79.379 kg 79.3 kg General appearance: PRESENT: no acute distress, cooperative, well-developed Head exam: PRESENT: atraumatic, normocephalic Eye exam: PRESENT: conjunctiva pale, EOMI. ABSENT: scleral icterus Ear exam: PRESENT: normal external ear exam. ABSENT: bleeding, drainage Mouth exam: PRESENT: moist, tongue midline Respiratory exam: PRESENT: rales - Right base, symmetrical, unlabored. ABSENT: accessory muscle use, prolonged expiratory phas, rhonchi, tachypnea, wheezes Cardiovascular exam: PRESENT: RRR - Appears to be in sinus rhythm by auscultation and palpation of pulse, +S1, +S2, systolic murmur - 3/6. ABSENT: bradycardia, diastolic murmur, irregular rhythm, tachycardia GI/Abdominal exam: PRESENT: normal bowel sounds, soft. ABSENT: distended, guar ding, tenderness Rectal exam: PRESENT: deferred Gentrourinary exam: PRESENT: indwelling catheter Extremities exam: PRESENT: +1 edema. ABSENT: clubbing, tenderness Musculoskeletal exam: PRESENT: ambulatory, normal inspection. ABSENT: deformity, dislocation Neurological exam: PRESENT: alert, awake, oriented to person, oriented to place, oriented to time, oriented to situation, CN II-XII grossly intact. ABSENT: altered Psychiatric exam: PRESENT: flat affect. ABSENT: agitated, anxious Focused psych exam: ABSENT: delusional, paranoid, restlessness Skin exam: PRESENT: dry, pallor, warm. ABSENT: rash Results Laboratory Results: 09/16/20 03:11 09/16/20 03:11 09/16/20 09/16/20 09/16/20 03:11 08:43 13:11 Troponin I 0.062 0.064 NT-Pro-B Natriuret Pep [id number] H 09/16/20 18:06 Troponin I 0.058 NT-Pro-B Natriuret Pep Impressions: Chest X-Ray 09/16/20 03:17 IMPRESSION: Cardiomegaly with small bibasilar effusions and mild interstitial prominence copyright 2011 [employer]- All Rights Reserved Abdomen Ultrasound 09/16/20 07:07 IMPRESSION: 1. Mild hepatomegaly with trace perihepatic fluid. 2. Prior cholecystectomy. Chest CT 09/16/20 13:16 IMPRESSION: Cardiomegaly with small bilateral pleural effusions, right greater than left, with mild associated basilar atelectasis. Scattered mildly enlarged mediastinal nodes, stable and nonspecific. Abdomen/Pelvis CT 09/16/20 13:17 IMPRESSION: 1. Postsurgical changes from prior Whipple. No evidence of intestinal obstruction. Area of indistinct small bowel wall thickening and mild adjacent stranding within the right lower quadrant, possibly enteritis. Recommend correlation with patient symptoms. 2. Evidence of volume overload with small bilateral effusions, small volume ascites and diffuse anasarca. 3. Additional incidental findings as above. Lung Scan-VQ NM 09/16/20 15:45 IMPRESSION: NORMAL PERFUSION LUNG SCAN. Assessment and Plan - Diagnosis (1) Acute respiratory failure with hypoxia Is this a current diagnosis for this admission?: Yes (2) Suspected COVID-19 virus infection Is this a current diagnosis for this admission?: Yes (3) Acute on chronic systolic (congestive) heart failure Is this a current diagnosis for this admission?: Yes (4) Acute on chronic renal failure Qualifiers: Acute renal failure type: unspecified Chronic kidney disease stage: stage 3 (moderate) Chronic kidney disease stage 3 subtype: stage 3b (GFR 30-44) Qualified Code(s): N17.9 - Acute kidney failure, unspecified; N18.32 - Chronic kidney disease, stage 3b Is this a current diagnosis for this admission?: Yes (5) Anemia Qualifiers: Anemia type: other cause Other causes of anemia: other cause, not classified Qualified Code(s): D64.89 - Other specified anemias Is this a current diagnosis for this admission?: Yes (6) Hypertension Qualifiers: Hypertension type: essential hypertension Qualified Code(s): I10 - Essential (primary) hypertension Is this a current diagnosis for this admission?: Yes (7) Hypothyroidism Qualifiers: Hypothyroidism type: acquired Qualified Code(s): E03.9 - Hypothyroidism, unspecified Is this a current diagnosis for this admission?: Yes (8) Systemic lupus erythematosus arthritis Is this a current diagnosis for this admission?: Yes (9) Chronic ITP (idiopathic thrombocytopenia) Is this a current diagnosis for this admission?: Yes (10) Elevated liver function tests Is this a current diagnosis for this admission?: Yes - Plan Summary Summary: (1) Acute respiratory failure with hypoxia (2) Suspected COVID-19 virus infection (3) Acute on chronic systolic (congestive) heart failure (4) Acute on chronic renal failure (5) Anemia (6) Hypertension (7) Hypothyroidism (8) Systemic lupus erythematosus arthritis (9) Chronic ITP (idiopathic thrombocytopenia) (10) Elevated liver function tests 09/17/2020 Respiratory failure with hypoxia-currently on 2 L nasal cannula maintaining saturation in the high 90s. Could probably tolerate 1 L. Continue to monitor. Suspected COVID-19 viral infection-continue current treatment regimen based on clinical aspects. Acute on chronic systolic heart failure-the patient has an ejection fraction of only 20 to 25%. Significant decrease in left ventricular wall motion. Continue to try to optimize medication regimen and fluid balance. Acute on chronic kidney failure-BUN and creatinine have increased. I am going to have the IV Lasix dosing and recheck labs tomorrow. The patient may in fact need a small amount of IV fluids. Anemia-continue to monitor CBC. Hemoglobin of 8.7 is in fact better than her last admission. No evidence of sheron bleeding. Hypertension-continue to monitor blood pressure and telemetry. Adjust medications accordingly. Hypothyroidism-continue levothyroxine Lupus-continue current dose of Solu-Medrol. Return to baseline prednisone dose at discharge ITP-platelet count is 140. Continue to follow closely. It is slightly down from admission value of 162. Continue Eliquis. Consider hematology consultation. Elevated liver function tests-likely related to exacerbation of heart failure. Continue to monitor. - Time Time Spent with patient: 15-24 minutes Medications reviewed and adjusted accordingly: Yes Anticipated Discharge Disposition: Home with Home Health Anticipated Discharge Timeframe: Unknown
[2020-09-17 13:11] LABS: ALBUMIN 2.9 g/dL (3.5-5.0); ALKALINE PHOSPHATASE 764 U/L (38-126); ANION GAP 8 (5-19); ASPARTATE AMINO TRANSFERASE 210 U/L (14-36); BILIRUBIN,DIRECT 2.8 mg/dL (0.0-0.4); BILIRUBIN,TOTAL 4.2 mg/dL (0.2-1.3); BLOOD UREA NITROGEN 107 mg/dL (7-20); CALCIUM 8.5 mg/dL (8.4-10.2); CARBON DIOXIDE 29 mmol/L (22-30); CHLORIDE 103 mmol/L (98-107); GLUCOSE 239 mg/dL (75-110); POTASSIUM 4.1 mmol/L (3.6-5.0); TOTAL PROTEIN 5.4 g/dL (6.3-8.2)
[2020-09-17 13:16] LABS: HEMATOCRIT 24.3 % (36.0-47.0); MEAN CORPUSCULAR HEMOGLOBIN 29.4 pg (27.0-33.4); MEAN CORPUSCULAR HGB CONC 32.7 g/dL (32.0-36.0); MEAN CORPUSCULAR VOLUME 90 fl (80-97); PLATELET COUNT 143 10^3/uL (150-450); RED CELL DISTRIBUTION WIDTH 19.2 % (11.5-14.0); WHITE BLOOD COUNT 10.5 10^3/uL (4.0-10.5)
[2020-09-17 13:24] LABS: HEMOGLOBIN 7.9 g/dL (12.0-15.5)
[2020-09-17] MEDS: ALBUTEROL SULFATE 0.083% NEB 2.5 MG/3 ML AMPUL NEB PRN (17:49)
[2020-09-17] MEDS: FUROSEMIDE INJ/PF 20 MG/2 ML SDV IV SCH (22:01)
[2020-09-17] MEDS: ATORVASTATIN CALCIUM 40 MG TABLET PO SCH (22:01)
[2020-09-18 05:22] LABS: HEMATOCRIT 24.8 % (36.0-47.0); MEAN CORPUSCULAR HEMOGLOBIN 28.8 pg (27.0-33.4); MEAN CORPUSCULAR HGB CONC 32.2 g/dL (32.0-36.0); MEAN CORPUSCULAR VOLUME 89 fl (80-97); PLATELET COUNT 150 10^3/uL (150-450); RED BLOOD COUNT 2.78 10^6/uL (3.72-5.28); WHITE BLOOD COUNT 10.3 10^3/uL (4.0-10.5)
[2020-09-18 06:01] LABS: ALBUMIN 2.9 g/dL (3.5-5.0); ALKALINE PHOSPHATASE 789 U/L (38-126); ANION GAP 12 (5-19); ASPARTATE AMINO TRANSFERASE 151 U/L (14-36); BILIRUBIN,DIRECT 1.9 mg/dL (0.0-0.4); BILIRUBIN,TOTAL 2.9 mg/dL (0.2-1.3); BLOOD UREA NITROGEN 117 mg/dL (7-20); CALCIUM 8.4 mg/dL (8.4-10.2); CARBON DIOXIDE 24 mmol/L (22-30); CHLORIDE 105 mmol/L (98-107); GLUCOSE 270 mg/dL (75-110); POTASSIUM 4.7 mmol/L (3.6-5.0); TOTAL PROTEIN 5.6 g/dL (6.3-8.2)
[2020-09-18] MEDS: FUROSEMIDE INJ/PF 20 MG/2 ML SDV IV SCH ×2 (06:06→21:32)
[2020-09-18] MEDS: LEVOTHYROXINE SODIUM 0.1 MG TABLET PO SCH (06:06)
[2020-09-18] MEDS: MULTIVITAMIN TABLET PO SCH (12:33)
[2020-09-18] MEDS: CALCIUM CARBONATE 600 MG TABLET PO SCH (12:33)
[2020-09-18] MEDS: ASCORBIC ACID 500 MG TABLET PO SCH ×2 (12:33→19:06)
[2020-09-18] MEDS: APIXABAN 5 MG TABLET PO SCH ×2 (12:33→19:06)
[2020-09-18] MEDS: CHOLECALCIFEROL (D3) 1,000 UNIT (25 MCG) TABLET PO SCH (12:33)
[2020-09-18] MEDS: ASPIRIN 81 MG TABLET, ENT COATED PO SCH (12:33)
[2020-09-18] MEDS: METOPROLOL SUCCINATE 50 MG TAB.SR.24H PO SCH (12:33)
[2020-09-18] MEDS: METHYLPREDNISOLONE INJ 40 MG/1 ML SDV IV SCH ×2 (12:34→21:32)
[2020-09-18] MEDS: PANTOPRAZOLE SODIUM 20 MG TABLET.DR PO SCH (12:34)
[2020-09-18] MEDS: DOCUSATE SODIUM 100 MG CAPSULE PO SCH (12:35)
[2020-09-18] MEDS: SACUBITRIL/VALSARTAN 24 MG/26 MG TABLET PO SCH ×2 (12:35→19:08)
[2020-09-18] MEDS: ZINC SULFATE 220 MG CAPSULE PO SCH (12:35)
[2020-09-18] MEDS: SPIRONOLACTONE 25 MG TABLET PO SCH (12:37)
[2020-09-18] MEDS: ALBUTEROL SULFATE 0.083% NEB 2.5 MG/3 ML AMPUL NEB PRN (14:55)
--- NOTE | 2020-09-18 15:11 | PDOC PROGRESS REPORT ---
Subjective Date:: 09/18/20 Subjective:: Patient's is at the bedside. Reviewed her case. She is feeling better. BNP is down to 143,000. She does report that the breathing feels easier. She still requires supplemental oxygen. Reason For Visit: ACUTE RESP FAILURE W HXPOXIA,PAWEL,HEART FAILURE, Physical Exam Vital Signs: Temp Pulse Resp BP Pulse Ox 97.3 F 72 19 141/73 H 100 09/18/20 12:00 09/18/20 12:00 09/18/20 12:00 09/18/20 12:00 09/18/20 12:00 Intake & Output 09/17/20 09/18/20 09/19/20 06:59 06:59 06:59 Intake Total 235 1282 456 Output Total 300 1920 Balance -65 -638 456 Weight 79.3 kg 79.2 kg General appearance: PRESENT: cooperative, mild distress, well-developed Head exam: PRESENT: atraumatic, normocephalic Eye exam: PRESENT: conjunctiva pale, EOMI. ABSENT: scleral icterus Ear exam: PRESENT: normal external ear exam. ABSENT: bleeding, drainage Mouth exam: PRESENT: moist, tongue midline Neck exam: ABSENT: carotid bruit, JVD, lymphadenopathy Respiratory exam: PRESENT: rales - Bilateral bases, symmetrical, unlabored. ABSENT: accessory muscle use, rhonchi, tachypnea, wheezes Cardiovascular exam: PRESENT: RRR, +S1, +S2, systolic murmur - 3/6. ABSENT: b radycardia, diastolic murmur, irregular rhythm, tachycardia GI/Abdominal exam: PRESENT: normal bowel sounds, soft. ABSENT: distended, tenderness Rectal exam: PRESENT: deferred Gentrourinary exam: ABSENT: indwelling catheter Extremities exam: PRESENT: +1 edema Musculoskeletal exam: PRESENT: ambulatory, normal inspection. ABSENT: deformity, dislocation Neurological exam: PRESENT: alert, awake, oriented to person, oriented to place, oriented to time, oriented to situation, CN II-XII grossly intact. ABSENT: altered Psychiatric exam: PRESENT: appropriate affect. ABSENT: agitated, anxious Focused psych exam: ABSENT: delusional, paranoid, restlessness Skin exam: PRESENT: dry, pallor, warm. ABSENT: rash Results Laboratory Results: 09/18/20 04:28 09/18/20 04:28 09/18/20 09/18/20 09/18/20 04:28 04:28 07:00 WBC 10.3 RBC 2.78 L Hgb 8.0 L Hct 24.8 L MCV 89 MCH 28.8 MCHC 32.2 RDW 19.0 H Plt Count 150 Sodium 141.0 Potassium 4.7 Chloride 105 Carbon Dioxide 24 Anion Gap 12 BUN 117 H Creatinine 2.07 H Est GFR ( Amer) 29 L Glucose 270 H Calcium 8.4 Magnesium 2.3 Total Bilirubin 2.9 H AST 151 H Alkaline Phosphatase 789 H Total Protein 5.6 L Albumin 2.9 L Stool Occult Blood POSITIVE 09/16/20 09/16/20 09/16/20 03:11 08:43 13:11 Troponin I 0.062 0.064 NT-Pro-B Natriuret Pep [id number] H 09/16/20 09/18/20 18:06 04:28 Troponin I 0.058 NT-Pro-B Natriuret Pep [id number] H Impressions: Chest X-Ray 09/16/20 03:17 IMPRESSION: Cardiomegaly with small bibasilar effusions and mild interstitial prominence copyright 2011 [employer]- All Rights Reserved Abdomen Ultrasound 09/16/20 07:07 IMPRESSION: 1. Mild hepatomegaly with trace perihepatic fluid. 2. Prior cholecystectomy. Chest CT 09/16/20 13:16 IMPRESSION: Cardiomegaly with small bilateral pleural effusions, right greater than left, with mild associated basilar atelectasis. Scattered mildly enlarged mediastinal nodes, stable and nonspecific. Abdomen/Pelvis CT 09/16/20 13:17 IMPRESSION: 1. Postsurgical changes from prior Whipple. No evidence of intestinal obstruction. Area of indistinct small bowel wall thickening and mild adjacent stranding within the right lower quadrant, possibly enteritis. Recommend correlation with patient symptoms. 2. Evidence of volume overload with small bilateral effusions, small volume ascites and diffuse anasarca. 3. Additional incidental findings as above. Lung Scan-VQ KS 09/16/20 15:45 IMPRESSION: NORMAL PERFUSION LUNG SCAN. Assessment and Plan - Diagnosis (1) Acute respiratory failure with hypoxia Is this a current diagnosis for this admission?: Yes (2) Suspected COVID-19 virus infection Is this a current diagnosis for this admission?: Yes (3) Acute on chronic systolic (congestive) heart failure Is this a current diagnosis for this admission?: Yes (4) Acute on chronic renal failure Qualifiers: Acute renal failure type: unspecified Chronic kidney disease stage: stage 3 (moderate) Chronic kidney disease stage 3 subtype: stage 3b (GFR 30-44) Qualified Code(s): N17.9 - Acute kidney failure, unspecified; N18.32 - Chronic kidney disease, stage 3b Is this a current diagnosis for this admission?: Yes (5) Anemia Qualifiers: Anemia type: other cause Other causes of anemia: other cause, not classified Qualified Code(s): D64.89 - Other specified anemias Is this a current diagnosis for this admission?: Yes (6) Hypertension Qualifiers: Hypertension type: essential hypertension Qualified Code(s): I10 - Essential (primary) hypertension Is this a current diagnosis for this admission?: Yes (7) Hypothyroidism Qualifiers: Hypothyroidism type: acquired Qualified Code(s): E03.9 - Hypothyroidism, unspecified Is this a current diagnosis for this admission?: Yes (8) Systemic lupus erythematosus arthritis Is this a current diagnosis for this admission?: Yes (9) Chronic ITP (idiopathic thrombocytopenia) Is this a current diagnosis for this admission?: Yes (10) Elevated liver function tests Is this a current diagnosis for this admission?: Yes (11) Nonsustained ventricular tachycardia Is this a current diagnosis for this admission?: Yes - Plan Summary Summary: (1) Acute respiratory failure with hypoxia (2) Suspected COVID-19 virus infection (3) Acute on chronic systolic (congestive) heart failure (4) Acute on chronic renal failure (5) Anemia (6) Hypertension (7) Hypothyroidism (8) Systemic lupus erythematosus arthritis (9) Chronic ITP (idiopathic thrombocytopenia) (10) Elevated liver function tests (11) nonsustained V. tach 09/17/2020 Respiratory failure with hypoxia-currently on 2 L nasal cannula maintaining saturation in the high 90s. Could probably tolerate 1 L. Continue to monitor. Suspected COVID-19 viral infection-continue current treatment regimen based on clinical aspects. Acute on chronic systolic heart failure-the patient has an ejection fraction of only 20 to 25%. Significant decrease in left ventricular wall motion. Continue to try to optimize medication regimen and fluid balance. Acute on chronic kidney failure-BUN and creatinine have increased. I am going to have the IV Lasix dosing and recheck labs tomorrow. The patient may in fact need a small amount of IV fluids. Anemia-continue to monitor CBC. Hemoglobin of 8.7 is in fact better than her last admission. No evidence of sheron bleeding. Hypertension-continue to monitor blood pressure and telemetry. Adjust medications accordingly. Hypothyroidism-continue levothyroxine Lupus-continue current dose of Solu-Medrol. Return to baseline prednisone dose at discharge ITP-platelet count is 140. Continue to follow closely. It is slightly down from admission value of 162. Continue Eliquis. Consider hematology consultation. Elevated liver function tests-likely related to exacerbation of heart failure. Continue to monitor. 09/18/2020 Respiratory failure with hypoxia-continues supplemental oxygen requirements. Taper to room air as tolerated. Suspected Covid infection-initial testing was negative. Inflammatory markers were consistent with Covid infection. Will recheck tomorrow. Acute on chronic kidney failure-BUN and creatinine have increased again. I will increase IV fluids as I think she has diminished intravascular volume. Between the low albumin and anemia she is third spacing fluid. I will give her a trial dose of albumin. Hypertension-continue current regimen and monitor blood pressure Hypothyroidism-continue levothyroxine Systemic lupus erythematosus-continue Solu-Medrol while hospitalized. Return to baseline prednisone dosing after discharge ITP-platelet count improved somewhat to 150. Continue to monitor. Elevated transaminases-improving slowly. Continue to monitor. Nonsustained ventricular tachycardia-2 episodes on telemetry noted today. She was asymptomatic. Continue to monitor on telemetry. Continue to monitor electrolytes. Cardiology consult with her motion study analyst tomorrow. - Time Time Spent with patient: 15-24 minutes Medications reviewed and adjusted accordingly: Yes Anticipated Discharge Disposition: Unknown Anticipated Discharge Timeframe: Unknown
[2020-09-18] MEDS: IVERMECTIN 3 MG TABLET PO SCH (19:07)
[2020-09-18] MEDS: ALBUMIN HUMAN 12.5 GM/50 ML RTUINJ IV SCH (21:32)
[2020-09-18] MEDS: ATORVASTATIN CALCIUM 40 MG TABLET PO SCH (21:33)
--- NOTE | 2020-09-18 22:39 | EKG REPORT ---
SEVERITY:- ABNORMAL ECG - SINUS RHYTHM PROBABLE LEFT ATRIAL ABNORMALITY LVH WITH SECONDARY REPOLARIZATION ABNORMALITY : Confirmed by: Des Palacios 18-Sep-2020 22:38:31
[2020-09-19] MEDS: ALBUMIN HUMAN 12.5 GM/50 ML RTUINJ IV SCH (00:47)
[2020-09-19 05:17] LABS: HEMATOCRIT 24.6 % (36.0-47.0); MEAN CORPUSCULAR HEMOGLOBIN 28.6 pg (27.0-33.4); MEAN CORPUSCULAR VOLUME 90 fl (80-97); PLATELET COUNT 145 10^3/uL (150-450); RED BLOOD COUNT 2.75 10^6/uL (3.72-5.28); WHITE BLOOD COUNT 11.1 10^3/uL (4.0-10.5)
[2020-09-19 05:30] LABS: ALBUMIN 3.2 g/dL (3.5-5.0); ALKALINE PHOSPHATASE 722 U/L (38-126); ANION GAP 11 (5-19); ASPARTATE AMINO TRANSFERASE 114 U/L (14-36); BILIRUBIN,DIRECT 1.6 mg/dL (0.0-0.4); BILIRUBIN,TOTAL 2.6 mg/dL (0.2-1.3); BLOOD UREA NITROGEN 112 mg/dL (7-20); C-REACTIVE PROTEIN 25.3 mg/L (<10.0); CALCIUM 8.2 mg/dL (8.4-10.2); CARBON DIOXIDE 25 mmol/L (22-30); CHLORIDE 103 mmol/L (98-107); GLUCOSE 397 mg/dL (75-110); POTASSIUM 4.7 mmol/L (3.6-5.0); TOTAL PROTEIN 5.8 g/dL (6.3-8.2)
[2020-09-19] MEDS: LEVOTHYROXINE SODIUM 0.1 MG TABLET PO SCH (05:46)
[2020-09-19 05:58] LABS: HEMOGLOBIN 7.9 g/dL (12.0-15.5)
[2020-09-19 05:59] LABS: BASOPHILS % (MANUAL) 0 % (0-2); EOSINOPHILS % (MANUAL) 0 % (0-6); LYMPHOCYTES % (MANUAL) 0 % (13-45); MONOCYTES % (MANUAL) 0 % (3-13); SEGMENTED NEUTROPHILS % (MAN) 100 % (42-78); TOTAL CELLS COUNTED 100
[2020-09-19 06:01] LABS: ANISOCYTOSIS 2+; OVALOCYTES 1+; POIKILOCYTOSIS 1+; TOXIC GRANULATION 1+
[2020-09-19 06:02] LABS: PLATELET COMMENT ADEQUATE; TEAR DROP CELLS SLIGHT
[2020-09-19] MEDS ORDERED: FUROSEMIDE INJ/PF 40 MG/4 ML SDV IV PRN (08:51)
[2020-09-19] MEDS ORDERED: NORMAL SALINE 250 ML IV PRN ×2 (08:51)
--- NOTE | 2020-09-19 09:07 | PDOC PROGRESS REPORT ---
Subjective Date:: 09/19/20 Subjective:: Patient is resting comfortably in the chair. She is now on room air. She had a net negative fluid balance yesterday. She feels she is slightly better than yesterday as well. Reason For Visit: ACUTE RESP FAILURE W HXPOXIA,PAWEL,HEART FAILURE, Physical Exam Vital Signs: Temp Pulse Resp BP Pulse Ox 97.7 F 79 18 152/86 H 100 09/19/20 08:11 09/19/20 08:11 09/19/20 08:11 09/19/20 08:11 09/19/20 08:11 Intake & Output 09/18/20 09/19/20 09/20/20 06:59 06:59 06:59 Intake Total 1282 932 Output Total 1920 1000 Balance -638 -68 Weight 79.2 kg 82.7 kg General appearance: PRESENT: cooperative, mild distress, well-developed Head exam: PRESENT: atraumatic, normocephalic Eye exam: PRESENT: conjunctiva pale, EOMI. ABSENT: scleral icterus Ear exam: PRESENT: normal external ear exam. ABSENT: bleeding, drainage Mouth exam: PRESENT: moist, tongue midline Respiratory exam: PRESENT: rales - Bilateral bases, symmetrical. ABSENT: accessory muscle use, rhonchi, tachypnea, wheezes Cardiovascular exam: PRESENT: RRR, +S1, +S2, systolic murmur - 2/6. ABSENT: bradycardia, diastolic murmur GI/Abdominal exam: PRESENT: normal bowel sounds, soft. ABSENT: distended, tenderness Rectal exam: PRESENT: deferred Gentrourinary exam: PRESENT: indwelling catheter Extremities exam: PRESENT: pedal edema Musculoskeletal exam: PRESENT: ambulatory, normal inspection. ABSENT: deformity, dislocation Neurological exam: PRESENT: alert, awake, oriented to person, oriented to place, oriented to time, oriented to situation, CN II-XII grossly intact. ABSENT: altered Psychiatric exam: PRESENT: appropriate affect. ABSENT: agitated, anxious Focused psych exam: ABSENT: delusional, paranoid, restlessness Skin exam: PRESENT: dry, pallor, warm. ABSENT: rash Results Laboratory Results: 09/19/20 04:42 09/19/20 04:42 09/19/20 09/19/20 04:42 04:42 WBC 11.1 H RBC 2.75 L Hgb 7.9 L Hct 24.6 L MCV 90 MCH 28.6 MCHC 32.0 RDW 19.0 H Plt Count 145 L Seg Neutrophils % Not Reportable Sodium 138.8 Potassium 4.7 Chloride 103 Carbon Dioxide 25 Anion Gap 11 BUN 112 H Creatinine 1.98 H Est GFR ( Amer) 31 L Glucose 397 H Calcium 8.2 L Magnesium 2.2 Ferritin 353.00 H Total Bilirubin 2.6 H AST 114 H Alkaline Phosphatase 722 H C-Reactive Protein 25.3 H Total Protein 5.8 L Albumin 3.2 L 09/16/20 09/16/20 09/16/20 03:11 08:43 13:11 Troponin I 0.062 0.064 NT-Pro-B Natriuret Pep [id number] H 09/16/20 09/18/20 09/19/20 18:06 04:28 04:42 Troponin I 0.058 NT-Pro-B Natriuret Pep [id number] H [id number] H Impressions: Chest X-Ray 09/16/20 03:17 IMPRESSION: Cardiomegaly with small bibasilar effusions and mild interstitial prominence copyright 2011 [employer]- All Rights Reserved Abdomen Ultrasound 09/16/20 07:07 IMPRESSION: 1. Mild hepatomegaly with trace perihepatic fluid. 2. Prior cholecystectomy. Chest CT 09/16/20 13:16 IMPRESSION: Cardiomegaly with small bilateral pleural effusions, right greater than left, with mild associated basilar atelectasis. Scattered mildly enlarged mediastinal nodes, stable and nonspecific. Abdomen/Pelvis CT 09/16/20 13:17 IMPRESSION: 1. Postsurgical changes from prior Whipple. No evidence of intestinal obstruction. Area of indistinct small bowel wall thickening and mild adjacent stranding within the right lower quadrant, possibly enteritis. Recommend correlation with patient symptoms. 2. Evidence of volume overload with small bilateral effusions, small volume ascites and diffuse anasarca. 3. Additional incidental findings as above. Lung Scan-VQ [place] 09/16/20 15:45 IMPRESSION: NORMAL PERFUSION LUNG SCAN. Assessment and Plan - Diagnosis (1) Acute respiratory failure with hypoxia Is this a current diagnosis for this admission?: Yes (2) Suspected COVID-19 virus infection Is this a current diagnosis for this admission?: Yes (3) Acute on chronic systolic (congestive) heart failure Is this a current diagnosis for this admission?: Yes (4) Acute on chronic renal failure Qualifiers: Acute renal failure type: unspecified Chronic kidney disease stage: stage 3 (moderate) Chronic kidney disease stage 3 subtype: stage 3b (GFR 30-44) Qualified Code(s): N17.9 - Acute kidney failure, unspecified; N18.32 - Chronic kidney disease, stage 3b Is this a current diagnosis for this admission?: Yes (5) Anemia Qualifiers: Anemia type: other cause Other causes of anemia: other cause, not classified Qualified Code(s): D64.89 - Other specified anemias Is this a current diagnosis for this admission?: Yes (6) Hypertension Qualifiers: Hypertension type: essential hypertension Qualified Code(s): I10 - Essential (primary) hypertension Is this a current diagnosis for this admission?: Yes (7) Hypothyroidism Qualifiers: Hypothyroidism type: acquired Qualified Code(s): E03.9 - Hypothyroidism, unspecified Is this a current diagnosis for this admission?: Yes (8) Systemic lupus erythematosus arthritis Is this a current diagnosis for this admission?: Yes (9) Chronic ITP (idiopathic thrombocytopenia) Is this a current diagnosis for this admission?: Yes (10) Elevated liver function tests Is this a current diagnosis for this admission?: Yes (11) Nonsustained ventricular tachycardia Is this a current diagnosis for this admission?: Yes (12) Pulmonary hypertension Is this a current diagnosis for this admission?: Yes - Plan Summary Summary: (1) Acute respiratory failure with hypoxia (2) Suspected COVID-19 virus infection (3) Acute on chronic systolic (congestive) heart failure (4) Acute on chronic renal failure (5) Anemia (6) Hypertension (7) Hypothyroidism (8) Systemic lupus erythematosus arthritis (9) Chronic ITP (idiopathic thrombocytopenia) (10) Elevated liver function tests (11) Nonsustained V. tach (12) Pulmonary hypertension 09/17/2020 Respiratory failure with hypoxia-currently on 2 L nasal cannula maintaining saturation in the high 90s. Could probably tolerate 1 L. Continue to monitor. Suspected COVID-19 viral infection-continue current treatment regimen based on clinical aspects. Acute on chronic systolic heart failure-the patient has an ejection fraction of only 20 to 25%. Significant decrease in left ventricular wall motion. Continue to try to optimize medication regimen and fluid balance. Acute on chronic kidney failure-BUN and creatinine have increased. I am going to halve the IV Lasix dosing and recheck labs tomorrow. The patient may in fact need a small amount of IV fluids. Anemia-continue to monitor CBC. Hemoglobin of 8.7 is in fact better than her last admission. No evidence of sheron bleeding. Hypertension-continue to monitor blood pressure and telemetry. Adjust medications accordingly. Hypothyroidism-continue levothyroxine Lupus-continue current dose of Solu-Medrol. Return to baseline prednisone dose at discharge ITP-platelet count is 140. Continue to follow closely. It is slightly down from admission value of 162. Continue Eliquis. Consider hematology consultation. Elevated liver function tests-likely related to exacerbation of heart failure. Continue to monitor. 09/18/2020 Respiratory failure with hypoxia-continues supplemental oxygen requirements. Taper to room air as tolerated. Suspected Covid infection-initial testing was negative. Inflammatory markers were consistent with Covid infection. Will recheck tomorrow. Acute on chronic kidney failure-BUN and creatinine have increased again. I will increase IV fluids as I think she has diminished intravascular volume. Between the low albumin and anemia she is third spacing fluid. I will give her a trial dose of albumin. Hypertension-continue current regimen and monitor blood pressure Hypothyroidism-continue levothyroxine Systemic lupus erythematosus-continue Solu-Medrol while hospitalized. Return to baseline prednisone dosing after discharge ITP-platelet count improved somewhat to 150. Continue to monitor. Elevated transaminases-improving slowly. Continue to monitor. Nonsustained ventricular tachycardia-2 episodes on telemetry noted today. She was asymptomatic. Continue to monitor on telemetry. Continue to monitor electrolytes. Cardiology consult with her label cutter tomorrow. 09/19/2020 Respiratory failure with hypoxia-on room air at this time. Continue to maximize therapy Acute on chronic kidney failure-creatinine is slightly better. With transfusion she may get better perfusion of the kidneys. Anemia-we will transfuse 2 units packed red blood cells since her hemoglobin is not improving on its own. Systemic lupus erythematosus-continue Solu-Medrol ITP-monitor platelet count Elevated transaminases-likely related to heart failure The patient had short runs of ventricular tachycardia yesterday. She was seen by cardiology today. Because of her depressed ejection fraction with kidney failure and abnormal telemetry cardiology feels that it is best to transfer her to [facility]. She is scheduled for a cardiac catheterization there [place]. They will have greater capability of intervention in the event of complications. - Time Time Spent with patient: 15-24 minutes Medications reviewed and adjusted accordingly: Yes Anticipated Discharge Disposition: Tertiary Anticipated Discharge Timeframe: Unknown
--- NOTE | 2020-09-19 09:36 | PDOC CONSULTATION ---
Consultation Consult Date: 09/19/20 Attending physician:: VÍCTOR TORRES Provider Consulted: AMILCAR WARREN Consult reason:: CHF History of Present Illness Admission Date/PCP: 09/16/20 18:24 DANISH SMITH MD History of Present Illness: This patient had been evaluated previously by my partner, Dr. Wren. Below is an excerpt of the consult that he provided in August 2020 when the patient was readmitted: DANDRE SANTOS is a 64 year old female With the following active problems 1. Lupus erythematosus 2. Dyslipidemia 3. Systemic hypertension 4. Dilated cardiomyopathy 5. Pancytopenia 62-year-old lady who was initially admitted to [facility] with hypertensive emergency around June 2020. At that time her blood pressure was optimized. She did not require respiratory support. Prior to discharge an echocardiogram was performed which showed severe LV dysfunction with ejection fraction estimated at 20 to 25%. Based on this we decided to proceed with ischemic evaluation risk factors for coronary artery disease including hypertension, nicotine dependence in remission as well as lupus erythematosus. Preprocedure labs demonstrated pancytopenia and thus cardiac visitation had to be aborted. Subsequently patient was admitted to hospital and was followed by hematology. She responded to therapy. He has not yet arranged cardiac catheterization until the anemia has been corrected as she may require revascularization based on cardiac catheterization findings. However patient presented to hospital with palpitations and was found to be in atrial fibrillation rapid ventricular response. Patient is a former smoker. The following is my current note. The patient was readmitted on 09/16/2020 with complaints of shortness of breath. She was found to be in acute on chronic heart failure. She had been treated appropriately and had been diuresed however she continues to be very symptomatic. Telemetry demonstrates intermittent episodes of high degree AV block to include second-degree type II with a ventricular escape rhythm at about 40 bpm and complete heart block as well as sinus tachycardia and nonsustained VT. Physical exam on 09/19/2020: GENERAL: Very pale, visibly short of breath and speaking in short sentences. Oriented x3 with normal mood. Delete well groomed and well developed. HEENT: Normocephalic, atraumatic. Pupils equal. Sclerae anicteric. Oropharynx moist. NECK: Difficult to evaluate for JVD given his body habitus. No carotid bruits. LUNGS: Diffuse crackles in all garcia bilaterally. Normal respiratory effort without the use of accessory muscles or intercostal retractions. CARDIOVASCULAR: Regular rate and rhythm, normal S1 and S2 without murmurs, rubs, or gallops. PMI not displaced. ABDOMEN: No masses or tenderness to palpation. No bruit. No splenomegaly or hepatomegaly. No abdominal aorta bruit noted. EXTREMITIES: 3+ pitting edema bilaterally, no cyanosis, no clubbing. +2 pulses femoral and pedal pulses bilaterally. SKIN: No lesions or rashes. MUSCULOSKELETAL: No chest tenderness to palpation. NEUROLOGIC: Nonfocal. No gross sensory or motor deficits bilateral upper or lower extremities. Past Medical History Cardiac Medical History: Reports: Atrial Fibrillation, Congestive Heart Failure, Hypertension Denies: Coronary Artery Disease, DVT, Myocardial Infarction, Hyperlipidema, Pulmonary Embolism Pulmonary Medical History: Denies: Asthma, Chronic Obstructive Pulmonary Disease (COPD) Neurological Medical History: Denies: Ischemic CVA, Seizures Endocrine Medical History: Reports: Hypothyroidism, Obesity, Other - SLE Denies: Diabetes Mellitus Type 1, Diabetes Mellitus Type 2, Hyperthyroidism Renal/ Medical History: Reports: Chronic Kidney Disease Malignancy Medical History: Reports: Skin Cancer GI Medical History: Reports: Gastroesophageal Reflux Disease Denies: Cirrhosis, Hepatitis, Hiatal Hernia Musculoskeltal Medical History: Reports: Arthritis Denies: Fibromyalgia Skin Medical History: Denies: Eczema, Psoriasis Psychiatric Medical History: Denies: Depression Hematology: Reports: Anemia - Chronic Denies: Sickle Cell Disease, Bleeding Tendencies Past Surgical History Past Surgical History: Reports: Cholecystectomy, Hysterectomy, Other - skin cancer removal Denies: Amputation, Mastectomy, Pacemaker Social History Lives with: Alone Smoking Status: Former Smoker Electronic Cigarette use?: No Frequency of Alcohol Use: None Hx Recreational Drug Use: No Drugs: None Hx Prescription Drug Abuse: No Family History Family History: Reviewed & Not Pertinent, Hypertension Parental Family History Reviewed: Yes Children Family History Reviewed: Yes Sibling(s) Family History Reviewed.: Yes Medication/Allergy Home Medications: Levothyroxine Sodium [Synthroid] 200 mcg PO Q6AM 06/14/20 Multivitamin [Tab-A-Carter (Multiple Vitamin) Tablet] 1 tab PO DAILY 06/23/20 Atorvastatin Calcium [Lipitor 40 mg Tablet] 40 mg PO QHS 30 Days #30 tablet 06/24/20 Prednisone [Deltasone 20 mg Tablet] 20 mg PO BID 08/23/20 Apixaban [Eliquis 5 mg Tablet] 5 mg PO BID #60 tablet 08/25/20 Metoprolol Succinate 100 mg PO DAILY #30 tab.er.24h 08/25/20 Calcium Carbonate [Calcium] 600 mg PO DAILY 09/16/20 Furosemide [Lasix 40 mg Tablet] 40 mg PO BID 09/16/20 Pantoprazole Sodium [Protonix [address] Tablet] 20 mg PO DAILY 09/16/20 Sacubitril/Valsartan [Entresto 24 mg/26 mg Tablet] 1 tab PO BID 09/16/20 Allergies/Adverse Reactions: Iodinated Contrast Media Allergy (Verified 08/23/20 08:46) Generalized rash Physical Exam Vital Signs: Temp Pulse Resp BP Pulse Ox 97.7 F 79 18 152/86 H 100 09/19/20 08:11 09/19/20 08:11 09/19/20 08:11 09/19/20 08:11 09/19/20 08:11 Intake & Output 09/18/20 09/19/20 09/20/20 06:59 06:59 06:59 Intake Total 1282 932 Output Total 1920 1000 Balance -638 -68 Weight 79.2 kg 82.7 kg Results Laboratory Results: 09/19/20 04:42 09/19/20 04:42 09/19/20 09/19/20 04:42 04:42 WBC 11.1 H RBC 2.75 L Hgb 7.9 L Hct 24.6 L MCV 90 MCH 28.6 MCHC 32.0 RDW 19.0 H Plt Count 145 L Seg Neutrophils % Not Reportable Sodium 138.8 Potassium 4.7 Chloride 103 Carbon Dioxide 25 Anion Gap 11 BUN 112 H Creatinine 1.98 H Est GFR ( Amer) 31 L Glucose 397 H Calcium 8.2 L Magnesium 2.2 Ferritin 353.00 H Total Bilirubin 2.6 H AST 114 H Alkaline Phosphatase 722 H C-Reactive Protein 25.3 H Total Protein 5.8 L Albumin 3.2 L 09/16/20 09/16/20 09/16/20 03:11 08:43 13:11 Troponin I 0.062 0.064 NT-Pro-B Natriuret Pep [id number] H 09/16/20 09/18/20 09/19/20 18:06 04:28 04:42 Troponin I 0.058 NT-Pro-B Natriuret Pep [id number] H 980002 H Impressions: Chest X-Ray 09/16/20 03:17 IMPRESSION: Cardiomegaly with small bibasilar effusions and mild interstitial prominence copyright 2011 [employer]- All Rights Reserved Abdomen Ultrasound 09/16/20 07:07 IMPRESSION: 1. Mild hepatomegaly with trace perihepatic fluid. 2. Prior cholecystectomy. Chest CT 09/16/20 13:16 IMPRESSION: Cardiomegaly with small bilateral pleural effusions, right greater than left, with mild associated basilar atelectasis. Scattered mildly enlarged mediastinal nodes, stable and nonspecific. Abdomen/Pelvis CT 09/16/20 13:17 IMPRESSION: 1. Postsurgical changes from prior Whipple. No evidence of intestinal obstruction. Area of indistinct small bowel wall thickening and mild adjacent stranding within the right lower quadrant, possibly enteritis. Recommend correlation with patient symptoms. 2. Evidence of volume overload with small bilateral effusions, small volume ascites and diffuse anasarca. 3. Additional incidental findings as above. Lung Scan-VQ NM 09/16/20 15:45 IMPRESSION: NORMAL PERFUSION LUNG SCAN. 09/19/20 04:42 09/19/20 04:42 MCV 90 fl (80-97) 09/19/20 04:42 MCH 28.6 pg (27.0-33.4) 09/19/20 04:42 MCHC 32.0 g/dL (32.0-36.0) 09/19/20 04:42 RDW 19.0 % (11.5-14.0) H 09/19/20 04:42 Seg Neutrophils % Not Reportable 09/19/20 04:42 Chloride 103 mmol/L (98-107) 09/19/20 04:42 Carbon Dioxide 25 mmol/L (22-30) 09/19/20 04:42 Anion Gap 11 (5-19) 09/19/20 04:42 Est GFR ( Amer) 31 (>60) L 09/19/20 04:42 Glucose 397 mg/dL (75-110) H 09/19/20 04:42 Lactic Acid 2.1 mmol/L (0.7-2.1) 09/16/20 08:43 Calcium 8.2 mg/dL (8.4-10.2) L 09/19/20 04:42 Magnesium 2.2 mg/dL (1.6-2.3) 09/19/20 04:42 Ferritin 353.00 ng/mL (11.1-264.0) H 09/19/20 04:42 Total Bilirubin 2.6 mg/dL (0.2-1.3) H 09/19/20 04:42 AST 114 U/L (14-36) H 09/19/20 04:42 Alkaline Phosphatase 722 U/L (38-126) H 09/19/20 04:42 C-Reactive Protein 25.3 mg/L (<10.0) H 09/19/20 04:42 Total Protein 5.8 g/dL (6.3-8.2) L 09/19/20 04:42 Albumin 3.2 g/dL (3.5-5.0) L 09/19/20 04:42 Lipase 276.8 U/L (23-300) 09/16/20 08:43 Urine Color JOSE 09/16/20 09:17 Urine Appearance SLIGHTLY-CLOUDY 09/16/20 09:17 Urine pH 5.0 (5.0-9.0) 09/16/20 09:17 Ur Specific [place] 1.016 09/16/20 09:17 Urine Protein 100 mg/dL (NEGATIVE) H 09/16/20 09:17 Urine Glucose (UA) NEGATIVE mg/dL (NEGATIVE) 09/16/20 09:17 Urine Ketones NEGATIVE mg/dL (NEGATIVE) 09/16/20 09:17 Urine Blood NEGATIVE (NEGATIVE) 09/16/20 09:17 Urine Nitrite NEGATIVE (NEGATIVE) 09/16/20 09:17 Ur Leukocyte Esterase NEGATIVE (NEGATIVE) 09/16/20 09:17 Urine WBC (Auto) 4 /HPF 09/16/20 09:17 Urine RBC (Auto) 5 /HPF 09/16/20 09:17 Stool Occult Blood POSITIVE (NEGATIVE) 09/18/20 07:00 09/16/20 09/16/20 09/16/20 03:11 08:43 13:11 Troponin I 0.062 0.064 NT-Pro-B Natriuret Pep [id number] H 09/16/20 09/18/20 09/19/20 18:06 04:28 04:42 Troponin I 0.058 NT-Pro-B Natriuret Pep [id number] H [id number] H Current Medication List Generic Name Dose Route Start Last Admin Trade Name Freq PRN Reason Stop Dose Admin Acetaminophen 650 mg 09/16/20 18:20 Acetaminophen 325 Mg Tablet PO 10/16/20 18:19 Q4HP PRN FOR PAIN OR TEMP Al Hydrox/Mg Hydrox/Simethicone 30 ml 09/16/20 18:20 Mag Hydrox/Al Hydrox/Simeth Susp 30 Ml Udcup PO 10/16/20 18:19 Q4HP PRN HEARTBURN Albuterol 2.5 mg 09/16/20 18:25 09/18/20 14:55 Albuterol Sulfate 0.083% Neb 2.5 Mg/3 Ml Ampul NEB 10/16/20 18:24 2.5 mg RTQ6HP PRN Administration SHORTNESS OF BREATH Apixaban 5 mg 09/17/20 10:00 09/18/20 19:06 Apixaban 5 Mg Tablet PO 10/17/20 09:59 5 mg BID SHIVANI Administration Ascorbic Acid 500 mg 09/17/20 10:00 09/18/20 19:06 Ascorbic Acid 500 Mg Tablet PO 10/17/20 09:59 500 mg BID SHIVANI Administration Aspirin 81 mg 09/17/20 10:00 09/18/20 12:33 Aspirin 81 Mg Tablet, Ent Coated PO 10/17/20 09:59 81 mg DAILY SHIVANI Administration Atorvastatin Calcium 40 mg 09/16/20 22:00 09/18/20 21:33 Atorvastatin Calcium 40 Mg Tablet PO 10/16/20 21:59 40 mg QHS SHIVANI Administration Calcium Carbonate 600 mg 09/17/20 10:00 09/18/20 12:33 Calcium Carbonate 600 Mg Tablet PO 10/17/20 09:59 600 mg DAILY SHIVANI Administration Cholecalciferol 2,000 unit 09/17/20 10:00 09/18/20 12:33 Cholecalciferol (D3) 1,000 Unit (25 Mcg) Tablet PO 10/17/20 09:59 2,000 unit DAILY SHIVANI Administration Furosemide 20 mg 09/18/20 22:00 09/18/20 21:32 Furosemide Inj/Pf 20 Mg/2 Ml Sdv IV 10/18/20 21:59 20 mg Q12 SHIVANI Administration Furosemide 40 mg 09/19/20 08:51 Furosemide Inj/Pf 40 Mg/4 Ml Sdv IV 09/20/20 08:50 .AFTER FIRST UNIT PRN THIS MED IS NOT "PRN" Sodium Chloride 250 mls @ 30 mls/hr 09/19/20 08:51 Nacl 0.9% 250 Ml Iv Soln IV 09/20/20 08:50 .DURING TRANSFUSION PRN THIS MED IS NOT "PRN" Sodium Chloride 250 mls @ 0 mls/hr 09/19/20 08:51 Nacl 0.9% 250 Ml Iv Soln IV 09/20/20 08:50 CONTINUOUS PRN AFTER EACH UNIT As Directed Levothyroxine Sodium 0.2 mg 09/17/20 06:00 09/19/20 05:46 Levothyroxine Sodium 0.1 Mg Tablet PO 10/17/20 05:59 0.2 mg Q6AM SHIVANI Administration Magnesium Hydroxide 30 ml 09/16/20 18:20 Magnesium Hydroxide Susp 30 Ml Udcup PO 10/16/20 18:19 HSP PRN FOR CONSTIPATION Methylprednisolone Sodium Succinate 40 mg 09/16/20 22:00 09/18/20 21:32 Methylprednisolone Inj 40 Mg/1 Ml Sdv IV 10/16/20 21:59 40 mg Q12 SHIVANI Administration Metoprolol Succinate 100 mg 09/17/20 10:00 09/18/20 12:33 Metoprolol Succinate 50 Mg Tab.Sr.24h PO 10/17/20 09:59 100 mg DAILY SHIVANI Administration Multivitamins 1 tab 09/17/20 10:00 09/18/20 12:33 Multivitamin Tablet PO 10/17/20 09:59 1 tab DAILY SHIVANI Administration Pantoprazole Sodium 20 mg 09/17/20 10:00 09/18/20 12:34 Pantoprazole Sodium 20 Mg Tablet. PO 10/17/20 09:59 20 mg DAILY SHIVANI Administration Sacubitril/Valsartan 1 tab 09/17/20 10:00 09/18/20 19:08 Sacubitril/Valsartan 24 Mg/26 Mg Tablet PO 10/17/20 09:59 1 tab BID SHIVANI Administration Sodium Chloride 2.5 ml 09/16/20 22:00 09/19/20 05:50 Normal Saline Flush 2.5 Ml Disp.Syrin IV 10/16/20 21:59 2.5 ml Q8 SHIVANI Administration Spironolactone 50 mg 09/17/20 10:00 09/18/20 12:37 Spironolactone 25 Mg Tablet PO 10/17/20 09:59 50 mg DAILY SHIVANI Administration Zinc Sulfate 220 mg 09/17/20 10:00 09/18/20 12:35 Zinc Sulfate 220 Mg Capsule PO 10/17/20 09:59 220 mg DAILY SHIVANI Administration Discontinued Medications Generic Name Dose Route Start Last Admin Trade Name Melba PRN Reason Stop Dose Admin Docusate Sodium 100 mg 09/17/20 10:00 09/18/20 12:35 Docusate Sodium 100 Mg Capsule PO 10/17/20 09:59 Not Given DAILY SHIVANI Furosemide 80 mg 09/16/20 07:10 09/16/20 07:48 Furosemide Inj/Pf 20 Mg/2 Ml Sdv IV 09/16/20 07:11 80 mg NOW ONE Administration Furosemide 40 mg 09/16/20 22:00 09/17/20 14:25 Furosemide Inj/Pf 40 Mg/4 Ml Sdv IV 10/16/20 21:59 40 mg Q8 SHIVANI Administration Furosemide 20 mg 09/17/20 22:00 09/18/20 06:06 Furosemide Inj/Pf 20 Mg/2 Ml Sdv IV 10/17/20 21:59 20 mg Q8 SHIVANI Administration Albumin Human 12.5 gm in 50 mls @ 50 mls/hr 09/18/20 20:00 09/19/20 00:47 Albuminar-25 Rtu Inj 12.5 Gm/50 Ml Premix IV 09/18/20 21:59 50 ml/hr Q1H SHIVANI 50 mls/hr Administration Ivermectin 12 mg 09/16/20 19:30 09/18/20 19:07 Ivermectin 3 Mg Tablet PO 09/18/20 19:31 12 mg Q48H SHIVANI Administration Assessment & Plan - Diagnosis (1) Acute on chronic systolic (congestive) heart failure Is this a current diagnosis for this admission?: Yes Plan: The patient continues to be fluid overloaded with her case complicated by anemia and acute on chronic renal failure as well as ventricular dysrhythmias as descr ibed below along with high degree AV block. She had been evaluated in the past by my partner, Dr. Wren who had scheduled the patient for left heart catheterization. The patient today is visibly short of breath and still fluid overloaded. I believe she should be transferred to [facility] for further evaluation and treatment particularly her ventricular dysrhythmias and high degree AV block. I discussed the case with Dr. Wren who kindly agreed to try to arrange for transfer. In the meantime we will continue with cardiac telemetry and current medical management. (2) [place]itz (type) II atrioventricular block Plan: Unfortunately the patient has now developed sinus tachycardia along with brief episodes of nonsustained VT and intermittent episodes of high degree AV block with ventricular escape rhythms at about 40 bpm which is concerning for the development of sick sinus syndrome. At this point she has exceeded the capabilities of this hospital and Dr. Wren is working on transferring her to [facility]. In the meantime we will decrease her Toprol to 50 mg once a day with continuous cardiac telemetry. (3) Nonsustained ventricular tachycardia Is this a current diagnosis for this admission?: Yes Plan: Multifactorial in etiology and probably mainly driven by ischemic heart disease. We are working on transfer her to [facility] for further assessment with left heart catheterization as planned by Dr. Wren. (4) Acute on chronic renal failure Qualifiers: Acute renal failure type: unspecified Chronic kidney disease stage: stage 3 (moderate) Chronic kidney disease stage 3 subtype: stage 3b (GFR 30-44) Qualified Code(s): N17.9 - Acute kidney failure, unspecified; N18.32 - Chronic kidney disease, stage 3b Is this a current diagnosis for this admission?: Yes Plan: Further management per hospitalist and nephrology teams.
[2020-09-19] MEDS: SPIRONOLACTONE 25 MG TABLET PO SCH (11:10)
[2020-09-19] MEDS: MULTIVITAMIN TABLET PO SCH (11:11)
[2020-09-19] MEDS: CALCIUM CARBONATE 600 MG TABLET PO SCH (11:11)
[2020-09-19] MEDS: ASPIRIN 81 MG TABLET, ENT COATED PO SCH (11:11)
[2020-09-19] MEDS: APIXABAN 5 MG TABLET PO SCH ×2 (11:12→18:54)
[2020-09-19] MEDS: METHYLPREDNISOLONE INJ 40 MG/1 ML SDV IV SCH ×2 (11:13→23:11)
[2020-09-19] MEDS: ASCORBIC ACID 500 MG TABLET PO SCH ×2 (11:13→18:54)
[2020-09-19] MEDS: FUROSEMIDE INJ/PF 20 MG/2 ML SDV IV SCH ×2 (11:13→23:10)
[2020-09-19] MEDS: PANTOPRAZOLE SODIUM 20 MG TABLET.DR PO SCH (11:14)
[2020-09-19] MEDS: METOPROLOL SUCCINATE 50 MG TAB.SR.24H PO SCH (11:14)
[2020-09-19] MEDS: ZINC SULFATE 220 MG CAPSULE PO SCH (11:14)
[2020-09-19] MEDS: SACUBITRIL/VALSARTAN 24 MG/26 MG TABLET PO SCH ×2 (11:14→18:54)
[2020-09-19] MEDS: CHOLECALCIFEROL (D3) 1,000 UNIT (25 MCG) TABLET PO SCH (11:15)
[2020-09-19] MEDS: ATORVASTATIN CALCIUM 40 MG TABLET PO SCH (23:11)
[2020-09-20] MEDS: LEVOTHYROXINE SODIUM 0.1 MG TABLET PO SCH (06:02)
[2020-09-20] MEDS: SACUBITRIL/VALSARTAN 24 MG/26 MG TABLET PO SCH ×2 (09:36→18:04)
[2020-09-20] MEDS: SPIRONOLACTONE 25 MG TABLET PO SCH (09:36)
[2020-09-20] MEDS: ASCORBIC ACID 500 MG TABLET PO SCH ×2 (09:36→18:04)
[2020-09-20] MEDS: ASPIRIN 81 MG TABLET, ENT COATED PO SCH (09:36)
[2020-09-20] MEDS: PANTOPRAZOLE SODIUM 20 MG TABLET.DR PO SCH (09:36)
[2020-09-20] MEDS: APIXABAN 5 MG TABLET PO SCH ×2 (09:36→18:04)
[2020-09-20] MEDS: METHYLPREDNISOLONE INJ 40 MG/1 ML SDV IV SCH (09:36)
[2020-09-20] MEDS: ZINC SULFATE 220 MG CAPSULE PO SCH (09:36)
[2020-09-20] MEDS: MULTIVITAMIN TABLET PO SCH (09:36)
[2020-09-20] MEDS: FUROSEMIDE INJ/PF 20 MG/2 ML SDV IV SCH ×2 (09:37→18:03)
[2020-09-20] MEDS: CALCIUM CARBONATE 600 MG TABLET PO SCH (09:40)
[2020-09-20] MEDS: CHOLECALCIFEROL (D3) 1,000 UNIT (25 MCG) TABLET PO SCH (09:40)
[2020-09-20] MEDS: METOPROLOL SUCCINATE 50 MG TAB.SR.24H PO SCH (09:40)
[2020-09-20 09:54] LABS: MEAN CORPUSCULAR HEMOGLOBIN 27.1 pg (27.0-33.4); MEAN CORPUSCULAR HGB CONC 31.9 g/dL (32.0-36.0); PLATELET COUNT 148 10^3/uL (150-450); RED BLOOD COUNT 4.11 10^6/uL (3.72-5.28); RED CELL DISTRIBUTION WIDTH 22.4 % (11.5-14.0); WHITE BLOOD COUNT 11.6 10^3/uL (4.0-10.5)
[2020-09-20 09:55] LABS: HEMOGLOBIN 11.1 g/dL (12.0-15.5)
[2020-09-20 09:56] LABS: MEAN CORPUSCULAR VOLUME 85 fl (80-97)
[2020-09-20 10:05] LABS: ALBUMIN 3.3 g/dL (3.5-5.0); ALKALINE PHOSPHATASE 805 U/L (38-126); ANION GAP 10 (5-19); ASPARTATE AMINO TRANSFERASE 129 U/L (14-36); BILIRUBIN,DIRECT 1.9 mg/dL (0.0-0.4); BILIRUBIN,TOTAL 2.9 mg/dL (0.2-1.3); BLOOD UREA NITROGEN 118 mg/dL (7-20); CALCIUM 8.5 mg/dL (8.4-10.2); CARBON DIOXIDE 24 mmol/L (22-30); CHLORIDE 101 mmol/L (98-107); POTASSIUM 5.2 mmol/L (3.6-5.0); TOTAL PROTEIN 5.8 g/dL (6.3-8.2)
[2020-09-20 10:16] LABS: GLUCOSE 425 mg/dL (75-110)
[2020-09-20] MEDS ORDERED: GLUCAGON,HUMAN RECOMB 1 MG INJ IM PRN (10:29)
[2020-09-20] MEDS ORDERED: DEXTROSE 40% GEL 15 GM TUBE PO PRN ×2 (10:29)
[2020-09-20] MEDS ORDERED: DEXTROSE 50%-WATER 25 GM/50 ML DISP.SYRIN IV PRN ×2 (10:29)
--- NOTE | 2020-09-20 11:51 | PDOC PROGRESS REPORT ---
Subjective Date:: 09/20/20 Subjective:: Patient seems to be doing better with gradual improvement. Pt is denying any chest arm or neck discomfort. Patient denying any PND, orthopnea. Patient denied any sustained palpitations, dizziness, syncope, near syncope. Patient denying any fever chills. Patient denying any other significant discomfort. Telemetry strips reviewed showed short run of atrial fibrillation. Review of systems: Rest review of systems negative. Medications: Medications have been reviewed. Reason For Visit: ACUTE RESP FAILURE W HXPOXIA,PAWEL,HEART FAILURE, Physical Exam Vital Signs: Temp Pulse Resp BP Pulse Ox 98.1 F 87 14 153/84 H 94 09/20/20 07:48 09/20/20 08:25 09/20/20 08:25 09/20/20 07:48 09/20/20 08:25 Intake & Output 09/19/20 09/20/20 09/21/20 06:59 06:59 06:59 Intake Total 932 1446 Output Total 1000 1375 Balance -68 71 Weight 82.7 kg 83.2 kg Exam: GENERAL: well-nourished and in no acute distress. Alert and oriented x3 HEAD: Atraumatic, normocephalic. EYES: [place], sclera anicteric, conjunctiva are normal. ENT: Moist mucous membranes. No oral ulcerations or bleeding gums noted. No obvious ear, nose or throat abnormalities noted. NECK: supple without lymphadenopathy. Trachea is central. No cervical or axillary lymphadenopathy noted. Carotids are 2+, JVD elevated at 10 to 12 cm. LUNGS: Bibasilar fine crackles with few wheezes rales or rhonchi noted. No significant dullness noted on percussion. CHEST: Palpation of the chest wall shows no significant chest wall tenderness. HEART: [place] [facility], No PSH, 1/6 MARK aortic area, 1/6 paredes systolic murmur mitral area, no rubs, S3 gallops. ABDOMEN: Soft, no significant tenderness appreciated, normoactive bowel sounds. No guarding, no rebound. No rigidity noted . No masses appreciated. EXTREMITIES: Pedal pulses are 1-2+, no calf tenderness noted. No clubbing or cyanosis. 1+ pedal edema noted NEUROLOGICAL: Focused neurological exam showed no significant neurologic deficit. Normal speech, no focal weakness appreciated. PSYCH: Normal mood, normal affect. Judgment and insight within normal limits. SKIN: No significant ecchymosis, skin is noted to be warm. MUSCULOSKELETAL EXAM: No significant acute joint swelling noted. Results Laboratory Results: 09/20/20 09:20 09/20/20 09:20 09/19/20 09/20/20 09/20/20 09:26 09:20 09:20 WBC 11.6 H RBC 4.11 Hgb 11.1 L D Hct 35.0 L MCV 85 D MCH 27.1 MCHC 31.9 L RDW 22.4 H Plt Count 148 L Sodium 134.7 L Potassium 5.2 H Chloride 101 Carbon Dioxide 24 Anion Gap 10 BUN 118 H Creatinine 1.63 H Est GFR ( Amer) 39 L Glucose 425 H* Calcium 8.5 Total Bilirubin 2.9 H AST 129 H Alkaline Phosphatase 805 H Total Protein 5.8 L Albumin 3.3 L Blood Type O POSITIVE Antibody Screen NEGATIVE 09/16/20 09/16/20 09/16/20 03:11 08:43 13:11 Troponin I 0.062 0.064 NT-Pro-B Natriuret Pep [id number] H 09/16/20 09/18/20 09/19/20 18:06 04:28 04:42 Troponin I 0.058 NT-Pro-B Natriuret Pep [id number] H [id number] H 09/20/20 09:20 Troponin I NT-Pro-B Natriuret Pep [id number] H Impressions: Chest X-Ray 09/16/20 03:17 IMPRESSION: Cardiomegaly with small bibasilar effusions and mild interstitial prominence copyright 2011 [employer]- All Rights Reserved Abdomen Ultrasound 09/16/20 07:07 IMPRESSION: 1. Mild hepatomegaly with trace perihepatic fluid. 2. Prior cholecystectomy. Chest CT 09/16/20 13:16 IMPRESSION: Cardiomegaly with small bilateral pleural effusions, right greater than left, with mild associated basilar atelectasis. Scattered mildly enlarged mediastinal nodes, stable and nonspecific. Abdomen/Pelvis CT 09/16/20 13:17 IMPRESSION: 1. Postsurgical changes from prior Whipple. No evidence of intestinal obstruction. Area of indistinct small bowel wall thickening and mild adjacent stranding within the right lower quadrant, possibly enteritis. Recommend correlation with patient symptoms. 2. Evidence of volume overload with small bilateral effusions, small volume ascites and diffuse anasarca. 3. Additional incidental findings as above. Lung Scan-VQ NM 09/16/20 15:45 IMPRESSION: NORMAL PERFUSION LUNG SCAN. Assessment & Plan - Diagnosis (1) Acute on chronic systolic (congestive) heart failure Is this a current diagnosis for this admission?: Yes (2) Atrial fibrillation Qualifiers: Atrial fibrillation type: paroxysmal Qualified Code(s): I48.0 - Paroxysmal atrial fibrillation Is this a current diagnosis for this admission?: Yes (3) Nonsustained ventricular tachycardia Is this a current diagnosis for this admission?: Yes (4) Pulmonary hypertension Is this a current diagnosis for this admission?: Yes (5) Anemia Qualifiers: Anemia type: other cause Other causes of anemia: other cause, not classified Qualified Code(s): D64.89 - Other specified anemias Is this a current diagnosis for this admission?: Yes (6) Chronic kidney disease (CKD) stage G3a/A1, moderately decreased glomerular filtration rate (GFR) between 45-59 mL/min/1.73 square meter and albuminuria creatinine ratio less than 30 mg/g Is this a current diagnosis for this admission?: Yes (7) Dilated cardiomyopathy Is this a current diagnosis for this admission?: Yes - Notes Notes: ACUTE ON CHRONIC CHF: Currently stage IV, secondary to severe systolic and diastolic dysfunction. Aggravated by hypertension. Aggravated by atrial fibrillation. At this point recommend increasing diuretic therapy, consider adding spironolactone. Optimize Entresto dose. May consider hydralazine nitrate combination. Continue high-dose beta-zhen therapy. Recommend low- dose amiodarone therapy as feel that atrial fibrillation could be precipitating aggravating CHF. NONSUSTAINED VENTRICULAR TACHYCARDIA: Did not see a recent episode. Continue beta-zhen therapy. Recommend application for LifeVest to be placed. If patient LVEF does not improve beyond 35%, would recommend internal defibrillator placement. Agree with ischemia work-up as has been arranged. PULMONARY HYPERTENSION: Patient will be a good candidate for sleep apnea evaluation as an outpatient due to atrial fibrillation and cardiomyopathy. CHRONIC KIDNEY DISEASE: Continue current management plans. ANEMIA: Recommend keeping hemoglobin above 8 g%. Overall prognosis is guarded. We will continue to follow. - Time Time with patient: Greater than 35 minutes Medications reviewed and adjusted accordingly: Yes
[2020-09-20] MEDS: INSULIN LISPRO 100 UNIT/ML 3 ML VIAL SUBCUT SCH ×3 (12:49→22:16)
[2020-09-20] MEDS: PREDNISONE 20 MG TABLET PO SCH (18:04)
--- NOTE | 2020-09-20 18:35 | PDOC PROGRESS REPORT ---
Subjective Date:: 09/20/20 Subjective:: Patient was seen on morning rounds. She was found resting in bed, comfortably, on room air. She complains of fatigue today, but otherwise states she feels slightly better. She denies fever, chills, chest pain, palpitations, dyspnea, abd pain, nausea/vomiting/diarrhea. She has no other questions or concerns today. No concerns per nursing. Reason For Visit: ACUTE RESP FAILURE W HXPOXIA,PAWEL,HEART FAILURE, Physical Exam Vital Signs: Temp Pulse Resp BP Pulse Ox 97.6 F 79 18 155/91 H 98 09/20/20 15:24 09/20/20 15:24 09/20/20 15:24 09/20/20 15:24 09/20/20 15:24 Intake & Output 09/19/20 09/20/20 09/21/20 06:59 06:59 06:59 Intake Total 932 1446 356 Output Total 1000 1375 Balance -68 71 356 Weight 82.7 kg 83.2 kg General appearance: PRESENT: no acute distress, cooperative, obese, well- developed, well-nourished Head exam: PRESENT: atraumatic, normocephalic Eye exam: PRESENT: conjunctiva pink, EOMI, PERRLA. ABSENT: scleral icterus Mouth exam: PRESENT: moist, tongue midline Respiratory exam: PRESENT: clear to auscultation beth, symmetrical, unlabored, other - room air. ABSENT: crackles, rales, rhonchi, wheezes Cardiovascular exam: PRESENT: RRR, +S1, +S2, systolic murmur. ABSENT: diastolic murmur, rubs Pulses: PRESENT: normal dorsalis pedis pul Vascular exam: PRESENT: normal capillary refill Gentrourinary exam: PRESENT: indwelling catheter Extremities exam: PRESENT: full ROM, +2 edema - pitting BLE. ABSENT: calf tenderness, clubbing, pedal edema Neurological exam: PRESENT: alert, awake, oriented to person, oriented to place, oriented to time, oriented to situation, CN II-XII grossly intact. ABSENT: motor sensory deficit Psychiatric exam: PRESENT: appropriate affect, normal mood. ABSENT: homicidal ideation, suicidal ideation Skin exam: PRESENT: dry, intact, warm. ABSENT: cyanosis, rash Results Laboratory Results: 09/20/20 09:20 09/20/20 09:20 09/20/20 09/20/20 09:20 09:20 WBC 11.6 H RBC 4.11 Hgb 11.1 L D Hct 35.0 L MCV 85 D MCH 27.1 MCHC 31.9 L RDW 22.4 H Plt Count 148 L Sodium 134.7 L Potassium 5.2 H Chloride 101 Carbon Dioxide 24 Anion Gap 10 BUN 118 H Creatinine 1.63 H Est GFR ( Amer) 39 L Glucose 425 H* Calcium 8.5 Total Bilirubin 2.9 H AST 129 H Alkaline Phosphatase 805 H Total Protein 5.8 L Albumin 3.3 L 09/16/20 09/16/20 09/16/20 03:11 08:43 13:11 Troponin I 0.062 0.064 NT-Pro-B Natriuret Pep [id number] H 09/16/20 09/18/20 09/19/20 18:06 04:28 04:42 Troponin I 0.058 NT-Pro-B Natriuret Pep [id number] H 420054 H 09/20/20 09:20 Troponin I NT-Pro-B Natriuret Pep [id number] H Impressions: Chest X-Ray 09/16/20 03:17 IMPRESSION: Cardiomegaly with small bibasilar effusions and mild interstitial prominence copyright 2011 [employer]- All Rights Reserved Abdomen Ultrasound 09/16/20 07:07 IMPRESSION: 1. Mild hepatomegaly with trace perihepatic fluid. 2. Prior cholecystectomy. Chest CT 09/16/20 13:16 IMPRESSION: Cardiomegaly with small bilateral pleural effusions, right greater than left, with mild associated basilar atelectasis. Scattered mildly enlarged mediastinal nodes, stable and nonspecific. Abdomen/Pelvis CT 09/16/20 13:17 IMPRESSION: 1. Postsurgical changes from prior [place]. No evidence of inte stinal obstruction. Area of indistinct small bowel wall thickening and mild adjacent stranding within the right lower quadrant, possibly enteritis. Recommend correlation with patient symptoms. 2. Evidence of volume overload with small bilateral effusions, small volume ascites and diffuse anasarca. 3. Additional incidental findings as above. Lung Scan-VQ NM 09/16/20 15:45 IMPRESSION: NORMAL PERFUSION LUNG SCAN. Assessment and Plan - Diagnosis (1) Congestive heart failure Is this a current diagnosis for this admission?: Yes Plan: Evidence of fluid volume overload on exam. proBNP 193,000-> 191,000 Troponin indeterminate but flat x3 TTE (08/23/20) showed severe LV dysfunction with EF 20-25% and moderate RV dysfunction, no WMA. Followed by Dr. Wren as outpatient. Continue home dose Metoprolol and spironolactone. Increase Entresto today. Diurese with IV Furosemide. Continue daily statin and Eliquis. Cardiology consulted. Discussed w/ Dr. Palacios today; recommends amiodarone for PAF. Discussed with Dr. Wren today. [facility] stated that the patient did not have a bed offer for her cardiac cath. She is scheduled for an outpati ent cath on Saturday. If we can continue to diurese her and patient is stable for discharge on , she could report to [facility] for her planned procedure as an outpatient on Saturday. Otherwise, when patient is ready for discharge, will need to leave with [facility]. Cardiac Diet. Fluid restricted. Daily weights, strict I&Os (2) Acute respiratory failure with hypoxia Is this a current diagnosis for this admission?: Yes Plan: Improved; now maintaining saturations on room air. Secondary to CHF exacerbation. COVID ruled out. D.dimer elevated; fortunately VQ is negative. Remaining evaluation and management as above. (3) Acute on chronic renal failure Qualifiers: Acute renal failure type: unspecified Chronic kidney disease stage: stage 3 (moderate) Chronic kidney disease stage 3 subtype: stage 3b (GFR 30-44) Qu alified Code(s): N17.9 - Acute kidney failure, unspecified; N18.32 - Chronic kidney disease, stage 3b Is this a current diagnosis for this admission?: Yes Plan: Improved; CR 2.11/BUN 96-> 1.63/118 Baseline CR 1.3 Optimize cardiac output. Cautiously diurese. Avoid nephrotoxic medications as able; renally dose where appropriate. Strict I&Os Follow chemistries. (4) Anemia Qualifiers: Anemia type: other cause Other causes of anemia: other cause, not classifie d Qualified Code(s): D64.89 - Other specified anemias Is this a current diagnosis for this admission?: Yes Plan: s/p 2 units PRBC Hgb 8.7-> 7.9-> 8.0-> 7.9-> 11.1 No evidence of bleeding. Keep Hgb >8 Follow CBC. (5) Hypertension Qualifiers: Hypertension type: essential hypertension Qualified Code(s): I10 - Essential (primary) hypertension Is this a current diagnosis for this admission?: Yes Plan: Hypertensive; 155/91, w/ evidence of fluid volume overload. Continue home dose antihypertensives; metoprolol and spironolactone. Increase Entresto Furosemide as above. Adjust medications as indicated. Cardiac diet. Outpatient PCP follow up. (6) Hypothyroidism Qualifiers: Hypothyroidism type: acquired Qualified Code(s): E03.9 - Hypothyroidism, unspecified Is this a current diagnosis for this admission?: Yes Plan: Continue home dose levothyroxine. (7) Systemic lupus erythematosus arthritis Is this a current diagnosis for this admission?: Yes Plan: Continue home dose Prednisone at discharge. Outpatient follow up with Rheumatology. (8) Chronic ITP (idiopathic thrombocytopenia) Is this a current diagnosis for this admission?: Yes Plan: Plt currently 148; overall stable As low as 66 last month. Continue home dose Eliquis; hold for PLT <50 or active bleeding. Continue home dose Prednisone at discharge. Consider Hematology consultation. Follow daily CBC (9) Elevated liver function tests Is this a current diagnosis for this admission?: Yes Plan: Secondary to CHF exacerbation. Overall stable. Avoid hepatotoxic medications. Follow up chemistry. (10) Suspected COVID-19 virus infection Is this a current diagnosis for this admission?: Yes Plan: Ruled out; COVID negative x 2 D-dimer 4.82, ferritin 312, CRP 43.2, LDH 804. Continue home dose Eliquis r/t d-dimer results. Received Ivermectin 12 mg x2 doses, Zinc, vitamin D, vitamin C, and melatonin supplementation. - Plan Summary Summary: (1) Acute respiratory failure with hypoxia (2) Suspected COVID-19 virus infection (3) Acute on chronic systolic (congestive) heart failure (4) Acute on chronic renal failure (5) Anemia (6) Hypertension (7) Hypothyroidism (8) Systemic lupus erythematosus arthritis (9) Chronic ITP (idiopathic thrombocytopenia) (10) Elevated liver function tests (11) Nonsustained V. tach (12) Pulmonary hypertension 09/17/2020 Respiratory failure with hypoxia-currently on 2 L nasal cannula maintaining saturation in the high 90s. Could probably tolerate 1 L. Continue to monitor. Suspected COVID-19 viral infection-continue current treatment regimen based on clinical aspects. Acute on chronic systolic heart failure-the patient has an ejection fraction of only 20 to 25%. Significant decrease in left ventricular wall motion. Continue to try to optimize medication regimen and fluid balance. Acute on chronic kidney failure-BUN and creatinine have increased. I am going to halve the IV Lasix dosing and recheck labs tomorrow. The patient may in fact need a small amount of IV fluids. Anemia-continue to monitor CBC. Hemoglobin of 8.7 is in fact better than her last admission. No evidence of sheron bleeding. Hypertension-continue to monitor blood pressure and telemetry. Adjust medications accordingly. Hypothyroidism-continue levothyroxine Lupus-continue current dose of Solu-Medrol. Return to baseline prednisone dose at discharge ITP-platelet count is 140. Continue to follow closely. It is slightly down from admission value of 162. Continue Eliquis. Consider hematology consultation. Elevated liver function tests-likely related to exacerbation of heart failure. Continue to monitor. 09/18/2020 Respiratory failure with hypoxia-continues supplemental oxygen requirements. Taper to room air as tolerated. Suspected Covid infection-initial testing was negative. Inflammatory markers were consistent with Covid infection. Will recheck tomorrow. Acute on chronic kidney failure-BUN and creatinine have increased again. I will increase IV fluids as I think she has diminished intravascular volume. Between the low albumin and anemia she is third spacing fluid. I will give her a trial dose of albumin. Hypertension-continue current regimen and monitor blood pressure Hypothyroidism-continue levothyroxine Systemic lupus erythematosus-continue Solu-Medrol while hospitalized. Return to baseline prednisone dosing after discharge ITP-platelet count improved somewhat to 150. Continue to monitor. Elevated transaminases-improving slowly. Continue to monitor. Nonsustained ventricular tachycardia-2 episodes on telemetry noted today. She was asymptomatic. Continue to monitor on telemetry. Continue to monitor electrolytes. Cardiology consult with her child support officer tomorrow. 09/19/2020 Respiratory failure with hypoxia-on room air at this time. Continue to maximize therapy Acute on chronic kidney failure-creatinine is slightly better. With transfusion she may get better perfusion of the kidneys. Anemia-we will transfuse 2 units packed red blood cells since her hemoglobin is not improving on its own. Systemic lupus erythematosus-continue Solu-Medrol ITP-monitor platelet count Elevated transaminases-likely related to heart failure The patient had short runs of ventricular tachycardia yesterday. She was seen by cardiology today. Because of her depressed ejection fraction with kidney failure and abnormal telemetry cardiology feels that it is best to transfer her to [facility]. She is scheduled for a cardiac catheterization there Saturday. They will have greater capability of intervention in the event of complications. - Time Time Spent with patient: 35 or more minutes Medications reviewed and adjusted accordingly: Yes Anticipated Discharge Disposition: Home, Self Care Anticipated Discharge Timeframe: within 72 hours
[2020-09-20] MEDS: ATORVASTATIN CALCIUM 40 MG TABLET PO SCH (22:15)
[2020-09-20] MEDS: AMIODARONE HCL 200 MG TABLET PO SCH (22:16)
[2020-09-21] MEDS: FUROSEMIDE INJ/PF 20 MG/2 ML SDV IV SCH ×2 (03:51→09:02)
[2020-09-21] MEDS: LEVOTHYROXINE SODIUM 0.1 MG TABLET PO SCH (05:29)
[2020-09-21 05:48] LABS: HEMATOCRIT 34.3 % (36.0-47.0); HEMOGLOBIN 10.9 g/dL (12.0-15.5); MEAN CORPUSCULAR HEMOGLOBIN 26.9 pg (27.0-33.4); MEAN CORPUSCULAR HGB CONC 31.8 g/dL (32.0-36.0); MEAN CORPUSCULAR VOLUME 85 fl (80-97); PLATELET COUNT 133 10^3/uL (150-450); RED BLOOD COUNT 4.06 10^6/uL (3.72-5.28); RED CELL DISTRIBUTION WIDTH 22.1 % (11.5-14.0)
[2020-09-21 05:52] LABS: ALBUMIN 3.1 g/dL (3.5-5.0); ALKALINE PHOSPHATASE 700 U/L (38-126); ANION GAP 10 (5-19); ASPARTATE AMINO TRANSFERASE 119 U/L (14-36); BILIRUBIN,DIRECT 1.7 mg/dL (0.0-0.4); BILIRUBIN,TOTAL 2.8 mg/dL (0.2-1.3); CARBON DIOXIDE 27 mmol/L (22-30); CHLORIDE 103 mmol/L (98-107); GLUCOSE 185 mg/dL (75-110); POTASSIUM 4.9 mmol/L (3.6-5.0); TOTAL PROTEIN 5.4 g/dL (6.3-8.2)
[2020-09-21 05:59] LABS: BLOOD UREA NITROGEN 122 mg/dL (7-20)
[2020-09-21 08:18] VITALS: BP 148/87
--- NOTE | 2020-09-21 08:47 | PDOC TRANSFER SUMMARY ---
General Admission Date/PCP: 09/16/20 18:24 DANISH SMITH MD Admission Date: 09/16/20 Transfer Date: 09/21/20 Accepting Facility: [facility] Accepting Physician: Dr. Teddy Mo Resuscitation Status: Full Code - Transfer Diagnosis (1) Congestive heart failure Is this a current diagnosis for this admission?: Yes (2) Acute respiratory failure with hypoxia Is this a current diagnosis for this admission?: Yes (3) Acute on chronic renal failure Is this a current diagnosis for this admission?: Yes (4) Anemia Is this a current diagnosis for this admission?: Yes (5) Hypertension Is this a current diagnosis for this admission?: Yes (6) Hypothyroidism Is this a current diagnosis for this admission?: Yes (7) Systemic lupus erythematosus arthritis Is this a current diagnosis for this admission?: Yes (8) Chronic ITP (idiopathic thrombocytopenia) Is this a current diagnosis for this admission?: Yes (9) Elevated liver function tests Is this a current diagnosis for this admission?: Yes (10) Suspected COVID-19 virus infection Is this a current diagnosis for this admission?: Yes - Transfer Medications Home Medications: Levothyroxine Sodium [Synthroid] 200 mcg PO Q6AM 06/14/20 Multivitamin [Tab-A-Carter (Multiple Vitamin) Tablet] 1 tab PO DAILY 06/23/20 Prednisone [Deltasone 20 mg Tablet] 20 mg PO BID 08/23/20 Calcium Carbonate [Calcium] 600 mg PO DAILY 09/16/20 Furosemide [Lasix 40 mg Tablet] 40 mg PO BID 09/16/20 Pantoprazole Sodium [Protonix [address] Tablet] 20 mg PO DAILY 09/16/20 Sacubitril/Valsartan [Entresto 24 mg/26 mg Tablet] 1 tab PO BID 09/16/20 Transfer Medications: Current Medications Acetaminophen (Acetaminophen 325 Mg Tablet) 650 mg PO Q4HP PRN PRN Reason: FOR PAIN OR TEMP Stop: 10/16/20 18:19 Al Hydrox/Mg Hydrox/Simethicone (Mag Hydrox/Al Hydrox/Simeth Susp 30 Ml Udcup) 30 ml PO Q4HP PRN PRN Reason: HEARTBURN Stop: 10/16/20 18:19 Albuterol (Albuterol Sulfate 0.083% Neb 2.5 Mg/3 Ml Ampul) 2.5 mg NEB RTQ6HP PRN PRN Reason: SHORTNESS OF BREATH Stop: 10/16/20 18:24 Last Admin: 09/18/20 14:55 Dose: 2.5 mg Documented by: Amiodarone HCl (Amiodarone Hcl 200 Mg Tablet) 200 mg PO Q12 SHIVANI Stop: 10/20/20 21:59 Last Admin: 09/20/20 22:16 Dose: 200 mg Documented by: Apixaban (Apixaban 5 Mg Tablet) 5 mg PO BID SHIVANI Stop: 10/17/20 09:59 Last Admin: 09/20/20 18:04 Dose: 5 mg Documented by: Aspirin (Aspirin 81 Mg Tablet, Ent Coated) 81 mg PO DAILY SHIVANI Stop: 10/17/20 09:59 Last Admin: 09/20/20 09:36 Dose: 81 mg Documented by: Atorvastatin Calcium (Atorvastatin Calcium 40 Mg Tablet) 40 mg PO QHS SHIVANI Stop: 10/16/20 21:59 Last Admin: 09/20/20 22:15 Dose: 40 mg Documented by: Calcium Carbonate (Calcium Carbonate 600 Mg Tablet) 600 mg PO DAILY SHIVANI Stop: 10/17/20 09:59 Last Admin: 09/20/20 09:40 Dose: 600 mg Documented by: Dextrose (Dextrose 50%-Water 25 Gm/50 Ml Disp.Syrin) 12.5 gm IV PRN PRN; Protoc ol PRN Reason: FOR BG 50-69 IN ALERT PATIENT Stop: 10/20/20 10:28 Dextrose (Dextrose 50%-Water 25 Gm/50 Ml Disp.Syrin) 25 gm IV PRN PRN; Protocol PRN Reason: PER PROTOCOL Stop: 10/20/20 10:28 Furosemide (Furosemide Inj/Pf 20 Mg/2 Ml Sdv) 20 mg IV Q8A SHIVANI Stop: 10/20/20 09:59 Last Admin: 09/21/20 03:51 Dose: 20 mg Documented by: Glucagon (Glucagon,Human Recomb 1 Mg Inj) 1 mg IM PRN PRN; Protocol PRN Reason: Evaluate for BG < 70 Stop: 10/20/20 10:28 Glucose (Dextrose 40% Gel 15 Gm Tube) 15 gm PO PRN PRN; Protocol PRN Reason: FOR BG 50-69 IN ALERT PATIENT Stop: 10/20/20 10:28 Glucose (Dextrose 40% Gel 15 Gm Tube) 30 gm PO PRN PRN; Protocol PRN Reason: FOR BG < 50 IN ALERT PATIENT Stop: 10/20/20 10:28 Insulin Human Lispro (Insulin Lispro 100 Unit/Ml 3 Ml Vial) 0 - 12 unit SUBCUT ACHS [facility]; Protocol Stop: 10/20/20 10:59 Last Admin: 09/20/20 22:16 Dose: 8 unit Documented by: Levothyroxine Sodium (Levothyroxine Sodium 0.1 Mg Tablet) 0.2 mg PO Q6AM SHIVANI Stop: 10/17/20 05:59 Last Admin: 09/21/20 05:29 Dose: Not Given Documented by: Magnesium Hydroxide (Magnesium Hydroxide Susp 30 Ml Udcup) 30 ml PO HSP PRN PRN Reason: FOR CONSTIPATION Stop: 10/16/20 18:19 Metoprolol Succinate (Metoprolol Succinate 50 Mg Tab.Sr.24h) 100 mg PO DAILY [facility] Stop: 10/17/20 09:59 Last Admin: 09/20/20 09:40 Dose: 100 mg Documented by: Multivitamins (Multivitamin Tablet) 1 tab PO DAILY [facility] Stop: 10/17/20 09:59 Last Admin: 09/20/20 09:36 Dose: 1 tab Documented by: Pantoprazole Sodium (Pantoprazole Sodium 20 Mg Tablet.) 20 mg PO DAILY [facility] Stop: 10/17/20 09:59 Last Admin: 09/20/20 09:36 Dose: 20 mg Documented by: Prednisone (Prednisone 20 Mg Tablet) 20 mg PO BID [facility] Stop: 10/20/20 17:59 Last Admin: 09/20/20 18:04 Dose: 20 mg Documented by: Sacubitril/Valsartan (Sacubitril/Valsartan 49 Mg/51 Mg Tablet) 1 tab PO BID [facility] Stop: 10/21/20 09:59 Sodium Chloride (Normal Saline Flush 2.5 Ml Disp.Syrin) 2.5 ml IV Q8 [facility] Stop: 10/16/20 21:59 Last Admin: 09/21/20 05:29 Dose: Not Given Documented by: Spironolactone (Spironolactone 25 Mg Tablet) 50 mg PO DAILY [facility] Stop: 10/17/20 09:59 Last Admin: 09/20/20 09:36 Dose: 50 mg Documented by: - Allergies Allergies/Adverse Reactions: Iodinated Contrast Media Allergy (Verified 08/23/20 08:46) Generalized rash - Diet/Activity Discharge Diet: Cardiac Hospital Course Hospital Course: Per H&P: DANDRE SANTOS is a 65 year old female with a past medical history of SLE, chronic systolic CHF, hypertension, hyperlipidemia, hypothyroidism, ITP, on high-dose steroids, who was recently admitted to our facility last month for CHF exacerbation and new onset atrial fibrillation RVR, who presented to the emergency department today with a complaint of 24 hours of rapidly worsening shortness of breath. She denies all other symptoms; specifically no fever, palpitations, chest pain, cough, abdominal pain, nausea, diarrhea, or peripheral edema. Evaluation in the emergency department revealed stable vital signs other than moderate hypertension (155/95). CBC demonstrated leukocytosis (12.9) baseline anemia (hemoglobin 8.7; improved from last admission), PT/INR appropriate for patient on chronic anticoagulation (PT 26/INR 2.38), however, D-dimer elevated 4.82. Chemistry was notable for PAWEL (CR 2.11/BUN 96; baseline CR 1.3). LFTs were elevated (T bili 5.2, AST 345, ALT 257, alk phos 864). Ferritin, LDH, and CRP all mildly elevated; Covid pending. Troponin indeterminately elevated but flat; 0.062-> 0.064. proBNP markedly elevated to 193,000 (130,000 last admission). Urinalysis negative. EKG shows normal sinus rhythm. Chest x-ray demonstrated cardiomegaly with small bibasilar effusions. Abdominal ultrasound with mild hepatomegaly and trace perihepatic fluid. Chest CT/abdomen/pelvis showed cardiomegaly with small bilateral pleural effusions, basilar atelectasis, scattered mildly enlarged mediastinal nodes stable from prior exam, indistinct small bowel wall thickening within the right lower quadrant possibly enteritis, and evidence of anasarca. VQ scan pending. Patient is referred to the hospitalist service for further evaluation management of the above stay complaints and findings. Course: (1) Congestive heart failure Evidence of fluid volume overload on exam. proBNP 193,000-> -> 143,000-> 191,000 Troponin indeterminate but flat x3 TTE (08/23/20) showed severe LV dysfunction with EF 20-25% and moderate RV dysfunction, no WMA. Followed by Dr. Wren as outpatient. Continue home dose Metoprolol and spironolactone. Increased Entresto 09/20/20. Diurese with IV Furosemide. Continue daily statin and Eliquis. Cardiology consulted. Discussed w/ Dr. Palacios; recommends amiodarone for PAF. Started on 200 mg q12h on 09/20/20. Cardiac Diet. Fluid restricted. Daily weights, strict I&Os Have received notification from [facility] that the patient has been accepted by Dr. Mechelle Mo for transfer to their facility today for cardiac catheterization. (2) Acute respiratory failure with hypoxia Improved; now maintaining saturations on room air. Secondary to CHF exacerbation. COVID ruled out. D.dimer elevated; fortunately VQ is negative. Remaining evaluation and management as above. (3) Acute on chronic renal failure Variable; cardiorenal syndrome CR 2.11/BUN 96-> 1.63/118-> 2.05/122; worsened today following increase of furosemide. Baseline CR 1.3 Optimize cardiac output. Cautiously diurese. Avoid nephrotoxic medications as able; renally dose where appropriate. Strict I&Os Follow chemistries. (4) Anemia s/p 2 units PRBC Hgb 8.7-> 7.9-> 8.0-> 7.9-> 11.1-> 10.9 No evidence of bleeding. Keep Hgb >8 Follow CBC. (5) Hypertension Hypertensive; 148/87, w/ evidence of fluid volume overload. Continue home dose antihypertensives; metoprolol and spironolactone. Increased Entresto 09/20/20 Furosemide as above. Cardiac diet. Outpatient PCP follow up. (6) Hypothyroidism Continue home dose levothyroxine. (7) Systemic lupus erythematosus arthritis Transitioned from Solu-Medrol to home hose prednisone 09/20/20. Outpatient follow up with Rheumatology. (8) Chronic ITP (idiopathic thrombocytopenia) Plt currently 133; overall stable As low as 66 last month. Continue home dose Eliquis; hold for PLT <50 or active bleeding. Transitioned from Solu-Medrol to home hose prednisone 09/20/20. Consider Hematology consultation. (9) Elevated liver function tests Secondary to CHF exacerbation. Overall stable. Avoid hepatotoxic medications. (10) Suspected COVID-19 virus infection Ruled out; COVID negative x 2 D-dimer 4.82, ferritin 312, CRP 43.2, LDH 804. Continue home dose Eliquis r/t d-dimer results. Received Ivermectin 12 mg x2 doses, Zinc, vitamin D, vitamin C, and melatonin supplementation. Physical Exam Vital Signs: Temp Pulse Resp BP Pulse Ox 97.3 F 66 18 168/102 H 100 09/20/20 23:52 09/21/20 07:00 09/20/20 23:52 09/20/20 23:52 09/20/20 23:52 Intake & Output 09/20/20 09/21/20 09/22/20 06:59 06:59 06:59 Intake Total 1446 1195 Output Total 1375 1400 Balance 71 -205 Weight 83.2 kg 83.8 kg General appearance: PRESENT: no acute distress, cooperative, obese, well- developed, well-nourished Head exam: PRESENT: atraumatic, normocephalic Eye exam: PRESENT: conjunctiva pink, EOMI, PERRLA. ABSENT: scleral icterus Mouth exam: PRESENT: moist, tongue midline Respiratory exam: PRESENT: clear to auscultation beth, symmetrical, unlabored, other - room air. ABSENT: rales, rhonchi, wheezes Cardiovascular exam: PRESENT: RRR, +S1, +S2, systolic murmur. ABSENT: diastolic murmur, rubs Vascular exam: PRESENT: normal capillary refill Gentrourinary exam: PRESENT: indwelling catheter Extremities exam: PRESENT: full ROM, +2 edema - pitting BLE. ABSENT: calf tenderness, clubbing, pedal edema Neurological exam: PRESENT: alert, awake, oriented to person, oriented to place, oriented to time, oriented to situation, CN II-XII grossly intact. ABSENT: motor sensory deficit Psychiatric exam: PRESENT: appropriate affect, normal mood. ABSENT: homicidal ideation, suicidal ideation Skin exam: PRESENT: dry, intact, warm. ABSENT: cyanosis, rash Results Laboratory Results: 09/21/20 05:06 09/21/20 05:06 09/20/20 09/20/20 09/21/20 09:20 09:20 05:06 WBC 11.6 H 13.0 H RBC 4.11 4.06 Hgb 11.1 L D 10.9 L Hct 35.0 L 34.3 L MCV 85 D 85 MCH 27.1 26.9 L MCHC 31.9 L 31.8 L RDW 22.4 H 22.1 H Plt Count 148 L 133 L Sodium 134.7 L Potassium 5.2 H Chloride 101 Carbon Dioxide 24 Anion Gap 10 BUN 118 H Creatinine 1.63 H Est GFR ( Amer) 39 L Glucose 425 H* Calcium 8.5 Total Bilirubin 2.9 H AST 129 H Alkaline Phosphatase 805 H Total Protein 5.8 L Albumin 3.3 L 09/21/20 05:06 WBC RBC Hgb Hct MCV MCH MCHC RDW Plt Count Sodium 139.9 Potassium 4.9 Chloride 103 Carbon Dioxide 27 Anion Gap 10 BUN 122 H Creatinine 2.05 H Est GFR ( Amer) 30 L Glucose 185 H Calcium 9.0 Total Bilirubin 2.8 H AST 119 H Alkaline Phosphatase 700 H Total Protein 5.4 L Albumin 3.1 L 09/16/20 09/16/20 09/16/20 03:11 08:43 13:11 Troponin I 0.062 0.064 NT-Pro-B Natriuret Pep [id number] H 09/16/20 09/18/20 09/19/20 18:06 04:28 04:42 Troponin I 0.058 NT-Pro-B Natriuret Pep [id number] H [id number] H 09/20/20 09:20 Troponin I NT-Pro-B Natriuret Pep [id number] H Impressions: Chest X-Ray 09/16/20 03:17 IMPRESSION: Cardiomegaly with small bibasilar effusions and mild interstitial prominence copyright 2011 [employer]- All Rights Reserved Abdomen Ultrasound 09/16/20 07:07 IMPRESSION: 1. Mild hepatomegaly with trace perihepatic fluid. 2. Prior cholecystectomy. Chest CT 09/16/20 13:16 IMPRESSION: Cardiomegaly with small bilateral pleural effusions, right greater than left, with mild associated basilar atelectasis. Scattered mildly enlarged mediastinal nodes, stable and nonspecific. Abdomen/Pelvis CT 09/16/20 13:17 IMPRESSION: 1. Postsurgical changes from prior Whipple. No evidence of intestinal obstruction. Area of indistinct small bowel wall thickening and mild adjacent stranding within the right lower quadrant, possibly enteritis. Recommend correlation with patient symptoms. 2. Evidence of volume overload with small bilateral effusions, small volume ascites and diffuse anasarca. 3. Additional incidental findings as above. Lung Scan-[facility] 09/16/20 15:45 IMPRESSION: NORMAL PERFUSION LUNG SCAN. Plan Discharge Plan: Transfer to [facility]. Time Spent: Greater than 30 Minutes
[2020-09-21] MEDS: INSULIN LISPRO 100 UNIT/ML 3 ML VIAL SUBCUT SCH (08:55)
[2020-09-21] MEDS: SPIRONOLACTONE 25 MG TABLET PO SCH (09:02)
[2020-09-21] MEDS: PREDNISONE 20 MG TABLET PO SCH (09:02)
[2020-09-21] MEDS: CALCIUM CARBONATE 600 MG TABLET PO SCH (09:02)
[2020-09-21] MEDS: PANTOPRAZOLE SODIUM 20 MG TABLET.DR PO SCH (09:02)
[2020-09-21] MEDS: METOPROLOL SUCCINATE 50 MG TAB.SR.24H PO SCH (09:02)
[2020-09-21] MEDS: AMIODARONE HCL 200 MG TABLET PO SCH (09:02)
[2020-09-21] MEDS: MULTIVITAMIN TABLET PO SCH (09:02)
[2020-09-21] MEDS ORDERED: SACUBITRIL/VALSARTAN 49 MG/51 MG TABLET PO SCH (10:00)
== END 2020-09-21 09:48 | disposition short-term general hospital (02) | DRG 291 ==
LOC: ER 02:49 → EH 18:24 → 4N 20:22
PROVIDERS: ADMIT Hospitalist; ATTEND Registered Nurse
PROC: 30233N1 Transfusion of Nonautologous Red Blood Cells into Peripheral Vein, Percutaneous Approach (ICD-10-PCS; principal; 2020-09-16)
DX: I13.0 Hypertensive heart and chronic kidney disease with heart failure and stage 1 through stage 4 chronic kidney disease, or unspecified chronic kidney disease (principal); I50.23 Acute on chronic systolic (congestive) heart failure; J96.01 Acute respiratory failure with hypoxia; D69.3 Immune thrombocytopenic purpura; N17.9 Acute kidney failure, unspecified; I47.2 Ventricular tachycardia; D61.818 Other pancytopenia; I48.0 Paroxysmal atrial fibrillation; K21.9 Gastro-esophageal reflux disease without esophagitis; E78.5 Hyperlipidemia, unspecified; N18.32 Chronic kidney disease, stage 3b; E03.9 Hypothyroidism, unspecified; I42.0 Dilated cardiomyopathy; M19.90 Unspecified osteoarthritis, unspecified site; D63.1 Anemia in chronic kidney disease; M32.9 Systemic lupus erythematosus, unspecified; Z90.49 Acquired absence of other specified parts of digestive tract; Z91.041 Radiographic dye allergy status; Z87.891 Personal history of nicotine dependence; Z90.710 Acquired absence of both cervix and uterus; Z79.890 Hormone replacement therapy; Z82.49 Family history of ischemic heart disease and other diseases of the circulatory system; Z79.01 Long term (current) use of anticoagulants; Z79.899 Other long term (current) drug therapy; Z79.51 Long term (current) use of inhaled steroids; Z79.52 Long term (current) use of systemic steroids; I27.20 Pulmonary hypertension, unspecified; Z20.822 Contact with and (suspected) exposure to COVID-19
CPT/HCPCS: 0202U; 36415; 36430; 71045; 71250; 74176; 76705; 78582; 80053; 80307; 81001; 82272; 82728; 82962; 83605; 83615; 83690; 83735; 83880; 84484; 85025; 85027; 85379; 85610; 85730; 86140; 86850; 86900; 86901; 86920; 87040; 87635; 93005; 93010; 94640; 96374; 99285; A9540; A9567; C9803; J1815; J1940; J2920; J3490; J7512; J7613; P9016; P9047; Q9969